=== PATIENT | female | born 1980 | race Caucasian/White ===

== ENCOUNTER 2018-07-15 03:45 | Emergency (ER) | payer OTHER, MEDICAID ==
[~2018-07-15] VITALS: Ht 167.6 cm; Wt 138.3 kg
[~2018-07-15 03:45] MED LIST: ABILIFY20 MG OR; ACCUNEB SO1.25 MG/1 INH; ACETAMINOPHEN-1 EAC1 PO; ACYCLOVIR 400400 MG; ACYCLOVIR 400400 MG PO; ADVIL200 MG PO; ALBUTEROL2.5 MG/0.5 INH; ALDOMET250 MG PO; AMBIEN 10 MG TA10 MG PO; AMBIEN 5 MG TABL5 M1 PO; AMILORIDE HCL-1 EACH OR; AMITRIPTYLINE H10 M3 PO; AMITRIPTYLINE H25 M2 PO; AMITRIPTYLINE H25 M3 PO; AMLODIPINE-ATO1 EAC6; AMLODIPINE-BEN1 EAC2 PO; AMLODIPINE-BEN1 EAC3; AMLODIPINE-BEN1 EAC3 PO; AMLODIPINE-BEN1 EAC5 PO; ARIXTRA; ASPIR 8181 MG PO; ATIVAN1 MG PO; AUGMENTIN 875875 MG PO; AZOR 10-40 MG1 EACH; AZOR 10-40 MG1 EACH PO; AZOR 5-20 MG T1 EACH OR; B-COMPLEX-VITA1 EACH PO; B12INJ; BACTRIM DS TAB1 EACH PO; BENADRYL25 MG PO; BENAZEPRIL HCL10 MG PO; BENTYL 10 MG CA10 M1 PO; BENTYL10 MG PO; BENTYL20 MG PO; BIRTH CONTROL PILLS PO; BRINTELLIX10 MG PO; BRINTELLIX20 MG PO; BUSPIRONE HCL10 MG PO; CAL-MAG-ZINC T1 EACH PO; CALCITRIOL0.25 MCG OR; CALCITRIOL0.5 MCG; CALCITRIOL0.5 MCG PO; CALCITRIOL1 MCG/1 M5 PO; CALCIUM 600 +1 EA10 PO; CALCIUM 600 +1 EAC1 PO; CALCIUM CITRAT1 EA14 OR; CALCIUM CITRAT1 EA15 OR; CALCIUM CITRAT250 MG; CALCIUM MAGNES1 EACH PO; CALCIUM OYSTER500 MG PO; CARAFATE 1 GM TA1 G1 PO; CARAFATE1 GM/10 ML; CARISOPRODOL 3350 MG PO; CARVEDILOL25 MG; CARVEDILOL25 MG PO; CARVEDILOL3.125 MG PO; CELEBREX 200 M200 M1 PO; CELEXA; CELEXA 20 MG TA20 M1 OR; CELEXA40 MG PO; CHANTIX0.5 MG PO; CHANTIX1 MG PO; CHLORPROMAZINE200 MG PO; CIPROFLOXACIN500 M1 PO; CITRATE OF MAG296 ML PO; CLEOCIN HCL300 MG PO; CLONAZEPAM 0.50.5 M1; CLONAZEPAM 0.50.5 M1 PO; CLONAZEPAM 1 MG1 M1 PO; COLACE 100 MG100 MG; COLACE 100 MG100 MG PO; COLACE100 MG PO; COMBIVENT INH; COMPAZINE10 M1 PO; COMPAZINE10 MG PO; COMPAZINE25 M1 PO; COMPAZINE25 M1 RC; COMPAZINE25 MG RECTAL; COREG CR20 MG; COREG25 MG PO; CYMBALTA30 MG PO; CYMBALTA60 MG; CYMBALTA60 MG PO; DARVOCET-N 1001 EACH PO; DEPAKOTE500 MG PO; DESYREL50 MG; DESYREL50 MG PO; DIAZEPAM 10 MG10 M2; DIOVAN160 MG PO; DOMPERIDONE PO; DOXEPIN 50MG CA50 M1 PO; DOXYCYCLINE 10100 MG PO; E-MYCIN250 MG; E-MYCIN250 MG PO; EFFER-K 10 MEQ10 ME1 PO; EFFEXOR XR75 MG PO; EFFEXOR75 MG; ENDUR-ACIN500 MG PO; ERY-TAB250 MG PO; ERYTHROCIN STE250 MG; ERYTHROMYCIN250 MG PO; ETODOLAC500 MG; ETODOLAC500 MG PO; EXPECTA PRENAT1 EACH PO; FIBERCON625 M1 PO; FLAGYL500 MG PO; FLEXERIL; FLEXERIL PO; FLONASE 0.05%50 MCG; FLONASE16 GM; FOLIC ACID 40400 MCG PO; GABAPENTIN 100100 MG PO; GEODON80 MG PO; GLUCOPHAGE XR750 MG; GLUCOPHAGE XR750 MG OR; GLUCOPHAGE XR750 MG PO; GLUCOPHAGE1000 MG; GLUCOPHAGE500 MG PO; GLUMETZA1000 PO; GLYCOLAX POWDER17 G1; HYDROCHLOROTHIA25 M2 PO; HYDROCODON-ACE1 EAC4 PO; HYDROCODON-ACE1 EAC7 PO; HYDROCODONE LIQUID; HYDROCODONE-ACE15 ML PO; HYDROCODONE-AP1 EAC6 PO; HYDROXYZINE HCL25 M1 PO; IBUPROFEN 400400 M1 PO; IBUPROFEN 600600 M1 PO; IBUPROFEN 800800 MG PO; IRON PO; IRON159 MG PO; IRON325 PO; JUNEL FE 1-201 EACH; JUNEL FE 1-201 EACH PO; JUNEL1 EAC1; JUNEL1 EAC1 PO; JUNEL1 EACH PO; KEFLEX500 M1 PO; KEFLEX500 MG PO; LAMICTAL 25 MG25 MG; LAMICTAL XR100 MG; LAMICTAL XR100 MG PO; LAMICTAL XR200 MG PO; LAMICTAL100 MG PO; LAMICTAL150 MG PO; LAMICTAL200 MG PO; LAMOTRIGINE150 MG PO; LASIX 20 MG TAB20 MG PO; LATUDA80 MG PO; LEVOTHROID175 MCG PO; LEVOTHROID25 MCG PO; LEVOTHYROXIN0.112 M1 PO; LEVOTHYROXIN0.125 M1 PO; LEVOTHYROXIN0.175 MG PO; LEVOTHYROXINE0.2 M1; LEVOTHYROXINE0.2 M1 PO; LINZESS145 MCG PO; LINZESS290 MCG; LINZESS290 MCG PO; LITHIUM CARBON600 MG PO; LOESTRIN 24 FE1 EACH PO; LOESTRIN1 EAC1 PO; LORATIDINE 10 M10 M1 PO; LOTREL 10-40 M1 EACH; LOTREL 10-40 M1 EACH PO; LUNESTA3 MG PO; MACROBID 100 M100 M1 PO; MAGNESIUM250 M1 PO; MEDROL DOSPAK21 TA1; MEDROLDOSEPACK PO; MELATONIN3 MG PO; METFORMIN 500500 MG PO; METFORMIN HCL500 MG PO; METOCLOPRAMIDE10 MG PO; MICROGESTIN FE1 EACH PO; MIDAMOR 5MG TABL5 M1 OR; MIDODRINE HCL2.5 M1 PO; MIRALAX17 GM PO; MOBIC15 MG PO; MULTI-VITAMIN1 EAC5 PO; MULTIVITAMINS1 EAC7 PO; NABUMETONE 750750 M1 PO; NAPROSYN500 MG PO; NEURONTIN 400400 M1 PO; NEURONTIN600 MG PO; NEXIUM40 MG PO; NITROFURANTOIN100 MG PO; NORCO 10-325 T1 EACH PO; NORCO 5-325 TA1 EAC1 PO; NORCO 5-325 TA1 EACH; NORCO 5-325 TA1 EACH PO; NORFLEX100 MG PO; NORVASC5 MG PO; OMACOR PO; OMEPRAZOLE20 M1 PO; ONDANSETRON HCL4 M2 PO; ONDANSETRON HCL4 M3 PO; ONDANSETRON ODT4 MG PO; OS-CAL 500+D C1 EACH PO; PENICILLIN VK250 MG PO; PERCOCET 5-3251 EACH; PERCOCET 5-3251 EACH PO; PERCOCET PO; PHENADOZ25 MG RC; PHENAZOPYRIDIN200 M2 PO; PHENERGAN 25 MG25 M1 PO; PHENERGAN25 M2 RC; POTASSIUM20 PO; PREDNISONE 10 M10 M1 PO; PREDNISONE 20 M20 M1 PO; PREDNISONE50 MG PO; PRENATAL PLUS1 EAC4; PRENATAL PLUS1 EAC5; PRENATAL PLUS1 EACH PO; PRILOSEC 10MG C10 M1 PO; PRILOSEC 20 MG20 MG PO; PRILOSEC20 MG PO; PROAIR HFA8.5 GM IH; PROAIR HFA8.5 GM INH; PROBIOTIC1 EAC1 PO; PROPRANOLOL 1010 M1; PROPRANOLOL 1010 M1 PO; PROPRANOLOL 1010 MG PO; PROTONIX40 M2 PO; PROTONIX40 MG PO; PROVENTIL HFA6.7 G1 INH; REGLAN 5 MG TAB5 MG PO; REMERON15 MG; REQUIP 0.25 M0.25 M1 PO; REQUIP 0.25 M0.25 MG; REQUIP 0.25 M0.25 MG OR; REQUIP1 MG PO; RESTORIL15 MG; RESTORIL15 MG PO; ROBAXIN 750 MG750 M1; ROBAXIN500 MG PO; SEROQUEL 100 M100 MG OR; SLOW-MAG64 MG OR; TESSALON PERLE100 MG PO; TESSALON200 MG PO; TOPIRAGEN50 MG OR; TORADOL 10 MG T10 MG PO; TRAMADOL 50 MG50 MG PO; TRAZODONE 150150 M1 PO; TYLENOL325 MG PO; ULTRACET TABLE1 EACH PO; ULTRAM 50MG TAB50 MG PO; ULTRAM50 MG PO; VALACYCLOVIR1000 MG; VALIUM5 MG PO; VANCOMYCIN1.25 GM/21 IV; VENTOLIN HFA INH8 GM IH; VICODIN 5-5001 EACH PO; VISTARIL 25 MG25 M1 PO; VITAMIN B12-FO1 EAC1 PO; VRAYLAR3 MG PO; ZANAFLEX4 MG PO; ZANTAC 150MG T150 M1 PO; ZITHROMAX TRI-500 MG PO; ZOFRAN 4 MG ORAL4 MG PO; ZOFRAN ODT4 MG PO; ZOFRAN ODT4 MG SUBLING; ZOFRAN4 MG PO; ZOFRAN8 MG PO; ZONEGRAN100 MG; ZOSYN 3.373.375 GM/1 IV; ZPAK PO; ZYRTEC10 MG PO; [UNRECOGNIZED DRUG - OTHER] PO; [UNRECOGNIZED DRUG - OTHER] PO; [UNRECOGNIZED DRUG - REMARK]; percocet
[2018-07-15 03:50] VITALS: BP 127/92
[2018-07-15] MEDS ORDERED: VRAYLAR3 MG PO (04:06)
[2018-07-15] MEDS ORDERED: CELEBREX 200 M200 MG PO (04:06)
[2018-07-15] MEDS ORDERED: COMPRO25 MG RECTAL (04:07)
[2018-07-15] MEDS ORDERED: TROKENDI XR25 MG PO (04:07)
[2018-07-15] MEDS ORDERED: NYAMYC15 GM TOP (04:07)
[2018-07-15] MEDS ORDERED: HYDROCODONE-AP1 EAC6 PO (04:10)
[2018-07-15] MEDS ORDERED: PENICILLIN V P500 MG PO (04:10)
== END 2018-07-15 04:19 | disposition home or self-care (01) ==
LOC: M.ERS 03:45
DX: K08.89 Other specified disorders of teeth and supporting structures (principal); R11.0 Nausea; F31.9 Bipolar disorder, unspecified; I11.0 Hypertensive heart disease with heart failure; I50.9 Heart failure, unspecified; I12.9 Hypertensive chronic kidney disease with stage 1 through stage 4 chronic kidney disease, or unspecified chronic kidney disease; E11.22 Type 2 diabetes mellitus with diabetic chronic kidney disease; N18.9 Chronic kidney disease, unspecified; Z98.84 Bariatric surgery status; Z98.890 Other specified postprocedural states; E89.0 Postprocedural hypothyroidism; F17.210 Nicotine dependence, cigarettes, uncomplicated; Z88.5 Allergy status to narcotic agent; Z88.8 Allergy status to other drugs, medicaments and biological substances

== ENCOUNTER 2018-07-20 06:18 | Emergency (ER) | payer OTHER, MEDICAID ==
[~2018-07-20] VITALS: Ht 167.6 cm; Wt 138.3 kg
[~2018-07-20 06:18] MED LIST changes: +CELEBREX 200 M200 MG PO; +COMPRO25 MG RECTAL; -EFFER-K 10 MEQ10 ME1 PO; +NYAMYC15 GM TOP; +PENICILLIN V P500 MG PO; +POTASSIUM CHLO10 MEQ PO; +SYNTHROID150 MCG PO; +TROKENDI XR25 MG PO
[2018-07-20 07:12] LABS: URINE BILIRUBIN NEGATIVE (Negative); URINE BLOOD NEGATIVE (Negative); URINE CLARITY CLEAR; URINE COLOR YELLOW; URINE GLUCOSE-RANDOM NEGATIVE (Negative); URINE KETONES NEGATIVE (Negative); URINE LEUKOCYTES-REFLEX TRACE (Negative); URINE NITRITE-REFLEX NEGATIVE (Negative); URINE PROTEIN NEGATIVE (Negative); URINE SPECIFIC GRAVITY 1.025 (1.005-1.030); URINE UROBILINOGEN 0.2 E.U./dl (0.2-1.0)
[2018-07-20 07:12] LABS: ABSOLUTE EOSINOPHILS 0.2 thou/uL (0.0-0.7); ABSOLUTE LYMPHOCYTES 1.9 thou/uL (0.8-5.3); ABSOLUTE MONOCYTES 0.4 thou/uL (0.0-1.2); BASOPHILS 0.5 %; EOSINOPHILS 3.2 %; HEMATOCRIT 46.4 % (37.0-47.0); HEMOGLOBIN 15.8 gm/dL (12.0-15.0); LYMPHOCYTES 28.9 %; MCHC 34.1 g/dL (28.0-37.0); MCV 96.6 fL (80.0-100.0); MONOCYTES 6.1 %; MPV 9.2 fl. (7.2-11.1); NUCLEATED RBCS 0 /100WBC; PLATELET COUNT* 167 thou/uL (150-400); POLYS 61.3 %; RBC 4.81 mil/uL (4.20-5.00); RDW-CV 13.7 % (10.5-14.5); WBC 6.5 thou/uL (4.0-11.0)
[2018-07-20 07:15] LABS: CALCIUM 8.2 mg/dL (8.5-10.1); CREATININE 1.4 mg/dL (0.6-1.3); POTASSIUM 3.4 mmol/L (3.5-5.1)
[2018-07-20 07:20] LABS: ALBUMIN 3.1 g/dL (3.4-5.0); TOTAL BILIRUBIN 0.4 mg/dL (<0.1-1.0); TOTAL PROTEIN 6.9 g/dL (6.4-8.2)
[2018-07-20] MEDS ORDERED: PHENERGAN 25 MG25 M1 PO (09:09)
[2018-07-20 09:38] VITALS: BP 114/66
[2018-07-21 13:32] LABS: SQUAMOUS 0-3 Few /LPF (0-3); URINE RBC 0-2 Rare /HPF (0-2); URINE WBC-REFLEX 0-5 Rare /HPF (0-5)
== END 2018-07-20 09:42 | disposition home or self-care (01) ==
LOC: M.ERS 06:18
PROVIDERS: Emergency Medicine
DX: R11.2 Nausea with vomiting, unspecified (principal); R10.13 Epigastric pain; R19.7 Diarrhea, unspecified; F31.9 Bipolar disorder, unspecified; F41.9 Anxiety disorder, unspecified; I11.0 Hypertensive heart disease with heart failure; I50.9 Heart failure, unspecified; E28.2 Polycystic ovarian syndrome; F17.210 Nicotine dependence, cigarettes, uncomplicated; Z88.6 Allergy status to analgesic agent; Z85.850 Personal history of malignant neoplasm of thyroid; Z88.8 Allergy status to other drugs, medicaments and biological substances; Z98.890 Other specified postprocedural states; Z90.49 Acquired absence of other specified parts of digestive tract

== ENCOUNTER 2018-07-28 23:39 | Inpatient (IN) | payer OTHER, MEDICAID ==
[~2018-07-28] VITALS: Ht 167.6 cm; Wt 133.8 kg
--- NOTE | ~2018-07-28 | CON ---
[address] [address] CONSULTATION Name: DOROTEO BHAKTA Room: [address] IN .R.#: [id number] Admission: 07/29/18 Attend Phys: Chad Carpenter MD Discharge: Date of : 76 Report #: [id number] THIS REPORT FOR: //name// CC: Babar Carpenter DATE OF SERVICE: 07/29/2018 REQUESTING PHYSICIAN: Dr. Chad Carpenter. REASON FOR CONSULTATION: Persistent nausea, vomiting and abdominal pain. The patient also reports loose stools for the past couple of months. HISTORY OF PRESENT ILLNESS: This is a 37-year-old female with history of lap band with reversal and gastric bypass to follow. The patient reports that in the last couple of weeks, she has been sick to her stomach and had been nauseous and vomiting. She also complains of abdominal pain, which is above her umbilicus. Her bowel habits are frequent and she may have 2-3 loose stools per day. She denies any hematochezia or melena. PAST MEDICAL AND SURGICAL HISTORY: Significant for history of lap band with reversion and gastric bypass surgery, hypothyroidism, gastroparesis, history of Lyme disease, bipolar mood disorder, anxiety disorder, gallbladder disease, status post cholecystectomy, history of total thyroidectomy due to thyroid cancer, chronic renal insufficiency, hiatal hernia, polycystic ovarian disease, CHF. ALLERGIES: SIGNIFICANT TO TAPE. MEDICATIONS: Please refer to hospital MAR. SOCIAL HISTORY: The patient reports 1 pack of cigarettes per day, but denies alcohol or use of drugs. FAMILY HISTORY: Noncontributory. PHYSICAL EXAMINATION: VITAL SIGNS: Reveals blood pressure of 123/46, respirations 18, pulse 57, temperature 98.5. LUNGS: Clear. CARDIOVASCULAR: Regular. ABDOMEN: Large, tender to palpation in the epigastric region. Bowel sounds are positive, hypoactive. NEUROLOGIC: The patient is alert, oriented x 3[place] [address] CONSULTATION Name: DOROTEO BHAKTA Fer Room: [address] IN [facility]#: [id number] Admission: 07/29/18 Attend Phys: Chad Carpenter MD Discharge: Date of : 78 Report #: [id number] LABORATORY DATA: Reveal sodium of 144, potassium 4.0, BUN is 19, creatinine 1.1. Lipase is 57. Liver function tests are all within normal limits. GGT is 252, albumin is 3.2. WBC is 8.4 with hemoglobin of 16.1 and platelets of 174. IMAGING: CT of abdomen and pelvis was done on admission. This is significant for the patient's previous history of surgeries. There is no evidence of inflammatory mass, ascites or bowel obstruction noted in this study. ASSESSMENT AND PLAN: The patient with history of lap band, with revision and gastric bypass surgery, who also has gastroparesis and complains of diarrhea and persistent nausea and vomiting for 2 weeks. We will go ahead and perform an upper endoscopy and make further recommendation based on results. If this is negative, we will consider checking her for small intestinal bacterial overgrowth as she also reports a lot of diarrhea. By: [id number] 1935Jaylen Weeks MD /nt
--- NOTE | ~2018-07-28 | PROC ---
[facility] [address] [place] [address] PROCEDURE REPORT Name: DOROTEO BHAKTA Room: [address] IN ..#: [id number] Admission: 07/29/18 Attend Phys: Chad Carpenter MD Discharge: 07/30/18 Date of : 76 Report #: [id number] THIS REPORT FOR: //name// For GI report, please see the Provation report in Perceptive 7 content. By: 0639Medical Records Staff CAMERON /BLOSSOM
[~2018-07-28 23:39] MED LIST changes: -ACYCLOVIR 400400 MG; -B12INJ; +B12INJ INJECTION; +FLONASE 0.05%50 MCG NASAL; +LEVAQUIN 750 M750 MG PO; -LINZESS290 MCG; -PRENATAL PLUS1 EAC5; +PRENATAL PLUS1 EAC5 PO
[2018-07-28 23:52] VITALS: BP 143/93
[2018-07-28] MEDS ORDERED: PREDNISONE 10 M10 MG (23:59)
[2018-07-29] VITALS (7 sets, daily range): BP systolic 98–152; BP diastolic 46–73
--- NOTE | 2018-07-29 00:38 | NUR ---
MULTIPLE ATTEMPTS AT IV ACCESS UNSUCCESSFULL
[2018-07-29 00:56] LABS: ABSOLUTE LYMPHOCYTES 1.1 thou/uL (0.8-5.3); ABSOLUTE MONOCYTES 0.3 thou/uL (0.0-1.2); BASOPHILS 0.5 %; HEMATOCRIT 48.6 % (37.0-47.0); HEMOGLOBIN 16.1 gm/dL (12.0-15.0); LYMPHOCYTES 12.5 %; MCH 32.3 pg (26.0-34.0); MCHC 33.2 g/dL (28.0-37.0); MCV 97.4 fL (80.0-100.0); MONOCYTES 4.1 %; MPV 9.1 fl. (7.2-11.1); NUCLEATED RBCS 0 /100WBC; PLATELET COUNT* 174 thou/uL (150-400); POLYS 82.9 %; RBC 4.99 mil/uL (4.20-5.00); RDW-CV 14.1 % (10.5-14.5); WBC 8.4 thou/uL (4.0-11.0)
[2018-07-29 01:06] LABS: CALCIUM 8.8 mg/dL (8.5-10.1); CREATININE 1.3 mg/dL (0.6-1.3); POTASSIUM 4.6 mmol/L (3.5-5.1)
[2018-07-29 01:11] LABS: ALBUMIN 3.2 g/dL (3.4-5.0); TOTAL BILIRUBIN 0.3 mg/dL (<0.1-1.0); TOTAL PROTEIN 7.1 g/dL (6.4-8.2)
--- NOTE | 2018-07-29 05:02 | NUR ---
PT ARRIVED ON UNIT AT 0422 FROM ED. VITALS STABLE. OX 99% ON 4L. ADMIT ASSESSMENT COMPLETE. FALL AGREEMENT SIGNED. BELONINGS WITH PT. BRUISING ON ARMS BILATERALY FROM PREVIOUS IV ATTEMPTS. IV PLACEED IN R AC BY ED, ATTEMPTED FLUSH WHEN ARRIVE, OCCLUDED. UP WITH ASSIST. CLEAR LIQUID DIET. COMPLAINT OF NAUSEA AND ABDOMINAL PAIN. FALL PRECAUTIONS IN PLACE. CALL LIGHT WITHIN REACH. HOURLY ROUNDING COMPLETE. WILL CONTINUE TO MONITOR.
--- NOTE | 2018-07-29 06:20 | NUR ---
Admit this am with nausea and vomiting. I agree with Jordan ENGsoldering machine feeder and charting. Dr Carpenter notified of IV being occluded and the difficulty in getting an IV started. He said no PICC line at this time and have IV team start the IV.
--- NOTE | 2018-07-29 11:28 | NUR ---
LEFT CEPHALIC VESSEL ACCESSED FOR 20 BAKARI MIDLINE 8CM. LINE ADVANCE TO THE HUB WITH NO RESISTANCE MET. GOOD BRISK BLOOD RETURN NOTED AND LABS DRAWN. LINE FLUSHED FREELY, INSERTION SITE DRESSED AND REPORT GIVEN TO NURSING STAFF.
[2018-07-29 11:44] LABS: CALCIUM 7.7 mg/dL (8.5-10.1); CREATININE 1.1 mg/dL (0.6-1.3); MAGNESIUM 1.9 mg/dL (1.8-2.4)
--- NOTE | 2018-07-29 13:15 | NUR ---
Nutrition: Pt seen for nsg risk 2 points. Per [employer], pt has always weighed in 290s. Current wt: 295#. Albumin 3.2. Admitted iwth dehydration. H/o gastric bypass and lap band, PTSD, bipolar, CHF. Clear liquid diet ordered now. Please advance as appropriate, in timely manner. Mild risk.
--- NOTE | 2018-07-29 16:37 | EKG ---
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: : 1980 Requested By: Dylan Arroyo Order Number: [id number] Reading MD: Reji Dixon Measurements Intervals [place] Rate: 55 P: 33 IN: 135 QRS: 71 QRSD: 114 T: 51 QT: 431 QTc: 413 Interpretive Statements Sinus rhythm Ventricular premature complex Borderline intraventricular conduction delay ST elev, probable normal early repol pattern Baseline wander in lead(s) V1,V2,V3,V4,V5,V6 Compared to ECG 01/12/2017 14:47:45 Ventricular premature complex(es) now present ST (T wave) deviation now present Electronically Signed On 07-29-2018 16:37:12 OUTDOOR LANDSCAPE ARCHITECT by Reji Dixon [email or web address] <ELECTRONICALLY SIGNED> By: Reji Dixon MD, FACC 07/29/18 1637 1133 1133 Reji Dixon MD, FACC /EPI
--- NOTE | 2018-07-29 18:28 | NUR ---
ALERT AND ORIENTED X4. UP WITH ASSIST X1 WITH MIN ASSIST. IV IS PATENT AND INFUSING. PAIN BEING MANAGED WITH IV PAIN MEDICATION. NAUSEA BEING MANAGED WITH IV AND PO NAUSEA MEDICATION. EGD DONE TODAY. FULL LIQUID DIET AT THIS TIME, ADVANCE TOLERATED. VSS ON 4L O2. HOURLY ROUNDS HAVE BEEN MAINTAINED WHILE ON UNIT. CALL LIGHT IS WITHIN REACH. NURSING WILL CONTINUE TO MONITOR.
--- NOTE | 2018-07-30 03:58 | NUR ---
ASSUMED CARE AT START OF SHIFT PT CONITNUE TO C/O OF ABD PAIN ALTHOUGH PT IS VERY DROWSY AND BARLEY ABLE TO FOCUS AND STAY AWAKE. PAIN MEDICATION GIVEN PRESCRIBED, WILL CONITNUE WITH CURRENT PLAN OF CARE . NO C/O N/V THIS SHIFT.
[2018-07-30 04:53] LABS: ABSOLUTE EOSINOPHILS 0.1 thou/uL (0.0-0.7); ABSOLUTE LYMPHOCYTES 2.3 thou/uL (0.8-5.3); ABSOLUTE MONOCYTES 0.3 thou/uL (0.0-1.2); ABSOLUTE NEUTROPHILS 2.8 thou/uL (1.6-8.1); BASOPHILS 0.2 %; EOSINOPHILS 1.6 %; HEMATOCRIT 39.8 % (37.0-47.0); LYMPHOCYTES 41.9 %; MCH 32.5 pg (26.0-34.0); MCHC 33.2 g/dL (28.0-37.0); MCV 97.8 fL (80.0-100.0); MONOCYTES 5.7 %; MPV 9.4 fl. (7.2-11.1); NUCLEATED RBCS 0 /100WBC; PLATELET COUNT* 123 thou/uL (150-400); POLYS 50.6 %; RBC 4.07 mil/uL (4.20-5.00); RDW-CV 13.9 % (10.5-14.5); WBC 5.5 thou/uL (4.0-11.0)
[2018-07-30 05:19] LABS: CALCIUM 7.2 mg/dL (8.5-10.1); CREATININE 1.1 mg/dL (0.6-1.3); POTASSIUM 4.1 mmol/L (3.5-5.1)
[2018-07-30 05:47] LABS: HEMOGLOBIN 13.2 gm/dL (12.0-15.0)
[2018-07-30] MEDS ORDERED: ERYTHROMYCIN250 M1 PO (07:11)
[2018-07-30] MEDS ORDERED: PHENERGAN 25 MG25 M1 PO (07:11)
[2018-07-30] MEDS ORDERED: PREDNISONE 10 M10 MG PO (07:11)
[2018-07-30] MEDS ORDERED: PANTOPRAZOLE SO40 M1 PO (07:16)
[2018-07-30 08:00] VITALS: BP 116/58
[2018-07-30 09:34] VITALS: BP 98/64
[2018-07-30 09:37] VITALS: BP 98/64
--- NOTE | 2018-07-30 10:54 | NUR ---
PATIENT DISCHARGED FROM UNIT AT 1045. ALERT AND ORIENTED X 4. VITAL SIGNS STABLE ON ROOM AIR. UP AD PAULETTE IN ROOM. IV DISCONTINUED. DENIES PAIN AND NAUSEA. DISCHARGE INSTRUCTIONS, MEDICATION INFORMATION, AND SCRIPTS GIVEN TO PATIENT. LEFT WITH ALL BELONGINGS. PATIENT LEFT WITH SPOUSE VIA CAR.
[2018-07-30 11:08] VITALS: BP 98/64
== END 2018-07-30 10:45 | disposition home or self-care (01) | DRG 391 ==
LOC: M.ERS 23:39 → M.ORTHSURG 07-29 03:06 → M.TBA-ER 07-29 03:06 → M.ORTHSURG 07-29 04:37
PROVIDERS: Internal Medicine; Personal Emergency Response Attendant; ADMIT Family Medicine
PROC: 0DJ08ZZ Inspection of Upper Intestinal Tract, Via Natural or Artificial Opening Endoscopic (ICD-10-PCS; principal; 2018-07-29)
PROC: 05HY33Z Insertion of Infusion Device into Upper Vein, Percutaneous Approach (ICD-10-PCS; principal; 2018-07-29)
DX: K29.00 Acute gastritis without bleeding (principal); J96.20 Acute and chronic respiratory failure, unspecified whether with hypoxia or hypercapnia; I13.0 Hypertensive heart and chronic kidney disease with heart failure and stage 1 through stage 4 chronic kidney disease, or unspecified chronic kidney disease; K21.0 Gastro-esophageal reflux disease with esophagitis; E89.0 Postprocedural hypothyroidism; F31.9 Bipolar disorder, unspecified; F41.9 Anxiety disorder, unspecified; I50.9 Heart failure, unspecified; N18.9 Chronic kidney disease, unspecified; E28.2 Polycystic ovarian syndrome; E86.0 Dehydration; E05.90 Thyrotoxicosis, unspecified without thyrotoxic crisis or storm; F17.210 Nicotine dependence, cigarettes, uncomplicated; J40 Bronchitis, not specified as acute or chronic; Z98.0 Intestinal bypass and anastomosis status; Z98.84 Bariatric surgery status; Z90.49 Acquired absence of other specified parts of digestive tract; Z85.850 Personal history of malignant neoplasm of thyroid; Z88.8 Allergy status to other drugs, medicaments and biological substances; Z82.49 Family history of ischemic heart disease and other diseases of the circulatory system

== ENCOUNTER 2018-09-18 23:19 | Emergency (ER) | payer OTHER, MEDICAID ==
[~2018-09-18] VITALS: Ht 167.6 cm; Wt 131.5 kg
[~2018-09-18 23:19] MED LIST changes: +ERYTHROMYCIN250 M1 PO; +PANTOPRAZOLE SO40 M1 PO; +PREDNISONE 10 M10 MG; +PREDNISONE 10 M10 MG PO
[2018-09-19 00:28] LABS: ABSOLUTE BASOPHILS 0.1 thou/uL (0.0-0.2); ABSOLUTE EOSINOPHILS 0.6 thou/uL (0.0-0.7); ABSOLUTE LYMPHOCYTES 2.3 thou/uL (0.8-5.3); ABSOLUTE MONOCYTES 0.4 thou/uL (0.0-1.2); ABSOLUTE NEUTROPHILS 5.2 thou/uL (1.6-8.1); BASOPHILS 0.6 %; EOSINOPHILS 6.8 %; HEMATOCRIT 47.1 % (37.0-47.0); HEMOGLOBIN 15.8 gm/dL (12.0-15.0); LYMPHOCYTES 26.7 %; MCH 32.3 pg (26.0-34.0); MCHC 33.6 g/dL (28.0-37.0); MCV 96.1 fL (80.0-100.0); MONOCYTES 4.5 %; MPV 8.6 fl. (7.2-11.1); NUCLEATED RBCS 0 /100WBC; PLATELET COUNT* 149 thou/uL (150-400); POLYS 61.4 %; RBC 4.89 mil/uL (4.20-5.00); RDW-CV 13.3 % (10.5-14.5); WBC 8.6 thou/uL (4.0-11.0)
[2018-09-19 00:39] LABS: CALCIUM 8.7 mg/dL (8.5-10.1); CREATININE 1.4 mg/dL (0.6-1.3); POTASSIUM 3.7 mmol/L (3.5-5.1)
[2018-09-19] MEDS ORDERED: PREDNISONE 20 M20 M1 PO (00:39)
[2018-09-19 00:44] LABS: TOTAL BILIRUBIN 0.5 mg/dL (<0.1-1.0); TOTAL PROTEIN 6.5 g/dL (6.4-8.2)
[2018-09-19 01:07] VITALS: BP 111/63
== END 2018-09-19 01:08 | disposition home or self-care (01) ==
LOC: M.ERS 23:19
PROVIDERS: Nurse Practitioner Family
DX: J20.9 Acute bronchitis, unspecified (principal); E89.0 Postprocedural hypothyroidism; F31.9 Bipolar disorder, unspecified; F41.9 Anxiety disorder, unspecified; I13.0 Hypertensive heart and chronic kidney disease with heart failure and stage 1 through stage 4 chronic kidney disease, or unspecified chronic kidney disease; N18.3 Chronic kidney disease, stage 3 (moderate); I50.9 Heart failure, unspecified; E28.2 Polycystic ovarian syndrome; K31.84 Gastroparesis; F17.210 Nicotine dependence, cigarettes, uncomplicated; Z88.6 Allergy status to analgesic agent; Z85.850 Personal history of malignant neoplasm of thyroid; Z88.8 Allergy status to other drugs, medicaments and biological substances; Z98.890 Other specified postprocedural states; Z90.49 Acquired absence of other specified parts of digestive tract

== ENCOUNTER 2018-09-27 17:56 | Inpatient (IN) | payer OTHER, MEDICAID ==
[~2018-09-27] VITALS: Ht 167.6 cm; Wt 129.7 kg
[~2018-09-27 17:56] MED LIST changes: -SYNTHROID150 MCG PO; +SYNTHROID175 MCG PO
[2018-09-27 18:03] VITALS: BP 156/100
[2018-09-27] MEDS ORDERED: PHENERGAN 25 MG25 M1 PO (18:14)
[2018-09-27] MEDS ORDERED: LASIX 40 MG TAB40 M2 PO (18:14)
[2018-09-27] MEDS ORDERED: AMBIEN 10 MG TA10 MG PO (18:15)
[2018-09-27] MEDS ORDERED: VENTOLIN HFA 1818 GM INH (18:15)
[2018-09-27] MEDS ORDERED: METFORMIN HCL500 MG PO (18:15)
[2018-09-27] MEDS ORDERED: ALBUTEROL2.5 MG/31 INH (18:15)
[2018-09-27 18:29] LABS: HEMATOCRIT 49.5 % (37.0-47.0); HEMOGLOBIN 16.9 gm/dL (12.0-15.0); MCH 32.4 pg (26.0-34.0); MCHC 34.1 g/dL (28.0-37.0); MPV 8.5 fl. (7.2-11.1); NUCLEATED RBCS 0 /100WBC; PLATELET COUNT* 250 thou/uL (150-400); RBC 5.21 mil/uL (4.20-5.00); RDW-CV 13.3 % (10.5-14.5); WBC 8.7 thou/uL (4.0-11.0)
[2018-09-27 18:39] LABS: ANION GAP 9 mmol/L (7-16); BUN 19 mg/dL (7-18); CALCIUM 8.1 mg/dL (8.5-10.1); CHLORIDE 104 mmol/L (98-107); CO2 30 mmol/L (21-32); CREATININE 1.7 mg/dL (0.6-1.3); GLUCOSE 102 mg/dL (70-99); POTASSIUM 3.1 mmol/L (3.5-5.1); SODIUM 143 mmol/L (136-145)
[2018-09-27 18:46] LABS: ALBUMIN 3.4 g/dL (3.4-5.0); ALKALINE PHOSPHATASE 97 U/L (46-116); LIPASE 56 U/L (73-393); SGOT 10 U/L (15-37); SGPT 14 U/L (30-65); TOTAL BILIRUBIN 0.3 mg/dL (<0.1-1.0); TOTAL PROTEIN 7.4 g/dL (6.4-8.2); TROPONIN-I LEVEL <0.06 ng/mL (<0.06)
[2018-09-27 19:00] LABS: URINE BLOOD NEGATIVE (Negative); URINE CLARITY CLEAR; URINE COLOR YELLOW; URINE GLUCOSE-RANDOM NEGATIVE (Negative); URINE KETONES NEGATIVE (Negative); URINE LEUKOCYTES-REFLEX NEGATIVE (Negative); URINE NITRITE-REFLEX NEGATIVE (Negative); URINE PROTEIN NEGATIVE (Negative); URINE SPECIFIC GRAVITY 1.025 (1.005-1.030); URINE UROBILINOGEN 0.2 E.U./dl (0.2-1.0)
[2018-09-27 19:05] LABS: URINE BILIRUBIN 1+ (Negative)
[2018-09-27 19:07] LABS: ICTOTEST (BILI CONFIRMATORY) Negative (Negative)
[2018-09-27 19:12] LABS: ABSOLUTE EOSINOPHILS 0.4 thou/uL (0.0-0.7); ABSOLUTE MONOCYTES 0.4 thou/uL (0.0-1.2); ABSOLUTE NEUTROPHILS 4.8 thou/uL (1.6-8.1)
[2018-09-27 19:13] LABS: PLATELET ESTIMATE ADEQUATE
[2018-09-27 20:59] VITALS: BP 127/80
[2018-09-27 21:00] VITALS: BP 142/99
[2018-09-28 07:55] VITALS: BP 104/70
--- NOTE | 2018-09-28 13:05 | EKG ---
[place] [address] ELECTROCARDIOGRAM REPORT Name: DOROTEO BHAKTA Room: [address] ADM IN .R.#: [id number] Admission: 09/27/18 Attend Phys: Meño Orr MD Discharge: Date of : 76 Report #: [id number] THIS REPORT FOR: //name// [facility] ED Test Date: 2018-09-27 Test Time: 18:12:58 Pat Name: DOROTEO BHAKTA Department: Room: [facility] Gender: F Auto Roller: VELMA : 1980 Requested By: Enedelia Babb Order Number: [id number] MD: Triston Caruso Measurements Intervals [place] Rate: 89 P: 39 SD: 134 QRS: 51 QRSD: 108 T: 7 QT: 375 QTc: 457 Interpretive Statements Sinus rhythm Probable left atrial enlargement Baseline wander in lead(s) V6 Compared to ECG 07/29/2018 11:33:45 rate increased Electronically Signed On 09-28-2018 13:05:25 CHIEF PILOT by Triston Caruso [email or web address] <ELECTRONICALLY SIGNED> By: Triston Caruso MD, [facility] 09/28/18 0417 1812 181 Triston Caruso MD, [facility] /EPI
[2018-09-28 16:00] VITALS: BP 131/80
[2018-09-29] VITALS: BP 122/79
[2018-09-29 07:50] VITALS: BP 140/83
[2018-09-29 11:16] LABS: HEMOGLOBIN 15.6 gm/dL (12.0-15.0); MCH 31.8 pg (26.0-34.0); MCHC 33.2 g/dL (28.0-37.0); MCV 95.8 fL (80.0-100.0); MPV 8.7 fl. (7.2-11.1); NUCLEATED RBCS 0 /100WBC; PLATELET COUNT* 190 thou/uL (150-400)
[2018-09-29 11:25] LABS: CALCIUM 7.2 mg/dL (8.5-10.1); CREATININE 1.1 mg/dL (0.6-1.3); POTASSIUM 3.5 mmol/L (3.5-5.1)
[2018-09-29 11:56] LABS: ABSOLUTE LYMPHOCYTES 0.7 thou/uL (0.8-5.3); ABSOLUTE MONOCYTES 0.1 thou/uL (0.0-1.2); ABSOLUTE NEUTROPHILS 9.2 thou/uL (1.6-8.1); ANISOCYTOSIS 1+; PLATELET ESTIMATE ADEQUATE; POIKILOCYTOSIS 1+
--- NOTE | 2018-09-29 12:07 | CON ---
[address] [address] CONSULTATION Name: DOROTEO BHAKTA Room: [address] IN M.R.#: [id number] Admission: 09/27/18 Attend Phys: Meño Orr MD Discharge: Date of : 76 Report #: [id number] THIS REPORT FOR: //name// CC: Babar Orr MD DATE OF SERVICE: 09/28/2018 REASON FOR CONSULT: Nausea, vomiting, abdominal pain. HISTORY OF PRESENT ILLNESS: This is a 37-year-old female who is well known to me as I had performed upper endoscopy back in 07/2018. At that time, she had symptoms of nausea, vomiting and abdominal pain. She has history of gastric bypass surgery and her upper endoscopy was reflective of that. She also had a small hiatal hernia. Subsequent to her upper scope, she was placed on erythromycin and was told to continue her PPI. She reports that she was doing very well for almost 3 months when her symptoms started coming back, mainly were nausea, vomiting and bloating. Since hospitalization, she had labs and imaging studies. The imaging studies are consistent with her previous history of gastric bypass surgery. Labs revealed acute renal failure, most probably secondary to symptoms of nausea, vomiting and dehydration. The patient also reports melanotic stool for the past couple of days. Her hemoglobin is stable at 16. PAST MEDICAL HISTORY: Significant for history of gastric bypass surgery, cellulitis, abdominal pain, renal failure, gastroesophageal reflux disease, asthma, bipolar mood disorder, posttraumatic stress disorder, thyroid CA, ventricular dysfunction, polycystic ovarian syndrome, history of , lap band reversal, total thyroidectomy, gallbladder disease, status post cholecystectomy, seizure disorder, gastroparesis. ALLERGIES: SIGNIFICANT TO SCOPOLAMINE TAPE AND NSAIDs. MEDICATIONS: Please refer to MAR. SOCIAL HISTORY: The patient reports smoking 1 pack of cigarettes per day x 5 years. Denies alcohol use. FAMILY HISTORY: Negative. PHYSICAL EXAMINATION: VITAL SIGNS: Reveals normal vitals. LUNGS: Clear. CARDIOVASCULAR: [place] [address] CONSULTATION Name: DOROTEO BHAKTA Room: [address] IN ..#: [id number] Admission: 09/27/18 Attend Phys: Meño Orr MD Discharge: Date of : 78 Report #: [id number] ABDOMEN: Large, soft, mildly tender to palpation in the epigastric region. Bowel sounds are positive. LABORATORY DATA: Reveal sodium of 143, potassium 3.1, BUN is 19, creatinine 1.7, glucose 102, AST is 10, ALT is 14, alkaline phosphatase 97, total bilirubin is 0.3, lipase is 56. WBC is 8.7, hemoglobin 16.9, platelet is 250. IMAGING: CT of abdomen and pelvis was obtained. This was significant for postoperative changes consistent with Basilia-en-Y gastric bypass surgery, cholecystectomy, ventral abdominal hernia repair. There is also minimal prominence of CBD which has been stable. ASSESSMENT AND PLAN: The patient with symptoms of nausea, vomiting and report of melanotic stool for the past couple of days. We will await her followup CBC and if this drops, we will consider repeating upper endoscopy. She had reported that she initially responded nicely to erythromycin, but this respond had faded away in the last week or so. This is consistent tachyphylaxis of the erythromycin. We will ask her to hold erythromycin for 10 days and restart once again in 10 days. Meanwhile, we will help her with antiemetics. We also had recommended her to consider a hydrogen breath test as we told that she may have small intestinal bacterial overgrowth. The patient apparently has never followed up with this. <ELECTRONICALLY SIGNED> By: Jaylen Weeks MD 09/29/18 1207 1450 [id number] Weeks MD /nt
[2018-09-29] MEDS ORDERED: ERYTHROMYCIN250 M1 PO (13:36)
[2018-09-29 15:25] VITALS: BP 140/83
== END 2018-09-29 17:30 | disposition home or self-care (01) | DRG 378 ==
LOC: M.ERS 17:56 → M.TBA-ER 19:18 → M.3W 19:18
PROVIDERS: Internal Medicine; Physician Assistant; ADMIT Internal Medicine
DX: K92.1 Melena (principal); J44.1 Chronic obstructive pulmonary disease with (acute) exacerbation; N17.9 Acute kidney failure, unspecified; K21.9 Gastro-esophageal reflux disease without esophagitis; J45.909 Unspecified asthma, uncomplicated; F31.9 Bipolar disorder, unspecified; E28.2 Polycystic ovarian syndrome; G40.909 Epilepsy, unspecified, not intractable, without status epilepticus; E89.0 Postprocedural hypothyroidism; I10 Essential (primary) hypertension; K44.9 Diaphragmatic hernia without obstruction or gangrene; Z95.1 Presence of aortocoronary bypass graft; Z85.850 Personal history of malignant neoplasm of thyroid; Z90.49 Acquired absence of other specified parts of digestive tract

== ENCOUNTER 2018-10-07 06:32 | Inpatient (IN) | payer OTHER, MEDICAID ==
[~2018-10-07] VITALS: Ht 167.6 cm; Wt 135.1 kg
[~2018-10-07 06:32] MED LIST changes: +ALBUTEROL2.5 MG/31 INH; +LASIX 40 MG TAB40 M2 PO; +VENTOLIN HFA 1818 GM INH
[2018-10-07 06:42] VITALS: BP 138/78
[2018-10-07] MEDS ORDERED: ZOFRAN ODT4 MG DISSOLVE (06:48)
[2018-10-07] MEDS ORDERED: PROMS25 WY RECTAL (06:48)
[2018-10-07 07:57] LABS: ABSOLUTE BASOPHILS 0.1 thou/uL (0.0-0.2); ABSOLUTE EOSINOPHILS 0.3 thou/uL (0.0-0.7); ABSOLUTE LYMPHOCYTES 1.9 thou/uL (0.8-5.3); ABSOLUTE MONOCYTES 0.4 thou/uL (0.0-1.2); ABSOLUTE NEUTROPHILS 5.7 thou/uL (1.6-8.1); EOSINOPHILS 3.3 %; HEMATOCRIT 48.2 % (37.0-47.0); LYMPHOCYTES 22.8 %; MCH 31.8 pg (26.0-34.0); MCHC 33.2 g/dL (28.0-37.0); MCV 95.8 fL (80.0-100.0); MONOCYTES 4.8 %; MPV 9.3 fl. (7.2-11.1); NUCLEATED RBCS 0 /100WBC; PLATELET COUNT* 173 thou/uL (150-400); POLYS 68.1 %; RBC 5.03 mil/uL (4.20-5.00); RDW-CV 13.6 % (10.5-14.5); WBC 8.4 thou/uL (4.0-11.0)
[2018-10-07 08:05] LABS: ANION GAP 10 mmol/L (7-16); BUN 17 mg/dL (7-18); CALCIUM 8.7 mg/dL (8.5-10.1); CHLORIDE 105 mmol/L (98-107); CO2 28 mmol/L (21-32); CREATININE 1.5 mg/dL (0.6-1.3); GLUCOSE 95 mg/dL (70-99); POTASSIUM 3.4 mmol/L (3.5-5.1); SODIUM 143 mmol/L (136-145)
[2018-10-07 08:12] LABS: ALBUMIN 3.4 g/dL (3.4-5.0); ALKALINE PHOSPHATASE 122 U/L (46-116); LIPASE 62 U/L (73-393); SGOT 13 U/L (15-37); SGPT 21 U/L (30-65); TOTAL BILIRUBIN 0.6 mg/dL (<0.1-1.0); TOTAL PROTEIN 7.2 g/dL (6.4-8.2); TROPONIN-I LEVEL <0.06 ng/mL (<0.06)
[2018-10-07 08:35] LABS: URINE BILIRUBIN NEGATIVE (Negative); URINE BLOOD NEGATIVE (Negative); URINE CLARITY CLEAR; URINE COLOR YELLOW; URINE GLUCOSE-RANDOM NEGATIVE (Negative); URINE KETONES NEGATIVE (Negative); URINE LEUKOCYTES-REFLEX NEGATIVE (Negative); URINE NITRITE-REFLEX NEGATIVE (Negative); URINE PROTEIN NEGATIVE (Negative); URINE UROBILINOGEN 0.2 E.U./dl (0.2-1.0)
[2018-10-07 13:13] VITALS: BP 126/76
--- NOTE | 2018-10-07 15:34 | EKG ---
[place] [address] ELECTROCARDIOGRAM REPORT Name: DOROTEO BHAKTA Room: [place] [address] ADM IN .R.#: [id number] Admission: 10/07/18 Attend Phys: Salbador Mckeon MD Discharge: Date of : 76 Report #: [id number] THIS REPORT FOR: //name// [facility] ED Test Date: 2018-10-07 Test Time: 07:41:19 Pat Name: DOROTEO BHAKTA Department: Room: [facility] Gender: Forensic Toxicologist: Sveta BHATTI : 1980 Requested By: Jose Childs Order Number: [id number] MD: Bob Strange Measurements Intervals [place] Rate: 58 P: 47 IA: 168 QRS: 46 QRSD: 113 T: 21 QT: 435 QTc: 428 Interpretive Statements Sinus rhythm Probable left atrial enlargement Borderline intraventricular conduction delay Low voltage, precordial leads Compared to ECG 09/27/2018 18:12:58 Low QRS voltage now present Electronically Signed On 10-07-2018 15:34:17 ENVIRONMENTAL SAMPLER by Bob Strange [email or web address] <ELECTRONICALLY SIGNED> By: Bob Strange MD, FACC 10/07/18 1534 0741 0741 Bob Strange MD, [facility] /EPI
[2018-10-07 15:48] VITALS: BP 126/76
[2018-10-07 20:00] VITALS: BP 109/64
[2018-10-08] VITALS: BP 93/45
[2018-10-08 04:00] VITALS: BP 105/55
[2018-10-08 07:25] LABS: ABSOLUTE EOSINOPHILS 0.3 thou/uL (0.0-0.7); ABSOLUTE LYMPHOCYTES 2.9 thou/uL (0.8-5.3); ABSOLUTE MONOCYTES 0.4 thou/uL (0.0-1.2); ABSOLUTE NEUTROPHILS 3.3 thou/uL (1.6-8.1); BASOPHILS 0.4 %; EOSINOPHILS 4.3 %; HEMATOCRIT 41.5 % (37.0-47.0); LYMPHOCYTES 41.4 %; MCH 31.9 pg (26.0-34.0); MCHC 33.3 g/dL (28.0-37.0); MCV 95.8 fL (80.0-100.0); MONOCYTES 6.2 %; MPV 9.5 fl. (7.2-11.1); NUCLEATED RBCS 0 /100WBC; PLATELET COUNT* 157 thou/uL (150-400); POLYS 47.7 %; RBC 4.33 mil/uL (4.20-5.00); RDW-CV 13.5 % (10.5-14.5); WBC 6.9 thou/uL (4.0-11.0)
[2018-10-08 07:27] LABS: HEMOGLOBIN 13.8 gm/dL (12.0-15.0)
[2018-10-08 07:31] LABS: CALCIUM 7.6 mg/dL (8.5-10.1); CREATININE 1.2 mg/dL (0.6-1.3)
[2018-10-08 08:00] VITALS: BP 107/72
[2018-10-08 12:00] VITALS: BP 94/37
[2018-10-08 13:08] LABS: AMP/METHAMP Negative (Negative); BARBITURATES Negative (Negative); BENZODIAZEPINES Negative (Negative); COCAINE Negative (Negative); METHADONE Negative (Negative); OPIATES Negative (Negative); PCP Negative (Negative); THC Negative (Negative)
[2018-10-08 20:00] VITALS: BP 109/72
[2018-10-08 22:36] LABS: AMP/METHAMP Negative (Negative); BARBITURATES Negative (Negative); BENZODIAZEPINES Negative (Negative); COCAINE Negative (Negative); METHADONE Negative (Negative); OPIATES Negative (Negative); PCP Negative (Negative); THC Negative (Negative)
[2018-10-09] VITALS: BP 105/75
[2018-10-09 04:00] VITALS: BP 112/73
[2018-10-09 05:32] LABS: ABSOLUTE EOSINOPHILS 0.2 thou/uL (0.0-0.7); ABSOLUTE LYMPHOCYTES 1.9 thou/uL (0.8-5.3); ABSOLUTE MONOCYTES 0.3 thou/uL (0.0-1.2); ABSOLUTE NEUTROPHILS 2.3 thou/uL (1.6-8.1); BASOPHILS 0.3 %; EOSINOPHILS 4.6 %; HEMATOCRIT 41.1 % (37.0-47.0); HEMOGLOBIN 13.7 gm/dL (12.0-15.0); LYMPHOCYTES 40.6 %; MCH 32.1 pg (26.0-34.0); MCHC 33.3 g/dL (28.0-37.0); MCV 96.6 fL (80.0-100.0); MONOCYTES 5.7 %; MPV 8.9 fl. (7.2-11.1); NUCLEATED RBCS 0 /100WBC; PLATELET COUNT* 143 thou/uL (150-400); POLYS 48.8 %; RBC 4.26 mil/uL (4.20-5.00); RDW-CV 13.3 % (10.5-14.5); WBC 4.7 thou/uL (4.0-11.0)
[2018-10-09 05:42] LABS: ALBUMIN 2.5 g/dL (3.4-5.0); CREATININE 1.2 mg/dL (0.6-1.3); POTASSIUM 4.1 mmol/L (3.5-5.1); TOTAL BILIRUBIN 0.3 mg/dL (<0.1-1.0); TOTAL PROTEIN 5.6 g/dL (6.4-8.2)
[2018-10-09 09:00] VITALS: BP 110/69
[2018-10-09 12:26] VITALS: BP 109/62
[2018-10-09 16:00] VITALS: BP 111/65
[2018-10-09 20:00] VITALS: BP 106/71
[2018-10-10] VITALS: BP 139/70
[2018-10-10 05:13] LABS: ABSOLUTE EOSINOPHILS 0.3 thou/uL (0.0-0.7); ABSOLUTE LYMPHOCYTES 1.9 thou/uL (0.8-5.3); ABSOLUTE MONOCYTES 0.3 thou/uL (0.0-1.2); ABSOLUTE NEUTROPHILS 2.6 thou/uL (1.6-8.1); BASOPHILS 0.6 %; EOSINOPHILS 5.9 %; HEMATOCRIT 42.3 % (37.0-47.0); HEMOGLOBIN 14.1 gm/dL (12.0-15.0); LYMPHOCYTES 36.9 %; MCH 32.1 pg (26.0-34.0); MCHC 33.4 g/dL (28.0-37.0); MCV 96.1 fL (80.0-100.0); MONOCYTES 5.8 %; NUCLEATED RBCS 0 /100WBC; PLATELET COUNT* 146 thou/uL (150-400); POLYS 50.8 %; RDW-CV 13.4 % (10.5-14.5)
[2018-10-10 05:46] LABS: CALCIUM 8.1 mg/dL (8.5-10.1); CREATININE 1.1 mg/dL (0.6-1.3); POTASSIUM 4.7 mmol/L (3.5-5.1)
[2018-10-10 08:59] VITALS: BP 139/70
[2018-10-10] MEDS ORDERED: CARAFATE 11 GM/10 M1 PO (09:05)
[2018-10-10 09:27] VITALS: BP 139/70
[2018-10-10 09:29] VITALS: BP 148/108
--- NOTE | 2018-10-15 09:57 | CON ---
[address] [address] CONSULTATION Name: DOROTEO BHAKTA Room: [address] IN M.R.#: [id number] Admission: 10/07/18 Attend Phys: Salbador Mckeon MD Discharge: 10/10/18 Date of : 76 Report #: [id number] THIS REPORT FOR: //name// CC: Salbador Leary DO DATE OF SERVICE: 10/08/2018 REFERRING PHYSICIAN: Salbador Mckeon MD REASON FOR CONSULTATION: Recurrent nausea and vomiting. IMPRESSION: 1. Epigastric pain associated with recurrent nausea, vomiting with known history of idiopathic gastroparesis -- suspect problems related to the same. 2. History of gastric bypass. 3. Morbid obesity in the past. 4. Chronic constipation for which the patient is on chronic Linzess for the same. 5. Dehydration secondary to #1. 6. History of drug-seeking behavior in the past. RECOMMENDATIONS: 1. At the present time, because of her history of problem with recurrent nausea, vomiting, I will reintroduce erythromycin at 250 mg q.i.d. a.c. and at bedtime. 2. Continue on Protonix at this time. 3. Because of her nausea, vomiting, hematemesis and recent history of melena, we will proceed with upper endoscopy tomorrow. 4. Consideration for domperidone may be an order since she cannot tolerate REGLAN secondary to jitteriness and anxiety. This has been discussed with the patient in the past and for whatever reason has never been attempted. 5. I agree with not advancing the patient's pain medications as this is not only going to cause issues with her gastroparesis, but also is unnecessary. Narcotics are definitely not indicated for this problem. We will make further recommendations during the hospital course. HISTORY OF PRESENT ILLNESS: The patient is a 37-year-old white female, well known to us, who has problems with chronic recurrent nausea, vomiting and has underlying gastroparesis. She has been hospitalized twice and now for the third time since the mid July with these complaints of nausea, vomiting. She was last seen by my partner, Dr. Weeks, on 09/28 for these complaints and thought that she may need to have a drug holiday for erythromycin. Ever since she stopped taking erythromycin, she has had problem with keeping [place] [address] CONSULTATION Name: DOROTEO BHAKTA Room: [address]#: [id number] Admission: 10/07/18 Attend Phys: Salbador Mckeon MD Discharge: 10/10/18 Date of : 76 Report #: [id number] has only been on liquids and Jell-O at this time. She had some scant hematemesis and during last hospital stay prior to admission, she had had some melena. Her hemoglobin at that time was 16, but she was dehydrated and in renal failure. She knows not to take any nonsteroidals, she has not been taking any of the same. She states that her whole abdomen hurts. She has been maintained on chronic Linzess to keep her bowels moving. She states that when she is off the erythromycin, she feels everything goes through her fairly quickly, but when she is on it, she does better. She is admitted to the hospital for further evaluation and treatment. ALLERGIES: NONSTEROIDAL, SCOPOLAMINE, TAPE, PSEUDOEPHEDRINE and REGLAN. That needs to be added. MEDICATIONS: At home include pantoprazole, gabapentin, BuSpar, Lamictal, Synthroid, Trintellix calcitriol, Requip, potassium, Coreg, vitamin with iron, Gentle Iron. Linzess, fluticasone, vitamin B12, Vraylar, Trokendi XR, Compro, nystatin cream, furosemide 40 mg daily, promethazine p.r.n., metformin, albuterol nebs as well as inhalers, zolpidem, erythromycin, ondansetron and Norvasc. PAST MEDICAL HISTORY: Significant for morbid obesity for which the patient underwent laparoscopic band surgery in 2005 with revision in 2007 and eventually removal of lap band and gastric bypass in 2011. She has underlying hypertension, bipolar disorder, posttraumatic stress disorder, history of Lyme disease, thyroid cancer, gastroparesis, chronic kidney disease, polycystic ovarian disease. 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 She had previous , thyroidectomy, cholecystectomy. SOCIAL HISTORY: The patient does smoke, does not drink alcohol, does not do any drugs. FAMILY HISTORY: Negative. PHYSICAL EXAMINATION: GENERAL: Revealed a 37-year-old white female who does not appear in any distress. CARDIOPULMONARY: Revealed a regular rate and rhythm. LUNGS: Clear. ABDOMEN: Soft, diffusely tender. No rebound or guarding noted. LABORATORY DATA: Laboratory tests from admission revealed a white count of 8.4, her hemoglobin 16.0, platelet count 173, MCV is 95.8 and RDW 13.6. Her differential is normal. With hydration, her hemoglobin has come down to 13.8 as of today. Her complete metabolic panel on admission revealed sodium 143, potassium 3.4, chloride 105, bicarbonate is 28, BUN 17, creatinine 1.5 for GFR of 39. Today, her potassium is better at 4.0 and her BUN and creatinine are 10 [facility] [address] [place] [address] CONSULTATION Name: DOROTEO BHAKTA Room: [address] IN M.R.#: [id number] Admission: 10/07/18 Attend Phys: Salbador Mckeon MD Discharge: 10/10/18 Date of : 76 Report #: [id number] and 1.2 respectively for GFR of 50. Total bilirubin 0.2, alkaline phosphatase 122, AST 13, ALT 21. Her albumin is 3.4 and her lipase is low at 62. CT scan of the abdomen and pelvis was obtained with IV contrast only. She has evidence for previous cholecystectomy without evidence for biliary ductal dilation. Her spleen, pancreas, adrenals, kidneys, ureters, bowel all appeared normal except for postsurgical change compatible with previous gastric bypass with a Basilia-en-Y surgical intervention. There is no free fluid. There is no evidence for anything to suggest bowel obstruction. DISCUSSION: At the present time, the patient has had recurrent nausea and vomiting, which is likely related to her gastroparesis. We will resume her erythromycin at this point in time and proceed with endoscopic evaluation of her upper GI tract. I have discussed these plans with the patient as well and she is agreeable to the same. <ELECTRONICALLY SIGNED> By: Young Carrera DO 10/15/18 0957 1513 DO alicia Jean
== END 2018-10-10 09:33 | disposition home or self-care (01) | DRG 378 ==
LOC: M.ERS 06:32 → M.TBA-ER 08:51 → M.2W 15:47 → M.ORTHSURG 10-10 07:07
PROVIDERS: Family Medicine; Internal Medicine Gastroenterology; ADMIT Internal Medicine
PROC: 0DJ08ZZ Inspection of Upper Intestinal Tract, Via Natural or Artificial Opening Endoscopic (ICD-10-PCS; principal; 2018-10-09)
DX: K28.0 Acute gastrojejunal ulcer with hemorrhage (principal); D62 Acute posthemorrhagic anemia; Z68.42 Body mass index [BMI] 45.0-49.9, adult; I13.0 Hypertensive heart and chronic kidney disease with heart failure and stage 1 through stage 4 chronic kidney disease, or unspecified chronic kidney disease; N17.9 Acute kidney failure, unspecified; K92.0 Hematemesis; E89.0 Postprocedural hypothyroidism; F31.9 Bipolar disorder, unspecified; F41.9 Anxiety disorder, unspecified; E28.2 Polycystic ovarian syndrome; I50.9 Heart failure, unspecified; E66.01 Morbid (severe) obesity due to excess calories; K59.09 Other constipation; E11.22 Type 2 diabetes mellitus with diabetic chronic kidney disease; E86.0 Dehydration; M47.9 Spondylosis, unspecified; F17.210 Nicotine dependence, cigarettes, uncomplicated; G40.909 Epilepsy, unspecified, not intractable, without status epilepticus; E11.43 Type 2 diabetes mellitus with diabetic autonomic (poly)neuropathy; G89.4 Chronic pain syndrome; N18.3 Chronic kidney disease, stage 3 (moderate); M54.9 Dorsalgia, unspecified; Z98.84 Bariatric surgery status; Z90.49 Acquired absence of other specified parts of digestive tract; Z85.850 Personal history of malignant neoplasm of thyroid; Z88.8 Allergy status to other drugs, medicaments and biological substances; Z82.49 Family history of ischemic heart disease and other diseases of the circulatory system; Z79.899 Other long term (current) drug therapy; K31.84 Gastroparesis

== ENCOUNTER 2018-11-20 08:48 | Emergency (ER) | payer OTHER, MEDICAID ==
[~2018-11-20] VITALS: Ht 167.6 cm; Wt 126.5 kg
[~2018-11-20 08:48] MED LIST changes: +CARAFATE 11 GM/10 M1 PO; +PREDNISONE 5 MG5 M1 PO; +PROMS25 WY RECTAL; +PROTONIX40 M1 PO; +ZOFRAN ODT4 MG DISSOLVE
[2018-11-20] MEDS ORDERED: PRENATAL PLUS1 EAC5 PO (09:15)
[2018-11-20] MEDS ORDERED: KLOR-CON 1010 MEQ PO (09:16)
[2018-11-20] MEDS ORDERED: SYNTHROID150 MCG PO (09:16)
[2018-11-20] MEDS ORDERED: TOPAMAX 25 MG T25 M1 PO (09:16)
[2018-11-20] MEDS ORDERED: VISTARIL 25 MG25 M1 PO (09:17)
[2018-11-20] MEDS ORDERED: METHOCARBAMOL750 MG PO (09:17)
[2018-11-20] MEDS ORDERED: DOXYCYCLINE HY100 MG PO (09:18)
[2018-11-20 09:27] LABS: ABSOLUTE EOSINOPHILS 0.3 thou/uL (0.0-0.7); ABSOLUTE MONOCYTES 0.4 thou/uL (0.0-1.2); ABSOLUTE NEUTROPHILS 3.3 thou/uL (1.6-8.1); BASOPHILS 0.8 %; EOSINOPHILS 5.2 %; HEMATOCRIT 45.7 % (37.0-47.0); HEMOGLOBIN 15.4 gm/dL (12.0-15.0); LYMPHOCYTES 33.4 %; MCH 32.3 pg (26.0-34.0); MCHC 33.7 g/dL (28.0-37.0); MONOCYTES 6.5 %; MPV 8.9 fl. (7.2-11.1); NUCLEATED RBCS 0 /100WBC; PLATELET COUNT* 189 thou/uL (150-400); POLYS 54.1 %; RBC 4.76 mil/uL (4.20-5.00); RDW-CV 13.6 % (10.5-14.5); WBC 6.1 thou/uL (4.0-11.0)
[2018-11-20 09:41] LABS: ALBUMIN 3.1 g/dL (3.4-5.0); CALCIUM 8.5 mg/dL (8.5-10.1); CREATININE 1.4 mg/dL (0.6-1.3); TOTAL BILIRUBIN 0.6 mg/dL (<0.1-1.0); TOTAL PROTEIN 6.5 g/dL (6.4-8.2)
[2018-11-20] MEDS ORDERED: NORCO 5-325 TA1 EACH PO (12:08)
[2018-11-20] MEDS ORDERED: KEFLEX500 M1 PO (12:08)
[2018-11-20 12:13] VITALS: BP 110/53
== END 2018-11-20 12:13 | disposition home or self-care (01) ==
LOC: M.ERS 08:48
PROVIDERS: Personal Emergency Response Attendant
DX: L03.311 Cellulitis of abdominal wall (principal); E89.0 Postprocedural hypothyroidism; F31.9 Bipolar disorder, unspecified; F41.9 Anxiety disorder, unspecified; K31.84 Gastroparesis; I13.0 Hypertensive heart and chronic kidney disease with heart failure and stage 1 through stage 4 chronic kidney disease, or unspecified chronic kidney disease; N18.3 Chronic kidney disease, stage 3 (moderate); I50.9 Heart failure, unspecified; F17.210 Nicotine dependence, cigarettes, uncomplicated; Z88.6 Allergy status to analgesic agent; Z85.850 Personal history of malignant neoplasm of thyroid; Z88.8 Allergy status to other drugs, medicaments and biological substances; Z98.890 Other specified postprocedural states; Z90.49 Acquired absence of other specified parts of digestive tract

== ENCOUNTER 2018-11-27 18:53 | Inpatient (IN) | payer OTHER, MEDICAID ==
[~2018-11-27] VITALS: Ht 167.6 cm; Wt 119.5 kg
[~2018-11-27 18:53] MED LIST changes: +DOXYCYCLINE HY100 MG PO; +KLOR-CON 1010 MEQ PO; +METHOCARBAMOL750 MG PO; +REQUIP 1 MG TABL1 M1 PO; -REQUIP1 MG PO; +SYNTHROID150 MCG PO; +TOPAMAX 25 MG T25 M1 PO
[2018-11-27 19:09] VITALS: BP 143/93
[2018-11-27 19:39] LABS: URINE BILIRUBIN NEGATIVE (Negative); URINE BLOOD NEGATIVE (Negative); URINE CLARITY CLEAR; URINE COLOR YELLOW; URINE GLUCOSE-RANDOM NEGATIVE (Negative); URINE KETONES TRACE (Negative); URINE LEUKOCYTES-REFLEX NEGATIVE (Negative); URINE NITRITE-REFLEX NEGATIVE (Negative); URINE PROTEIN NEGATIVE (Negative); URINE SPECIFIC GRAVITY 1.025 (1.005-1.030); URINE UROBILINOGEN 0.2 E.U./dl (0.2-1.0)
[2018-11-27 20:54] LABS: ALBUMIN 3.2 g/dL (3.4-5.0); CALCIUM 8.1 mg/dL (8.5-10.1); CREATININE 1.3 mg/dL (0.6-1.3); POTASSIUM 4.8 mmol/L (3.5-5.1); TOTAL BILIRUBIN 0.5 mg/dL (<0.1-1.0); TOTAL PROTEIN 6.5 g/dL (6.4-8.2)
[2018-11-27 20:57] LABS: ABSOLUTE EOSINOPHILS 0.3 thou/uL (0.0-0.7); ABSOLUTE LYMPHOCYTES 2.6 thou/uL (0.8-5.3); ABSOLUTE MONOCYTES 0.5 thou/uL (0.0-1.2); ABSOLUTE NEUTROPHILS 3.2 thou/uL (1.6-8.1); BASOPHILS 0.7 %; EOSINOPHILS 4.9 %; HEMATOCRIT 41.9 % (37.0-47.0); LYMPHOCYTES 38.7 %; MCH 32.1 pg (26.0-34.0); MCHC 33.4 g/dL (28.0-37.0); MCV 96.1 fL (80.0-100.0); MONOCYTES 6.9 %; MPV 8.6 fl. (7.2-11.1); NUCLEATED RBCS 0 /100WBC; PLATELET COUNT* 173 thou/uL (150-400); POLYS 48.8 %; RBC 4.37 mil/uL (4.20-5.00); RDW-CV 13.1 % (10.5-14.5); WBC 6.6 thou/uL (4.0-11.0)
--- NOTE | 2018-11-27 21:37 | NUR ---
PT UPDATED ON POC. WARM BLANKET PROVIDED
--- NOTE | 2018-11-28 01:27 | NUR ---
RESPIRATORY AT BEDSIDE
[2018-11-28 03:32] VITALS: BP 101/62
--- NOTE | 2018-11-28 07:01 | NUR ---
PT TO FLOOR APPOX 0400. SEE MAR. SEE CHARTING. FALL PRECAUTIONS IN PLACE. HOURLY ROUNDING FOR SAFETY.
[2018-11-28 08:00] VITALS: BP 93/54
--- NOTE | 2018-11-28 10:24 | NUR ---
ASSUMED CARE OF PT THIS AM AROUND 714- MS STATUS IN PLACE AND MAINTAINED INDICATED- UPON ASSESSMENT PT NOTED TO BE RESTING IN BED, EYES CLOSED- PT ARROUSABLE AND A&O X4- CONTINENT OF BOWEL AND BLADDER- AX1 WITH TRANSFERS- COURSE LUNG SOUNDS, WITH NON-PRODUCTIVE COUGH NOTED- RESP EVEN AND UN-LABORED- VSS, O2 SAT 100% ON 2L VIA NC-ABD SOFT/ROUND/NON-TENDER, BS X4 QUADS-LAST BM REPORTED 11-27-18- IV NOTED TO RUE INTACT, IVF INFUSSING PRESCIBED- REDNESS NOTED TO YI PANNUS FOLDS- ID HERE TO ASSESS WITH ORDERS NOTED- REFUSED BREAKFAST THIS AM- REPORTS PAIN 9/10 TO ABD, PRN MORPHINE GIVEN THIS AM AT 0931- PT REPORTS MEDICATION TO BE PARTIALLY EFFECTIVE- SEIZURE PRECAUTIONS IN PLACE- CALL LIGHT AND PERSONAL BELONGINGS WITH IN REACH- HOURLY ROUNDS INPLACE R/T SAFETY/NEEDS- ALL NEEDS MET AT THIS TIME-WCTM
[2018-11-28 11:17] VITALS: BP 115/77
[2018-11-28 11:41] VITALS: BP 108/48
--- NOTE | 2018-11-28 12:00 | NUR ---
MET WITH PT TO DISCUSS HOME SITUATION/DC PLANNING. PT LIVES WITH HER 9Y/O DTR. HER MOTHER LIVES CLOSEBY AND IS WATCHING DTR AT THIS TIME. PT IS NORMALLY INDEPENDENT AND ACTIVE, USES NO EQUIPMENT. HAS HAD HH WITH [facility] AND DONE HOME IV ABX IN PAST. PT PLANS TO RETURN HOME AT DC. WILL FOLLOW
[2018-11-28 16:00] VITALS: BP 100/69
--- NOTE | 2018-11-28 17:09 | NUR ---
PT DESIRETY RESTING IN BED- MS STATUS IN PLACE AND MAINTAINED INDICATED- IV TO RUE INTACT AND SL- IVF D/C'D THIS SHIFT- POOR PO INTAKE NOTED THIS SHIFT WITH MEALS- VANC GIVEN PRESCIBED THIS SHIFT- VIT D 2OOO UNITS STARTED WITH FIRST DOSE GIVEN- PRN HYDROCODONE X1 THIS SHIFT AT 1241,PT REPORTS PARTIAL RELIEF- WORKING WITH THERAPIES PRESCIBED- CALL LIGHT AND PERSONAL BELONGINGS WITH IN REACH- PT MAKES NEEDS KNOWN- ALL NEEDS MET AT THIS TIME-WCTM
[2018-11-28 19:40] VITALS: BP 106/60
[2018-11-29] VITALS: BP 104/57
[2018-11-29 05:22] LABS: ABSOLUTE EOSINOPHILS 0.3 thou/uL (0.0-0.7); ABSOLUTE LYMPHOCYTES 1.8 thou/uL (0.8-5.3); ABSOLUTE MONOCYTES 0.2 thou/uL (0.0-1.2); ABSOLUTE NEUTROPHILS 2.2 thou/uL (1.6-8.1); BASOPHILS 0.6 %; EOSINOPHILS 5.6 %; HEMOGLOBIN 13.3 gm/dL (12.0-15.0); LYMPHOCYTES 39.3 %; MCH 31.6 pg (26.0-34.0); MCHC 33.2 g/dL (28.0-37.0); MONOCYTES 5.4 %; MPV 8.8 fl. (7.2-11.1); NUCLEATED RBCS 0 /100WBC; PLATELET COUNT* 150 thou/uL (150-400); POLYS 49.1 %; RDW-CV 13.1 % (10.5-14.5); WBC 4.5 thou/uL (4.0-11.0)
[2018-11-29 05:37] LABS: CALCIUM 7.5 mg/dL (8.5-10.1); CREATININE 1.2 mg/dL (0.6-1.3); MAGNESIUM 1.8 mg/dL (1.8-2.4); POTASSIUM 3.8 mmol/L (3.5-5.1)
--- NOTE | 2018-11-29 07:45 | NUR ---
VITALS WNL. SEE MAR. SEE CHARTING. FALL PRECAUTIONS IN PLACE. HOURLY ROUNDING FOR SAFETY.
--- NOTE | 2018-11-29 07:54 | CON ---
[address] [address] CONSULTATION Name: DOROTEO BHAKTA Room: [place] [address] ADM IN M.R.#: [id number] Admission: 11/27/18 Attend Phys: Claudine Vazquez Discharge: Date of : 76 Report #: [id number] THIS REPORT FOR: //name// CC: Babar Henry DATE OF SERVICE: 11/28/2018 INFECTIOUS DISEASE CONSULTATION ATTENDING PHYSICIAN: Dr. Henry. REASON FOR EVALUATION: Panniculitis. HISTORY OF PRESENT ILLNESS: Chart reviewed, patient examined. This 38-year-old known to myself, has had fairly extensive medical history given her age. She is obese. She has had several surgeries including gastric bypass surgery, she has had lap band surgery and revision, again this has been over the course since 2007, does have additional chronic pain syndromes as well, who developed inflammatory eruption over the pannus, particularly in the right lower quadrant. Denies any antecedent injury. There were associated low-grade temperature elevations. She was actually hospitalized apparently in latter part of October with similar and she had to leave due to family emergency, received some therapy and was switched to oral antibiotics. She noted to have not improved and her sense was it was worsening, admitted to some intermittent dyspnea. She is now requiring some supplemental oxygen, although she has not had cough. She has had anorexia with poor p.o. intake. Blood cultures collected at time of admission are sterile thus far, empirically started on antimicrobials including ceftriaxone, received a dose of vancomycin as well. She is mildly encephalopathic. ALLERGIES: LISTED TO SUDAFED, NONSTEROIDAL, SCOPOLAMINE. CURRENT MEDICATIONS: Include ceftriaxone, methocarbamol, lamotrigine, calcitriol, enoxaparin, multivitamin, hydroxyzine, levothyroxine, topiramate, pantoprazole, albuterol, metformin, linaclotide, carvedilol, amlodipine, buspirone, ropinirole, gabapentin, melatonin, ondansetron. PAST MEDICAL HISTORY: As described above. Significant for history of hypertension, bipolar, post-traumatic stress disorder, social anxiety, history of Lyme disease, thyroid cancer with hypothyroidism, gastroparesis, chronic pain syndrome, polycystic ovarian disease, cardiomyopathy with history of congestive heart failure, seizures. SOCIAL HISTORY: Smokes tobacco[place] [address] CONSULTATION Name: BHAKTADOROTEO DEMETRIUS Room: [address] IN [facility]#: [id number] Admission: 11/27/18 Attend Phys: Claudine Vazquez Discharge: Date of : 76 Report #: [id number] FAMILY HISTORY: Noncontributory. REVIEW OF SYSTEMS: Otherwise, unremarkable 10-point review of systems with the exception of the above. PHYSICAL EXAMINATION: GENERAL: She is lethargic. She does arouse. She seemed to remember me from 2 years prior. She is not completely oriented. She is in moderate distress. VITAL SIGNS: Temperature 98.2, pulse 65, respirations 18, blood pressure 101/62. SKIN: Warm, dry, no rashes. HEENT: Otherwise unremarkable. Normocephalic. Extraocular muscles intact. NECK: Supple. LUNGS: Diminished breath sounds. HEART: Regular. I do not appreciate any murmur. ABDOMEN: Obese. Does have a large pannus. She is lying in the left lateral decubitus position. She crosses the midline. She has got a fairly moderately inflamed, almost Peau d'orange right-sided superficial ulceration here as well. This is around the periumbilical area. I do not appreciate any fluctuance. It is quite tender. GENITOURINARY: Deferred. RECTAL: Deferred. EXTREMITIES: No cyanosis. LABORATORY DATA: Blood cultures sterile thus far. Chest x-ray showed some scarring in the bases without evidence of pneumonia. Lactic acid 1.0. CT abdomen and pelvis showed worsening inflammatory change involving the large anterior abdominal pannus, extensive subcutaneous fat stranding and skin thickening. CBC: White count of 6.6, H and H 14.0 and 41.9, platelets of 173. Electrolytes: Sodium 140, potassium 4.8, chloride 107, bicarb is 123, anion gap of 10, BUN and creatinine 18 and 1.3, albumin 3.2, total protein 6.5. LFTs unremarkable. Urinalysis unremarkable. ASSESSMENT AND PLAN: Panniculitis, I presume infectious etiology. At this point, I agree with empiric antimicrobial therapy. We will continue with the vancomycin to give us gram-positive coverage. At this point, I do not think there is anything to culture per se. We will monitor expectantly. If develops localizing signs or symptoms to suggest subcutaneous fluid collection or abscess, we will certainly try to obtain some specimen. Continue symptomatic treatment. We will add incentive spirometry. Would be at risk for nosocomial-related infectious complications. <ELECTRONICALLY SIGNED> By: Jacoby Hernandez MD 11/29/18 0754 1010 [id number] Hernandez MD /nt
[2018-11-29 10:00] VITALS: BP 109/63
[2018-11-29 16:06] VITALS: BP 113/74
--- NOTE | 2018-11-29 16:20 | NUR ---
ASSUMED PT CARE AT 0700 PT IS ALERT AND ORIENTED X 4 PT C/O PAIN DENIES SOA ON RA, GAVE PT PAIN MEDS WHICH PT STATES HELPS, PT IS MEDICAL SURGICAL STATUS, PT C/O NAUSEA GAVE PT ZOFRAN WHICH PT STATES HELPS, PT IS TRANSFERING TO JOINT AND SPINE PT IS NOT ON ISOLATION PRECAUTIONS, GAVE REPORT TO NURSE WILL CONTINUE TO MONITOR
[2018-11-29 17:11] VITALS: BP 133/81
--- NOTE | 2018-11-29 17:12 | NUR ---
PT ARRIVED TO UNIT FROM TELE AT 1640. VITALS STABLE, CHARTED. AGREE WITH PREVIOUS ASSESSMENT. PT A&Ox4. MINOR HIP PAIN, NO PAIN MEDICATIONS REQUIRED AT THIS TIME. IV R FA PATENT, SL. UP STAND BY. CALL LIGHT WITHIN REACH. WILL CONTINUE TO MONITOR.
[2018-11-29 20:00] VITALS: BP 95/55
--- NOTE | 2018-11-30 05:01 | NUR ---
ASSUMED CARE OF PT AFTER REPORT AT 1930. PT A&OX4. VSS. PHYSICAL ASSESSMENT COMPLETED AND CHARTED. PT ON RA WITH 97% O2 SAT. PT COMPLAINED OF RIGHT RIB & LEFT HIP PAIN- PAIN MEDS GIVEN PER OCT. WOUND ON THE ABDOMEN NOTED. PHOTOGRAPH TAKEN. PT RESTED WELL ON BED. CALL LIGHT WITHIN REACH.
--- NOTE | 2018-11-30 06:56 | NUR ---
REPORT RECIEVED FROM DEBORA ENG ON ORTHO. PT MOVED TO ROOM 308, PT ORIENTED TO ROOM, CALL LIGHT SHOWN, SZ PRECAUTIONS IN PLACE.
[2018-11-30 08:00] VITALS: BP 122/69
[2018-11-30] MEDS ORDERED: DOXYCYCLINE 10100 MG PO (14:56)
[2018-11-30] MEDS ORDERED: VENTOLIN HFA 1818 GM INH (15:11)
[2018-11-30] MEDS ORDERED: AMBIEN 5 MG TABL5 M1 PO (15:13)
[2018-11-30 15:15] VITALS: BP 122/69
[2018-11-30] MEDS ORDERED: MINOCYCLINE HC100 MG PO (16:19)
[2018-11-30 16:20] VITALS: BP 122/69
[2018-11-30 16:35] VITALS: BP 122/69
--- NOTE | 2018-11-30 18:32 | NUR ---
PT IS ALERT AND ORIENTED X 4. IV PATENT. DENIES NAUSEA. RECEIVED PO MEDICATION IN AM FOR PAIN CONTROL. SEIZURE PRECAUTIONS IN PLACE. UP AD PAULETTE-SBA TO BR. PT GIVEN DISCHARGE INSTRUCTIONS. RECEIVED PRESCRIPTION FOR ANTIBIOTIC ORDERED PER DR. MOODY. PATIENT ABLE TO AMBULATE WITH PERSONAL BELONGINGS WITH NURSING STAFF TO LEAVE @ 1635 BY PRIVATE CAR.
== END 2018-11-30 16:35 | disposition home or self-care (01) | DRG 607 ==
LOC: M.ERS 18:53 → M.TBA-ER 22:47 → M.2W 22:47 → M.ORTHSURG 11-29 16:42 → M.3W 11-30 06:40
PROVIDERS: Emergency Medicine; Family Medicine; ADMIT Internal Medicine
DX: M79.3 Panniculitis, unspecified (principal); I50.32 Chronic diastolic (congestive) heart failure; I42.9 Cardiomyopathy, unspecified; I13.0 Hypertensive heart and chronic kidney disease with heart failure and stage 1 through stage 4 chronic kidney disease, or unspecified chronic kidney disease; F31.9 Bipolar disorder, unspecified; E28.2 Polycystic ovarian syndrome; F41.9 Anxiety disorder, unspecified; E03.9 Hypothyroidism, unspecified; G89.4 Chronic pain syndrome; M19.90 Unspecified osteoarthritis, unspecified site; G40.909 Epilepsy, unspecified, not intractable, without status epilepticus; N18.3 Chronic kidney disease, stage 3 (moderate); F17.210 Nicotine dependence, cigarettes, uncomplicated; F43.10 Post-traumatic stress disorder, unspecified; E83.51 Hypocalcemia; Z90.49 Acquired absence of other specified parts of digestive tract; Z85.850 Personal history of malignant neoplasm of thyroid; Z88.8 Allergy status to other drugs, medicaments and biological substances; Z82.49 Family history of ischemic heart disease and other diseases of the circulatory system; Z79.899 Other long term (current) drug therapy

== ENCOUNTER → 2018-12-09 | Outpatient (CLI) | payer OTHER, MEDICAID ==
[~2018-12-09] MED LIST changes: +MINOCYCLINE HC100 MG PO
[2018-12-09 10:16] VITALS: BP 114/79
--- NOTE | 2018-12-09 10:28 | NUR ---
RIGHT CEPHALIC VESSEL ACCESSED FOR 4 [place] ISLANDER SINGLE LUMEN PICC. LINE PRE-TRIMMED TO 47 CM AND ADVANCE TO THE ZERO AGUSTIN WITH NO RESISTANCE MET. UPPER ARM CIRCUMFERENCE ABOVE INSERTION SITE= 17". SHERLOCK MAGNET AND 3CG CONFIRMATION OF TIP TERMINATING AT THE CAVOATRIAL JUNCITON APPRECIATED. GUIDEWIRE REMOVED, LINE FLUSHED AND INSERTION SITE DRESSED. DOCUMENTATION PROVIDED ABOVE. VANCOMYCIN INFUSION FIRST DOSE BEGUN WITH NO DIFFICULTY.
[2018-12-09 12:02] VITALS: BP 126/86
--- NOTE | 2018-12-09 12:09 | NUR ---
PATIENT TOLERATED VANCOMYCIN INFUSION WELL. [facility] HERE FOR PRE-DISCHARGE EDUCATION AND EDUCATION FOR HOME INFUSION. PATIENT PICC LINE FUNCTIONING APPROPRIATELY. DISCHARGED WITH NO ADVERSE EFFECTS REPORTED.
== END ==
LOC: M.INFUS 05:03
DX: L03.311 Cellulitis of abdominal wall (principal)

== ENCOUNTER → 2019-01-12 | Outpatient (CLI) | payer OTHER, MEDICAID ==
[2019-01-12 12:20] VITALS: BP 131/81
== END ==
LOC: M.INFUS 12:00
DX: L03.311 Cellulitis of abdominal wall (principal); M79.3 Panniculitis, unspecified; I11.0 Hypertensive heart disease with heart failure; I50.9 Heart failure, unspecified; M19.90 Unspecified osteoarthritis, unspecified site; F17.210 Nicotine dependence, cigarettes, uncomplicated; F31.9 Bipolar disorder, unspecified; F41.9 Anxiety disorder, unspecified; E89.0 Postprocedural hypothyroidism; Z85.850 Personal history of malignant neoplasm of thyroid; Z87.01 Personal history of pneumonia (recurrent); Z90.49 Acquired absence of other specified parts of digestive tract

== ENCOUNTER 2019-01-28 07:37 | Emergency (ER) | payer OTHER, MEDICAID ==
[~2019-01-28] VITALS: Ht 167.6 cm; Wt 118.8 kg
[2019-01-28 10:21] VITALS: BP 111/75
== END 2019-01-28 10:23 | disposition home or self-care (01) ==
LOC: M.ERS 07:37
DX: T82.598A Other mechanical complication of other cardiac and vascular devices and implants, initial encounter (principal); F17.210 Nicotine dependence, cigarettes, uncomplicated; K31.84 Gastroparesis; E28.2 Polycystic ovarian syndrome; I50.9 Heart failure, unspecified; I12.9 Hypertensive chronic kidney disease with stage 1 through stage 4 chronic kidney disease, or unspecified chronic kidney disease; N18.3 Chronic kidney disease, stage 3 (moderate); F31.9 Bipolar disorder, unspecified; Z88.8 Allergy status to other drugs, medicaments and biological substances; Z91.048 Other nonmedicinal substance allergy status; Z98.890 Other specified postprocedural states; Z90.49 Acquired absence of other specified parts of digestive tract; Z85.850 Personal history of malignant neoplasm of thyroid

== ENCOUNTER → 2019-02-01 | Outpatient (CLI) | payer OTHER, MEDICAID ==
--- NOTE | 2019-02-01 14:17 | NUR ---
ARRIVED AMBULATORY. MADE SELF COMFORTABLE. RIGHT PICC LINE INTACT TO RIGHT UPPER ARM. LINE PLACEMENT DOCUMENTATION REVIEWED. DRESSING CHANGED. LINE NOTED TO NOW BE AT 1CM EXTERNAL ADN WAS PREVIOUS 0CM. PT REPORTS ABLE TO FLUSH BUT NO BLOOD RETURN FOR 2 WEEKS. LINE ASSESSED AND NOTED TO BE NOT PATENT. EASY FLUSH, NO BLOOD RETURN. SPOKE WITH DR. MOODY AND ORDER RECIEVED FOR CATHFLOW. CATHLOW INSTILLED. 30 IN CHECK STILL NO BLOOD RETURN, 1HOUR CHECK NO BLOOD RETURN, 2HOUR CHECK GOOD BRSIK BLOOD RETURN WITH EASY FLUSH. PATENCY WAS RESTORED TO LINE. FLUSHING INSTRUCTION REVIEWED WITH PT AND INFUSION CONTACT NUMBER GIVEN. NESSA GAGNON OR NEEDS AT DISCHARGE.
== END ==
LOC: M.INFUS 11:19
DX: Z45.2 Encounter for adjustment and management of vascular access device (principal); M79.3 Panniculitis, unspecified; I13.0 Hypertensive heart and chronic kidney disease with heart failure and stage 1 through stage 4 chronic kidney disease, or unspecified chronic kidney disease; N18.9 Chronic kidney disease, unspecified; I50.9 Heart failure, unspecified; F41.9 Anxiety disorder, unspecified; F31.9 Bipolar disorder, unspecified; M19.90 Unspecified osteoarthritis, unspecified site; Z90.49 Acquired absence of other specified parts of digestive tract; Z87.891 Personal history of nicotine dependence

== ENCOUNTER → 2019-02-08 | Outpatient (CLI) | payer OTHER, MEDICAID ==
--- NOTE | 2019-02-08 10:56 | NUR ---
ARRIVED AMBULAOTRY. MADE SELF COMFORTABLE IN RECLINER. PICC INTACT AND PATENT. PICC DRESSING AND CAP CHANGED. TOLERATED WELL.
== END ==
LOC: M.INFUS 05:16
DX: M79.3 Panniculitis, unspecified (principal); I13.0 Hypertensive heart and chronic kidney disease with heart failure and stage 1 through stage 4 chronic kidney disease, or unspecified chronic kidney disease; N18.9 Chronic kidney disease, unspecified; I50.9 Heart failure, unspecified; F41.9 Anxiety disorder, unspecified; F31.9 Bipolar disorder, unspecified; M19.90 Unspecified osteoarthritis, unspecified site; F17.210 Nicotine dependence, cigarettes, uncomplicated; E89.0 Postprocedural hypothyroidism; Z85.850 Personal history of malignant neoplasm of thyroid; Z87.01 Personal history of pneumonia (recurrent); Z90.49 Acquired absence of other specified parts of digestive tract

== ENCOUNTER → 2019-02-15 | Outpatient (CLI) | payer OTHER, MEDICAID ==
--- NOTE | 2019-02-15 09:30 | NUR ---
ARRIVED AMBULATORY. MADE SELF COMFORTABLE IN RECLINER. PICC INTACT AND PATENT WITH NO SIGN OF INFECTION NOTED. PICC DRESSING WAS LIFTING AT EDGES AND BIOPATCH NOTED TO HAVE MOISTURE. DRESSING STILL OCCLUSIVE PICC DRESSING CHANGED. PT REPORT RIGHT ABD PAIN POST STOPPING ATIBIOTIC. RIGHT SIDE OF ABD NOTED TO BE 2-3X SWOLLEN IN SIZE OF LEFT. PT REPORTS AREA WARM TO TOUCH AND INCREASING PAIN. PAGED DR MOODY AT 0915. RETURN CALL RECIEVED AT 0920. PT TO HAVE ATB THERAPY RESTARTED PER AMERITA. SARAH IN DR. MOODY'S OFFICE TO ARRANGE. PT TO BE SEEN AGAIN IN INFUSION LAB TO MONITIR PICC DRESSING. DR. MOODY TO BE PAGED TO SEE PT AT THAT TIME. PT VOICED UNDERSTAING AND AGREED TO PLAN OF CARE. DENEIS QUESTIONS OR NEEDS AT DISCHARGE.
== END ==
LOC: M.INFUS 05:04
DX: Z45.2 Encounter for adjustment and management of vascular access device (principal); M79.3 Panniculitis, unspecified; I13.0 Hypertensive heart and chronic kidney disease with heart failure and stage 1 through stage 4 chronic kidney disease, or unspecified chronic kidney disease; N18.9 Chronic kidney disease, unspecified; I50.9 Heart failure, unspecified; F41.9 Anxiety disorder, unspecified; F31.9 Bipolar disorder, unspecified; F17.210 Nicotine dependence, cigarettes, uncomplicated; M19.90 Unspecified osteoarthritis, unspecified site; Z90.49 Acquired absence of other specified parts of digestive tract

== ENCOUNTER → 2019-02-17 | Outpatient (CLI) | payer OTHER, MEDICAID ==
[2019-02-17 10:05] VITALS: BP 132/92
[2019-02-17 10:35] LABS: HEMATOCRIT 44.1 % (37.0-47.0); HEMOGLOBIN 14.7 gm/dL (12.0-15.0); MCH 31.4 pg (26.0-34.0); MCHC 33.5 g/dL (28.0-37.0); MCV 93.8 fL (80.0-100.0); MPV 10.1 fl. (7.2-11.1); RBC 4.7 mil/uL (4.20-5.00); RDW-CV 14.6 % (10.5-14.5); WBC 4.9 thou/uL (4.0-11.0)
[2019-02-17 11:04] LABS: ALBUMIN 3.3 g/dL (3.4-5.0); CALCIUM 8.6 mg/dL (8.5-10.1); CREATININE 1.4 mg/dL (0.6-1.3); POTASSIUM 4.2 mmol/L (3.5-5.1); TOTAL BILIRUBIN 0.7 mg/dL (<0.1-1.0); TOTAL PROTEIN 6.2 g/dL (6.4-8.2)
--- NOTE | 2019-02-17 12:21 | NUR ---
ARRIVED AMBULATORY. LABS DRAWN PER NEW STANDING ORDER. DR. MOODY IN CLINIC AND PT SEEN. NO NEW ORDER RECIEVED AT THIS TIME.
--- NOTE | 2019-02-20 07:29 | CON ---
[address] [address] CONSULTATION Name: DOROTEO BHAKTA Room: [facility].#: [id number] Admission: 02/17/19 Attend Phys: Jacoby Hernandez MD Discharge: Date of : 78 Report #: [id number] THIS REPORT FOR: //name// CC: Babar Hernandez DATE OF SERVICE: 02/17/2019 INFECTIOUS DISEASE CONSULTATION She is in the outpatient infusion area. HISTORY OF PRESENT ILLNESS: Chart reviewed, the patient examined. The patient returns in followup, ongoing issues with painful inflammatory rash involving her pannus, primarily on the right side. She had several episodes of this with marginal response to antibiotics, typically couple weeks' worth of parenteral. It is notable she has issues with malabsorption. Oral therapy seems less effective. She had called earlier in the week, said it had flared, so based on that, actually she has had some fevers, increased pain, swelling and redness as well as some open sites with draining sinuses at this point. She was reinitiated on therapy with daptomycin, which she had been on previously. She still has significant amount of pain and discomfort, although having started the antibiotics just within the last couple of days. PHYSICAL EXAMINATION: On evaluation, the site is moderately inflamed. It is quite tender and certainly, consistent with the cellulitic process. ASSESSMENT AND PLAN: Panniculitis. Had been arranged as an outpatient to see Dermatology, unfortunately that was unable to be scheduled until early next week. She is to keep that appointment, also is scheduled with appointment with Surgery latter in the week for possible panniculectomy. We will try to improve her situation to make her a surgical candidate. She was encouraged to not optimize her nutritional status as well. There is some undernourishment as a complication as well. We will check weekly labs. <ELECTRONICALLY SIGNED> By: Jacoby Hernandez MD 02/20/19 0729 1213 [id number] Hernandez MD /nt
== END ==
LOC: M.INFUS 00:50
PROVIDERS: Specialist
DX: M79.3 Panniculitis, unspecified (principal)

== ENCOUNTER → 2019-02-21 | Outpatient (CLI) | payer OTHER, MEDICAID ==
--- NOTE | 2019-02-21 13:21 | NUR ---
ARRIVED AMBULATORY. MADE SELF COMFORTABLE IN RECLINER. DR. MOODY HERE AND SEEN PT. PICC DRESSING CHANGED.
--- NOTE | 2019-02-22 12:49 | CON ---
[address] [address] CONSULTATION Name: DOROTEO BHAKTA [id number] Admission: 02/21/19 Attend Phys: Jacoby Hernandez MD Discharge: Date of : 76 Report #: [id number] THIS REPORT FOR: //name// CC: Babar Hernandez DATE OF SERVICE: 02/21/2019 INFECTIOUS DISEASE CONSULTATION HISTORY OF PRESENT ILLNESS: Here for followup PICC line dressing change. She has had chronic panniculitis, receiving currently daptomycin. She reports having been to the learning engineer earlier today. They did 2 biopsies. She said would require perhaps several days for results. She notes the site of the pannus on the right side is slightly better. There is still moderate degree of pain extends to the back, redness has faded to some degree. She generally feels poorly. ASSESSMENT AND PLAN: Panniculitis. I suspect infection at times plays a role, but I think there is an underlying issue there. Ideally, the biopsy will help clarify, be in touch with the learning engineer, will extend the daptomycin 1 additional week with the weekly labs. We will see her next week, hopefully with additional information. She is scheduled to see General Surgery for possible panniculectomy. <ELECTRONICALLY SIGNED> By: Jacoby Hernandez MD 02/22/19 1249 1154 [id number] Hernandez MD /sameer
== END ==
LOC: M.INFUS 11:09
DX: Z45.2 Encounter for adjustment and management of vascular access device (principal); M79.3 Panniculitis, unspecified; I13.0 Hypertensive heart and chronic kidney disease with heart failure and stage 1 through stage 4 chronic kidney disease, or unspecified chronic kidney disease; N18.9 Chronic kidney disease, unspecified; I50.9 Heart failure, unspecified; F41.9 Anxiety disorder, unspecified; F31.9 Bipolar disorder, unspecified; M19.90 Unspecified osteoarthritis, unspecified site; F17.210 Nicotine dependence, cigarettes, uncomplicated; Z85.850 Personal history of malignant neoplasm of thyroid; Z87.01 Personal history of pneumonia (recurrent); Z90.49 Acquired absence of other specified parts of digestive tract

== ENCOUNTER → 2019-02-28 | Outpatient (CLI) | payer OTHER, MEDICAID ==
[2019-02-28 09:15] VITALS: BP 128/78
[2019-02-28 09:48] LABS: ABSOLUTE EOSINOPHILS 0.2 thou/uL (0.0-0.7); ABSOLUTE LYMPHOCYTES 1.3 thou/uL (0.8-5.3); ABSOLUTE MONOCYTES 0.4 thou/uL (0.0-1.2); ABSOLUTE NEUTROPHILS 2.5 thou/uL (1.6-8.1); BASOPHILS 0.5 %; EOSINOPHILS 3.7 %; HEMATOCRIT 42.9 % (37.0-47.0); HEMOGLOBIN 14.1 gm/dL (12.0-15.0); LYMPHOCYTES 29.9 %; MCHC 32.9 g/dL (28.0-37.0); MCV 94.1 fL (80.0-100.0); MONOCYTES 9.5 %; MPV 9.2 fl. (7.2-11.1); NUCLEATED RBCS 0 /100WBC; PLATELET COUNT* 137 thou/uL (150-400); POLYS 56.4 %; RBC 4.56 mil/uL (4.20-5.00); RDW-CV 14.4 % (10.5-14.5); WBC 4.5 thou/uL (4.0-11.0)
[2019-02-28 10:00] LABS: ALBUMIN 3.1 g/dL (3.4-5.0); CALCIUM 8.9 mg/dL (8.5-10.1); CREATININE 1.4 mg/dL (0.6-1.3); POTASSIUM 3.8 mmol/L (3.5-5.1); TOTAL BILIRUBIN 0.5 mg/dL (<0.1-1.0); TOTAL PROTEIN 6.1 g/dL (6.4-8.2)
--- NOTE | 2019-03-01 12:16 | CON ---
[address] [address] CONSULTATION Name: DOROTEO BHAKTA Room: [facility] [place].#: [id number] Admission: 02/28/19 Attend Phys: Jacoby Hernandez MD Discharge: Date of : 76 Report #: [id number] THIS REPORT FOR: //name// CC: Babar Hernandez DATE OF SERVICE: 02/28/2019 INFECTIOUS DISEASE CONSULTATION LOCATION: The patient is seen in the outpatient infusion area at [facility]. HISTORY OF PRESENT ILLNESS: The patient returns today in followup for evaluation of ongoing moderate to severe panniculitis. In the interim since last visit, she has been on daptomycin, daily basis. Overall, she feels slightly better. Her fevers are down. She has somewhat less pain associated with the primary right side of the pannus. She had been seen by Dermatology. Biopsies were taken. She called the office, still waiting on results. She is scheduled to see a surgeon for possible panniculectomy and this is to happen later this week. She is concerned about her white count being slightly lower at 4.5. She did look at the trend. She is normally in the mid 7s. On examination, actually, the pannus looks to be a little bit less inflamed, still mildly tender, indurated on the right side. ASSESSMENT AND PLAN: Panniculitis. At this point, we would hold the antibiotics, specifically daptomycin. She is to keep followup appointments, should be notified of the biopsy results. We will maintain the PICC line for now. We will see her as needed. <ELECTRONICALLY SIGNED> By: Jacoby Hernandez MD 03/01/19 1216 1016 [id number] Hernandez MD /nt
== END ==
LOC: M.INFUS 09:15
PROVIDERS: Specialist
DX: M79.3 Panniculitis, unspecified (principal); I13.0 Hypertensive heart and chronic kidney disease with heart failure and stage 1 through stage 4 chronic kidney disease, or unspecified chronic kidney disease; N18.9 Chronic kidney disease, unspecified; I50.9 Heart failure, unspecified; M19.90 Unspecified osteoarthritis, unspecified site; F41.9 Anxiety disorder, unspecified; F31.9 Bipolar disorder, unspecified; F17.210 Nicotine dependence, cigarettes, uncomplicated; Z87.01 Personal history of pneumonia (recurrent); Z90.49 Acquired absence of other specified parts of digestive tract; Z85.850 Personal history of malignant neoplasm of thyroid

== ENCOUNTER → 2019-03-14 | Outpatient (CLI) | payer OTHER, MEDICAID ==
--- NOTE | 2019-03-14 09:11 | NUR ---
ARRIVED AMBULATORY. MADE SELF COMFORTABLE IN RECLINER. SINGLE LUMAN POWER PICC INTACT TO RIGHT UPPER ARM. DRESSING C/D/I AND OCCLUSIVE. DRESSING REMOVED. NO SIGN OF INECTION NOTED TO INSERTION SITE. VEW DRESSING APPLIED. TOLERATED WELL. PICC CHECKED FOR PATENT. GOOD BRISK BLOOD RETURN WITH ASPERATION. LINE FLUSHED WITH EASE. LINE FLUSED WITH NACL PRIOR TO DISCHARGE. PT REPORTS STILL WAITING FOR BIOPSY RESULTS TO DETERMINE CURRENT CORSE OF FURTHER TX.
== END ==
LOC: M.INFUS 05:14
DX: Z45.2 Encounter for adjustment and management of vascular access device (principal); M79.3 Panniculitis, unspecified

== ENCOUNTER 2019-03-20 11:26 | Observation (INO) | payer OTHER, MEDICAID ==
[~2019-03-20] VITALS: Ht 152.4 cm; Wt 112.0 kg
[2019-03-20 11:29] VITALS: BP 122/81
[2019-03-20 12:04] LABS: ABSOLUTE EOSINOPHILS 0.2 thou/uL (0.0-0.7); ABSOLUTE LYMPHOCYTES 1.4 thou/uL (0.8-5.3); ABSOLUTE MONOCYTES 0.4 thou/uL (0.0-1.2); BASOPHILS 0.6 %; EOSINOPHILS 3.4 %; HEMATOCRIT 44.4 % (37.0-47.0); HEMOGLOBIN 14.6 gm/dL (12.0-15.0); LYMPHOCYTES 28.1 %; MCH 30.8 pg (26.0-34.0); MCHC 32.9 g/dL (28.0-37.0); MCV 93.4 fL (80.0-100.0); MONOCYTES 7.7 %; MPV 9.2 fl. (7.2-11.1); NUCLEATED RBCS 0 /100WBC; PLATELET COUNT* 151 thou/uL (150-400); POLYS 60.2 %; RBC 4.76 mil/uL (4.20-5.00); RDW-CV 14.6 % (10.5-14.5); WBC 4.9 thou/uL (4.0-11.0)
[2019-03-20 12:13] LABS: ANION GAP 11 mmol/L (7-16); BUN 13 mg/dL (7-18); CALCIUM 8.8 mg/dL (8.5-10.1); CHLORIDE 106 mmol/L (98-107); CO2 25 mmol/L (21-32); CREATININE 1.1 mg/dL (0.6-1.3); GLUCOSE 93 mg/dL (70-99); POTASSIUM 3.8 mmol/L (3.5-5.1); SODIUM 142 mmol/L (136-145)
[2019-03-20 12:24] LABS: ALBUMIN 3.1 g/dL (3.4-5.0); ALKALINE PHOSPHATASE 69 U/L (46-116); LIPASE 51 U/L (73-393); MAGNESIUM 1.7 mg/dL (1.8-2.4); NT-PRO BRAIN NAT PEPTIDE 2130 pg/mL (<300); SGOT 12 U/L (15-37); SGPT 16 U/L (30-65); TOTAL BILIRUBIN 0.8 mg/dL (<0.1-1.0); TOTAL PROTEIN 6.1 g/dL (6.4-8.2); TROPONIN-I LEVEL <0.06 ng/mL (<0.06)
[2019-03-20 13:44] VITALS: BP 126/85
[2019-03-20 14:11] VITALS: BP 128/77
--- NOTE | 2019-03-20 15:50 | EKG ---
[place] [address] ELECTROCARDIOGRAM REPORT Name: DOROTEO BHAKTA Room: [address] ADM IN .R.#: [id number] Admission: 03/20/19 Attend Phys: Salbador Mckeon MD Discharge: Date of : 76 Report #: [id number] THIS REPORT FOR: //name// [facility] ED Test Date: 2019-03-20 Test Time: 11:31:19 Pat Name: DOROTEO BHAKTA Department: Room: [facility] Gender: F Punch Hand: : 1980 Requested By: Rian Osborn Order Number: [id number] MD: Triston Caruso Measurements Intervals [place] Rate: 51 P: 60 AL: 147 QRS: 51 QRSD: 101 T: 29 QT: 435 QTc: 401 Interpretive Statements Sinus bradycardia Low voltage, precordial leads Compared to ECG 10/07/2018 07:41:19 No significant changes Electronically Signed On 03-20-2019 15:50:29 CDT by Triston Caruso [email or web address] <ELECTRONICALLY SIGNED> By: Triston Caruso MD, [facility] 03/20/19 1550 1131 1131 Triston Caruso MD, [facility] /EPI
[2019-03-20 18:19] LABS: URINE BILIRUBIN NEGATIVE (Negative); URINE BLOOD NEGATIVE (Negative); URINE CLARITY CLEAR; URINE COLOR YELLOW; URINE GLUCOSE-RANDOM NEGATIVE (Negative); URINE KETONES NEGATIVE (Negative); URINE LEUKOCYTES-REFLEX NEGATIVE (Negative); URINE NITRITE-REFLEX NEGATIVE (Negative); URINE PROTEIN NEGATIVE (Negative); URINE SPECIFIC GRAVITY <= 1.005 (1.005-1.030); URINE UROBILINOGEN 0.2 E.U./dl (0.2-1.0)
[2019-03-20 18:32] LABS: AMP/METHAMP Negative (Negative); BARBITURATES Negative (Negative); BENZODIAZEPINES Negative (Negative); COCAINE Negative (Negative); METHADONE Negative (Negative); OPIATES POSITIVE (Negative); PCP Negative (Negative); THC Negative (Negative)
[2019-03-20 20:04] VITALS: BP 108/44
[2019-03-21 00:30] VITALS: BP 110/56
[2019-03-21 05:19] LABS: ABSOLUTE EOSINOPHILS 0.2 thou/uL (0.0-0.7); ABSOLUTE LYMPHOCYTES 1.7 thou/uL (0.8-5.3); ABSOLUTE MONOCYTES 0.3 thou/uL (0.0-1.2); ABSOLUTE NEUTROPHILS 2.2 thou/uL (1.6-8.1); BASOPHILS 0.5 %; HEMATOCRIT 42.4 % (37.0-47.0); LYMPHOCYTES 38.3 %; MONOCYTES 6.8 %; NUCLEATED RBCS 0 /100WBC; PLATELET COUNT* 139 thou/uL (150-400); POLYS 49.4 %; RBC 4.51 mil/uL (4.20-5.00); RDW-CV 14.9 % (10.5-14.5); WBC 4.5 thou/uL (4.0-11.0)
[2019-03-21 05:21] VITALS: BP 109/76
[2019-03-21 05:36] LABS: CALCIUM 8.6 mg/dL (8.5-10.1); POTASSIUM 3.7 mmol/L (3.5-5.1)
[2019-03-21 08:00] VITALS: BP 95/62
--- NOTE | 2019-03-21 09:45 | CON ---
[address] [address] CONSULTATION Name: YONYDOROTEORandi ROMO Room: [address] MGabino#: [id number] Admission: 03/20/19 Attend Phys: Salbador Mckeon MD Discharge: Date of : 76 Report #: [id number] THIS REPORT FOR: //name// CC: Salbador Leary DATE OF SERVICE: 03/21/2019 INFECTIOUS DISEASE CONSULTATION ATTENDING PHYSICIAN: Salbador Mckeon MD. REASON FOR EVALUATION: Admitted with left upper chest-type pain, history of panniculitis due to recurrent cellulitis of abdominal pannus. HISTORY OF PRESENT ILLNESS: Chart reviewed, patient examined. This is a 38-year-old, well known to myself, last saw roughly 3-4 weeks ago, ongoing issues with recurrent inflammatory eruptions involving her pannus, recently diagnosed with cellulitis. There is no evidence of any historically having an abscess, suspicion of underlying panniculitis due to perhaps immune-mediated or noninfectious cause. She has been undergoing outpatient evaluation including biopsies, results are pending. She was admitted with a fairly abrupt onset of left-sided upper chest, shoulder pain, was nonresolving over the course of a couple of hours. It is unclear if she had fevers. She denies any significant change in her pulmonary status. No pleuritic-type injury. She has not been encephalopathic. Evaluation noted unremarkable CBC. D-dimer was 0.44. Electrolytes otherwise unremarkable. Liver functions are adequate. Chest x-ray was unremarkable, no acute processes. Troponin less than 0.06. Urinalysis was unremarkable as well. She still has persistent pain. She does get some degree of improvement with direct pressure. ALLERGIES: LISTED TO TAPE, PSEUDOEPHEDRINE, NONSTEROIDALS, AND SCOPOLAMINE. MEDICATIONS: Include aspirin, pantoprazole, amlodipine, carvedilol, hydralazine, ondansetron, morphine as needed, and nitroglycerin. PAST MEDICAL HISTORY: History of gastric bypass. She has had lap-band surgery and revision, history of , thyroidectomy, cholecystectomy, hypertension, bipolar, PTSD, social anxiety, history of Lyme disease, thyroid cancer, gastroparesis, polycystic ovarian disease, cardiomyopathy, history of congestive heart failure, seizures, and panniculitis. SOCIAL HISTORY: Smokes a pack a day of tobacco, rare ethanol. No illicit drug use. FAMILY HISTORY: [place] [address] CONSULTATION Name: DOROTEO BHAKTA Room: [address]#: [id number] Admission: 03/20/19 Attend Phys: Salbador Mckeon MD Discharge: Date of : 76 Report #: [id number] REVIEW OF SYSTEMS: As above. Denies any significant gastrointestinal-related complaints at this point. PHYSICAL EXAMINATION: GENERAL: She is alert, in [id number] distress secondary to the discomfort. She is lying in left lateral decubitus position. VITAL SIGNS: Temperature 97.7, pulse 57, respirations 16, blood pressure 95/62. SKIN: Warm, dry. HEENT: Normocephalic. Extraocular muscles intact. NECK: Supple. LUNGS: Somewhat diminished, otherwise clear. I do not appreciate any rales or coarse sounds. HEART: Regular, distant. No palpable tenderness in the left shoulder. ABDOMEN: Actually looks quite a bit better, maybe partially related to the fact that she is in a supine position. There is decreased induration. Overall, there is a whole lot of tenderness or discomfort associated with palpation. There is only mild degree of surface inflammation noted. GENITOURINARY: Deferred. RECTAL: Deferred. LABORATORY DATA: Initial CBC: White count of 4.9, H and H of 14.6 and 44.4, platelets of 151. Electrolytes: Sodium 142, potassium 3.8, chloride 106, bicarbonate is 25, anion gap of 11, BUN and creatinine 13 and 1.1, glucose of 93, albumin of 3.1, total protein 6.1. Chest x-ray otherwise was unremarkable. ASSESSMENT: History of panniculitis, perhaps complicated by skin and soft tissue infection. At this point, I do not see the need for initiating additional antimicrobial therapy, actually looks better than it has been previous. We will continue to follow up with her. We will await those biopsy results. Otherwise, evaluation in progress. <ELECTRONICALLY SIGNED> By: Jacoby Hernandez MD 03/21/19 0945 0853 [id number] Hernandez MD /nt
[2019-03-21 13:59] VITALS: BP 95/62
[2019-03-21 14:31] VITALS: BP 120/64
--- NOTE | 2019-03-22 10:28 | CON ---
[address] [address] CONSULTATION Name: DOROTEO BHAKTA Room: [address] Abel[place] Young#: [id number] Admission: 03/20/19 Attend Phys: Salbador Mckeon MD Discharge: 03/21/19 Date of : 76 Report #: [id number] THIS REPORT FOR: //name// CC: Salbador Leary DO DATE OF SERVICE: 03/20/2019 CARDIOLOGY CONSULTATION HISTORY OF THE PRESENT ILLNESS: The patient is a 38-year-old single white female who I was asked to see in the hospital today after she complained of chest pain. The patient has no previous history of heart disease. She does have a history of morbid obesity and is 5 feet 6 inches and previously weighed over 400 pounds. She has had both gastric bypass and laparoscopic band surgery in the past. She now weighs 248 pounds. 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 She apparently had a stress test in the past. She has been admitted here to [facility] back in 2015 with chest pain. The patient was admitted here in 2017 with cellulitis. She was admitted here in 2018 with abdominal discomfort and bronchitis. She states that she was last admitted here in October of this year with hematemesis, nausea and vomiting. She was found to have an anastomotic ulcer and was discharged. She states she was doing well until she woke up this morning, felt heaviness in her chest. She denied associated shortness of breath, diaphoresis or nausea. She has had a cough. She denied any trauma to her chest or rash. She has had no fever or bleeding. She denies exertional dyspnea, palpitations or syncope. She denies any leg pain. PAST MEDICAL HISTORY: Otherwise significant for thyroidectomy for cancer. She has had a cholecystectomy and . She is G1. Last menstrual period was a week ago. She is on control pills. She has a history of hypertension. MEDICATIONS: Include carvedilol and amlodipine. She is on Lasix. FAMILY HISTORY: Her mother had atrial fibrillation. SOCIAL HISTORY: She is from her , lives in [place]. Smokes a pack of cigarettes a day. No alcohol abuse. REVIEW OF SYSTEMS: She has had no history of stroke. She denies snoring at night. No history of liver disease. She has chronic kidney disease. She wears glasses. She has history of bipolar disorder. PHYSICAL EXAMINATION: GENERAL: Revealed an obese, middle-aged female, lying in [place] [address] CONSULTATION Name: DOROTEO BHAKTA Room: [address] Abelardo Young#: [id number] Admission: 03/20/19 Attend Phys: Salbador Mckeon MD Discharge: 03/21/19 Date of : 76 Report #: [id number] no acute distress. VITAL SIGNS: She had a blood pressure of 120/80, pulse 60 and she is afebrile. HEENT: She was anicteric. Conjunctivae pink. Mucous members moist. NECK: Veins difficult to assess due to obesity. No carotid bruits. Neck supple. CHEST: Clear to auscultation. CARDIOVASCULAR: Regular rate and rhythm. No murmur. ABDOMEN: Obese. EXTREMITIES: Had no pitting edema. No Homans' sign. RADIOLOGICAL DATA: Her ECG shows a sinus rhythm with no ST- or T-wave change. Her workup included a chest x-ray today that showed normal heart size and clear lung garcia. LABORATORY DATA: Her lab work today; sodium 142 and creatinine 1.1. Liver function studies were normal. Her troponin 0.06. BNP 2130. In November, her TSH was 0.3. White blood cell count 4.9 and hemoglobin 14.6. IMPRESSION RECOMMENDATIONS: 1. Chest heaviness. Atypical for angina. Suspect noncardiac. No ECG changes or elevated troponin. Recommend no further cardiac evaluation. 2. Hypertension. The patient is on a beta brock and calcium brock. 3. History of morbid obesity with previous gastric bypass. 4. History of gastrointestinal bleeding. 5. Tobacco abuse. 6. History of thyroid cancer. 7. Manic depressive illness. <ELECTRONICALLY SIGNED> By: Triston Caruso MD, [facility] 03/22/19 1028 1516 [id number] Caruso MD, FACC /nt
== END 2019-03-21 15:30 | disposition home or self-care (01) ==
LOC: M.ERS 11:26 → M.TBA-ER 12:45 → M.2W 12:45
PROVIDERS: Emergency Medicine Emergency Medical Services; ADMIT Internal Medicine
DX: R07.89 Other chest pain (principal); K31.84 Gastroparesis; E66.01 Morbid (severe) obesity due to excess calories; F31.9 Bipolar disorder, unspecified; F43.10 Post-traumatic stress disorder, unspecified; M79.3 Panniculitis, unspecified; I11.0 Hypertensive heart disease with heart failure; I50.9 Heart failure, unspecified; Z79.899 Other long term (current) drug therapy; F17.210 Nicotine dependence, cigarettes, uncomplicated; Z79.82 Long term (current) use of aspirin

== ENCOUNTER 2019-03-24 23:53 | Emergency (ER) | payer OTHER, MEDICAID ==
[~2019-03-24] VITALS: Ht 167.6 cm; Wt 109.3 kg
[2019-03-25 00:34] LABS: ABSOLUTE BASOPHILS 0.1 thou/uL (0.0-0.2); ABSOLUTE EOSINOPHILS 0.2 thou/uL (0.0-0.7); ABSOLUTE LYMPHOCYTES 2.2 thou/uL (0.8-5.3); ABSOLUTE MONOCYTES 0.4 thou/uL (0.0-1.2); ABSOLUTE NEUTROPHILS 3.1 thou/uL (1.6-8.1); BASOPHILS 0.9 %; HEMOGLOBIN 14.1 gm/dL (12.0-15.0); MCH 31.4 pg (26.0-34.0); MCHC 33.6 g/dL (28.0-37.0); MCV 93.6 fL (80.0-100.0); MONOCYTES 6.9 %; MPV 9.6 fl. (7.2-11.1); NUCLEATED RBCS 0 /100WBC; PLATELET COUNT* 123 thou/uL (150-400); POLYS 51.2 %; RBC 4.48 mil/uL (4.20-5.00); RDW-CV 14.4 % (10.5-14.5); WBC 6.1 thou/uL (4.0-11.0)
[2019-03-25 00:41] LABS: ANION GAP 10 mmol/L (7-16); BUN 15 mg/dL (7-18); CALCIUM 8.5 mg/dL (8.5-10.1); CHLORIDE 106 mmol/L (98-107); CO2 23 mmol/L (21-32); CREATININE 1.2 mg/dL (0.6-1.3); GLUCOSE 88 mg/dL (70-99); POTASSIUM 3.7 mmol/L (3.5-5.1); SODIUM 139 mmol/L (136-145)
[2019-03-25 00:50] LABS: ALBUMIN 3.1 g/dL (3.4-5.0); ALKALINE PHOSPHATASE 111 U/L (46-116); SGOT 16 U/L (15-37); SGPT 21 U/L (30-65); TOTAL BILIRUBIN 0.8 mg/dL (<0.1-1.0); TOTAL PROTEIN 5.9 g/dL (6.4-8.2); TROPONIN-I LEVEL <0.06 ng/mL (<0.06)
[2019-03-25 03:05] VITALS: BP 115/68
--- NOTE | 2019-03-25 11:35 | EKG ---
[place] [address] ELECTROCARDIOGRAM REPORT Name: DOROTEO BHAKTA Room: [facility]#: [id number] Admission: 03/24/19 Attend Phys: Discharge: 03/25/19 Date of : 76 Report #: [id number] THIS REPORT FOR: //name// [facility] ED Test Date: 2019-03-25 Test Time: 00:25:02 Pat Name: DOROTEO BHAKTA Department: Room: Gender: F Corporate Secretary: SHERIF : 1980 Requested By: Rian Osborn Order Number: [id number] MD: Reji Dixon Measurements Intervals [place] Rate: 57 P: 46 [place]: 162 QRS: 31 QRSD: 111 T: 19 QT: 428 QTc: 417 Interpretive Statements Sinus rhythm Low voltage, precordial leads Borderline T abnormalities, anterior leads Compared to ECG 03/20/2019 11:31:19 T-wave abnormality now present Sinus bradycardia no longer present Electronically Signed On 03-25-2019 11:35:39 CDT by Reji Dixon [email or web address] <ELECTRONICALLY SIGNED> By: Reji Dixon MD, [facility] 03/25/19 1135 0025 0025 Reji Dixon MD, [facility] /EPI
== END 2019-03-25 03:06 | disposition left against medical advice (07) ==
LOC: M.ERS 23:53
PROVIDERS: Emergency Medicine Emergency Medical Services
DX: H53.2 Diplopia (principal); R20.0 Anesthesia of skin; I13.0 Hypertensive heart and chronic kidney disease with heart failure and stage 1 through stage 4 chronic kidney disease, or unspecified chronic kidney disease; I50.9 Heart failure, unspecified; N18.3 Chronic kidney disease, stage 3 (moderate); F41.9 Anxiety disorder, unspecified; F31.9 Bipolar disorder, unspecified; K31.84 Gastroparesis; E28.2 Polycystic ovarian syndrome; F17.210 Nicotine dependence, cigarettes, uncomplicated; Z98.84 Bariatric surgery status; Z98.890 Other specified postprocedural states; Z90.89 Acquired absence of other organs; Z90.49 Acquired absence of other specified parts of digestive tract; Z85.850 Personal history of malignant neoplasm of thyroid; Z88.6 Allergy status to analgesic agent; Z88.8 Allergy status to other drugs, medicaments and biological substances; Z91.048 Other nonmedicinal substance allergy status

== ENCOUNTER → 2019-03-24 | Outpatient (CLI) | payer OTHER, MEDICAID ==
[2019-03-24 08:00] VITALS: BP 130/86; BP 138/86
[2019-03-24 10:55] VITALS: BP 120/85
--- NOTE | 2019-03-24 11:53 | NUR ---
START TIME ON NORMAL SALINE LITER #1 SHOULOD BE 08:34 AM AND STOP TIME ON LITER #1 SHOULD BE 09:35 AM. START TIME ON LITER #2 SHOULD BE 09:43 AND STOP TIME SHOULD BE 10:45 AM.
--- NOTE | 2019-03-24 12:02 | NUR ---
START AND STOP TIMES RECORDED IN PATIENT NOTES FOR EMAR.
== END ==
LOC: M.INFUS 08:15
PROVIDERS: Nurse Practitioner Family
DX: E86.0 Dehydration (principal); I95.9 Hypotension, unspecified; Z86.19 Personal history of other infectious and parasitic diseases

== ENCOUNTER → 2019-03-31 | Outpatient (CLI) | payer OTHER, MEDICAID ==
--- NOTE | 2019-03-31 13:11 | NUR ---
ARRIVED AMBULATORY. MADE SELF COMFORTABLE. PICC INTACT AND PATENT. PICC DRESSING CHANGED. PER STANDING ORDER 1L NS COMPLETED FOR C/O DEHYDRATION. DR. DEXTER SEEN BY DR. MOODY REGFLORIING PICC LINE AND NEED FOR ATB THERAPY. NO NEW ORDER RECIEVED.
--- NOTE | 2019-04-03 07:10 | CON ---
[address] [address] CONSULTATION Name: DOROTEO BHAKTA Room: [facility].#: [id number] Admission: 03/31/19 Attend Phys: SLIME Cronin Discharge: Date of : 76 Report #: [id number] THIS REPORT FOR: //name// CC: Babar Arechiga DATE OF SERVICE: 03/31/2019 INFECTIOUS DISEASE CONSULTATION ATTENDING PHYSICIAN: Misty Arechiga NP REASON FOR CONSULTATION: She is here for followup and to have infusion of fluids. HISTORY OF PRESENT ILLNESS: The patient is here for the above noted. She has been followed for her ongoing issue for chronic panniculitis. At times there has been an infectious component. I do not think that is actually ongoing at this point. She has had a longstanding wait to follow up with a surgeon for possible panniculectomy which we think would be to her benefit. She has seen Dermatology in the past. Actually it has been 6 weeks since the biopsy was done, still awaiting results. At this point she has been off antimicrobial therapy. It continues to have some asymmetry. There is some induration, although overall there is decreased inflammation from its most prominent. Denies systemic illness such as fevers at this point. 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 At this point, we will maintain the line. She needs it for her fluids. We will await the biopsy results. She is to seek out a surgeon, specifically plastic surgeon, who will perhaps give her recommendation. The previous surgeon told her he did not do that type of procedure. We will be available generally as she comes in on Wednesday to get her infusion. <ELECTRONICALLY SIGNED> By: Jacoby Hernandez MD 04/03/19 0710 1326 2227Joleonor Hernandez MD /nt
== END ==
LOC: M.INFUS 05:09
DX: E86.0 Dehydration (principal); I95.9 Hypotension, unspecified

== ENCOUNTER → 2019-04-06 | Outpatient (CLI) | payer OTHER, MEDICAID ==
[~2019-04-06] MED LIST changes: +FUROSEMIDE 40 M40 M1 PO; +LEVAQUIN 500 M500 M2 PO; +MICARDIS 20MG T20 M1 PO
--- NOTE | 2019-04-06 12:45 | NUR ---
ARRIVED AMBULATORY. PICC INTACT TO RIGHT UPPER ARM. DRESSING CHANGED.
== END ==
LOC: M.INFUS 12:16
DX: Z45.2 Encounter for adjustment and management of vascular access device (principal); M79.3 Panniculitis, unspecified

== ENCOUNTER 2019-04-09 16:30 | Emergency (ER) | payer OTHER, MEDICAID ==
[~2019-04-09] VITALS: Ht 167.6 cm; Wt 111.6 kg
[~2019-04-09 16:30] MED LIST changes: -FUROSEMIDE 40 M40 M1 PO; -LEVAQUIN 500 M500 M2 PO; -MICARDIS 20MG T20 M1 PO
[2019-04-09 17:09] LABS: ABSOLUTE BASOPHILS 0.1 thou/uL (0.0-0.2); ABSOLUTE EOSINOPHILS 0.2 thou/uL (0.0-0.7); ABSOLUTE LYMPHOCYTES 1.9 thou/uL (0.8-5.3); ABSOLUTE MONOCYTES 0.4 thou/uL (0.0-1.2); EOSINOPHILS 3.3 %; HEMATOCRIT 41.6 % (37.0-47.0); HEMOGLOBIN 13.9 gm/dL (12.0-15.0); LYMPHOCYTES 33.5 %; MCH 31.4 pg (26.0-34.0); MCHC 33.3 g/dL (28.0-37.0); MCV 94.3 fL (80.0-100.0); MONOCYTES 7.9 %; NUCLEATED RBCS 0 /100WBC; PLATELET COUNT* 180 thou/uL (150-400); POLYS 54.3 %; RBC 4.41 mil/uL (4.20-5.00); RDW-CV 14.6 % (10.5-14.5); WBC 5.6 thou/uL (4.0-11.0)
[2019-04-09] MEDS ORDERED: REQUIP 1 MG TABL1 M1 PO (17:12)
[2019-04-09] MEDS ORDERED: LEVAQUIN 500 M500 M2 PO ×2 (17:13→17:14)
[2019-04-09] MEDS ORDERED: FUROSEMIDE 40 M40 M1 PO (17:13)
[2019-04-09] MEDS ORDERED: ZANAFLEX4 MG PO (17:13)
[2019-04-09] MEDS ORDERED: ACYCLOVIR 400400 MG PO (17:13)
[2019-04-09] MEDS ORDERED: MICARDIS 20MG T20 M1 PO (17:13)
[2019-04-09] MEDS ORDERED: VENTOLIN HFA 1818 GM INH (17:14)
[2019-04-09] MEDS ORDERED: COMPRO25 MG RECTAL (17:14)
[2019-04-09 17:26] LABS: ANION GAP 10 mmol/L (7-16); BUN 13 mg/dL (7-18); CALCIUM 8.2 mg/dL (8.5-10.1); CHLORIDE 101 mmol/L (98-107); CO2 24 mmol/L (21-32); CREATININE 1.3 mg/dL (0.6-1.3); GLUCOSE 96 mg/dL (70-99); POTASSIUM 3.9 mmol/L (3.5-5.1); SODIUM 135 mmol/L (136-145)
[2019-04-09 17:30] LABS: ALKALINE PHOSPHATASE 123 U/L (46-116); LIPASE 44 U/L (73-393); SGOT 18 U/L (15-37); SGPT 44 U/L (30-65); TOTAL BILIRUBIN 0.4 mg/dL (<0.1-1.0); TROPONIN-I LEVEL <0.06 ng/mL (<0.06)
[2019-04-09 18:55] LABS: URINE BILIRUBIN NEGATIVE (Negative); URINE BLOOD NEGATIVE (Negative); URINE CLARITY CLEAR; URINE COLOR YELLOW; URINE GLUCOSE-RANDOM NEGATIVE (Negative); URINE KETONES NEGATIVE (Negative); URINE LEUKOCYTES-REFLEX NEGATIVE (Negative); URINE NITRITE-REFLEX NEGATIVE (Negative); URINE PROTEIN NEGATIVE (Negative); URINE SPECIFIC GRAVITY <= 1.005 (1.005-1.030); URINE UROBILINOGEN 0.2 E.U./dl (0.2-1.0)
[2019-04-09] MEDS ORDERED: MEDROLDOSEPACK PO (19:34)
[2019-04-09] MEDS ORDERED: NORCO 5-325 TA1 EAC1 PO (19:43)
[2019-04-09 19:55] VITALS: BP 122/76
--- NOTE | 2019-04-10 08:43 | EKG ---
[place] [address] ELECTROCARDIOGRAM REPORT Name: [id number] Admission: 04/09/19 Attend Phys: Discharge: 04/09/19 Date of : 76 Report #: [id number] THIS REPORT FOR: //name// [facility] ED Test Date: 2019-04-09 Test Time: 17:22:09 Pat Name: DOROTEO BHAKTA Department: Room: Gender: F Otr Owner Operator: TANIA : 1980 Requested By: Ni Goff Order Number: [id number] MD: Triston Caruso Measurements Intervals [place] Rate: 47 P: -18 FL: 154 QRS: 53 QRSD: 111 T: 33 QT: 466 QTc: 412 Interpretive Statements Sinus bradycardia Compared to ECG 03/25/2019 00:25:02 ST (T wave) deviation now present T-wave abnormality no longer present Electronically Signed On 04-10-2019 8:43:21 CDT by Triston Caruso [email or web address] <ELECTRONICALLY SIGNED> By: Triston Caruso MD, [facility] 04/10/19 0843 21 21 Triston Caruso MD, FACC /EPI
== END 2019-04-09 19:57 | disposition home or self-care (01) ==
LOC: M.ERS 16:30
PROVIDERS: Nurse Practitioner Family
DX: J45.901 Unspecified asthma with (acute) exacerbation (principal); K44.9 Diaphragmatic hernia without obstruction or gangrene; I13.0 Hypertensive heart and chronic kidney disease with heart failure and stage 1 through stage 4 chronic kidney disease, or unspecified chronic kidney disease; I50.9 Heart failure, unspecified; N18.3 Chronic kidney disease, stage 3 (moderate); F31.9 Bipolar disorder, unspecified; F41.9 Anxiety disorder, unspecified; A69.20 Lyme disease, unspecified; K31.84 Gastroparesis; E28.2 Polycystic ovarian syndrome; F17.210 Nicotine dependence, cigarettes, uncomplicated; Z98.890 Other specified postprocedural states; Z90.89 Acquired absence of other organs; Z98.84 Bariatric surgery status; Z85.850 Personal history of malignant neoplasm of thyroid; Z88.6 Allergy status to analgesic agent; Z91.048 Other nonmedicinal substance allergy status; Z88.8 Allergy status to other drugs, medicaments and biological substances

== ENCOUNTER 2019-05-24 10:30 | Emergency (ER) | payer OTHER, MEDICAID ==
[~2019-05-24] VITALS: Ht 167.6 cm; Wt 104.3 kg
[~2019-05-24 10:30] MED LIST changes: +FUROSEMIDE 40 M40 M1 PO; +LEVAQUIN 500 M500 M2 PO; +MICARDIS 20MG T20 M1 PO
[2019-05-24 13:08] LABS: URINE BILIRUBIN NEGATIVE (Negative); URINE BLOOD 1+ (Negative); URINE CLARITY CLEAR; URINE COLOR YELLOW; URINE GLUCOSE-RANDOM NEGATIVE (Negative); URINE KETONES NEGATIVE (Negative); URINE LEUKOCYTES-REFLEX NEGATIVE (Negative); URINE NITRITE-REFLEX NEGATIVE (Negative); URINE PROTEIN NEGATIVE (Negative); URINE UROBILINOGEN 0.2 E.U./dl (0.2-1.0)
[2019-05-24 13:25] LABS: SQUAMOUS 4-10 Moderate /LPF (0-3)
[2019-05-24] MEDS ORDERED: NORCO 5-325 TA1 EAC1 PO (13:25)
[2019-05-24 13:26] LABS: BACTERIA-REFLEX 1-9 Few /HPF (None Seen); CASTS None Seen /LPF (None Seen); CRYSTALS None Seen /LPF (None Seen); MUCUS >6 Heavy strn/LPF (None Seen); URINE RBC 3-10 Few /HPF (0-2); URINE WBC-REFLEX 0-5 Rare /HPF (0-5)
[2019-05-24] MEDS ORDERED: PROAIR HFA8.5 GM INH (13:37)
[2019-05-24] MEDS ORDERED: ZPAK PO (13:37)
[2019-05-24 13:40] VITALS: BP 140/88
== END 2019-05-24 13:42 | disposition home or self-care (01) ==
LOC: M.ERS 10:30
PROVIDERS: Physician Assistant
DX: M54.5 Low back pain (principal); J20.9 Acute bronchitis, unspecified; F31.9 Bipolar disorder, unspecified; I13.0 Hypertensive heart and chronic kidney disease with heart failure and stage 1 through stage 4 chronic kidney disease, or unspecified chronic kidney disease; I50.9 Heart failure, unspecified; N18.3 Chronic kidney disease, stage 3 (moderate); Z98.84 Bariatric surgery status; Z90.89 Acquired absence of other organs; Z90.49 Acquired absence of other specified parts of digestive tract; Z98.890 Other specified postprocedural states; Z85.850 Personal history of malignant neoplasm of thyroid; Z88.6 Allergy status to analgesic agent; Z91.048 Other nonmedicinal substance allergy status; F17.210 Nicotine dependence, cigarettes, uncomplicated; Z91.018 Allergy to other foods

== ENCOUNTER 2019-06-25 08:28 | Emergency (ER) | payer OTHER, MEDICAID ==
[~2019-06-25] VITALS: Ht 167.6 cm; Wt 100.2 kg
[2019-06-25 08:36] VITALS: BP 134/96
[2019-06-25] MEDS ORDERED: VITAMIN D250000 UNIT PO (08:40)
[2019-06-25] MEDS ORDERED: NORCO 5-325 TA1 EAC1 PO (09:01)
[2019-06-25] MEDS ORDERED: PENICILLIN VK500 MG PO (09:01)
[2019-06-26] MEDS ORDERED: VITAMIN D250000 UNIT PO (16:45)
== END 2019-06-25 09:07 | disposition home or self-care (01) ==
LOC: M.ERS 08:28
DX: K02.9 Dental caries, unspecified (principal); I13.0 Hypertensive heart and chronic kidney disease with heart failure and stage 1 through stage 4 chronic kidney disease, or unspecified chronic kidney disease; N18.3 Chronic kidney disease, stage 3 (moderate); I50.9 Heart failure, unspecified; K31.84 Gastroparesis; F31.9 Bipolar disorder, unspecified; F41.9 Anxiety disorder, unspecified; Z87.891 Personal history of nicotine dependence; Z88.6 Allergy status to analgesic agent; Z88.8 Allergy status to other drugs, medicaments and biological substances; Z90.49 Acquired absence of other specified parts of digestive tract; Z98.890 Other specified postprocedural states; Z85.850 Personal history of malignant neoplasm of thyroid

== ENCOUNTER 2019-06-26 16:34 | Emergency (ER) | payer OTHER, MEDICAID ==
[~2019-06-26] VITALS: Ht 167.6 cm; Wt 101.2 kg
[~2019-06-26 16:34] MED LIST changes: +PENICILLIN VK500 MG PO; +VITAMIN D250000 UNIT PO
[2019-06-26] MEDS ORDERED: VITAMIN D250000 UNIT PO (16:45)
[2019-06-26 17:02] LABS: ABSOLUTE EOSINOPHILS 0.2 thou/uL (0.0-0.7); ABSOLUTE LYMPHOCYTES 1.8 thou/uL (0.8-5.3); ABSOLUTE MONOCYTES 0.4 thou/uL (0.0-1.2); ABSOLUTE NEUTROPHILS 3.7 thou/uL (1.6-8.1); BASOPHILS 0.7 %; EOSINOPHILS 3.6 %; HEMATOCRIT 40.7 % (37.0-47.0); HEMOGLOBIN 13.7 gm/dL (12.0-15.0); LYMPHOCYTES 29.7 %; MCH 30.4 pg (26.0-34.0); MCHC 33.6 g/dL (28.0-37.0); MCV 90.6 fL (80.0-100.0); MONOCYTES 5.8 %; MPV 8.9 fl. (7.2-11.1); NUCLEATED RBCS 0 /100WBC; PLATELET COUNT* 159 thou/uL (150-400); POLYS 60.2 %; RBC 4.49 mil/uL (4.20-5.00); WBC 6.1 thou/uL (4.0-11.0)
[2019-06-26 17:03] LABS: URINE BILIRUBIN NEGATIVE (Negative); URINE BLOOD NEGATIVE (Negative); URINE CLARITY CLEAR; URINE COLOR YELLOW; URINE GLUCOSE-RANDOM NEGATIVE (Negative); URINE KETONES NEGATIVE (Negative); URINE LEUKOCYTES-REFLEX NEGATIVE (Negative); URINE NITRITE-REFLEX NEGATIVE (Negative); URINE PROTEIN NEGATIVE (Negative); URINE UROBILINOGEN 0.2 E.U./dl (0.2-1.0)
[2019-06-26 17:15] LABS: CALCIUM 8.6 mg/dL (8.5-10.1); CREATININE 1.5 mg/dL (0.6-1.3); POTASSIUM 3.7 mmol/L (3.5-5.1)
[2019-06-26 17:19] LABS: ALBUMIN 3.6 g/dL (3.4-5.0); TOTAL BILIRUBIN 0.4 mg/dL (<0.1-1.0); TOTAL PROTEIN 7.1 g/dL (6.4-8.2)
[2019-06-26 18:41] VITALS: BP 132/78
--- NOTE | 2019-06-27 11:03 | EKG ---
[place] [address] ELECTROCARDIOGRAM REPORT Name: DOROTEO BHAKTA Room: [facility]#: [id number] Admission: 06/26/19 Attend Phys: Discharge: 06/26/19 Date of : 76 Report #: [id number] THIS REPORT FOR: //name// [facility] ED Test Date: 2019-06-26 Test Time: 18:39:02 Pat Name: DOROTEO BHAKTA Department: Room: Gender: F Press Writer: HORACE : 1980 Requested By: Jatinder Weiss Order Number: [id number] MD: Reji Dixon Measurements Intervals [place] Rate: 47 P: 4 [place]: 153 QRS: 35 QRSD: 115 T: 21 QT: 495 QTc: 438 Interpretive Statements Sinus bradycardia Low voltage, precordial leads Compared to ECG 04/09/2019 17:22:09 Intraventricular conduction delay now present Low QRS voltage now present Electronically Signed On 06-27-2019 11:03:18 SOAPING MACHINE BACK TENDER by Reji Dixon [email or web address] <ELECTRONICALLY SIGNED> By: Reji Dixon MD, [facility] 06/27/19 1103 38 38 Reji Dixon MD, FACC /EPI
== END 2019-06-26 18:42 | disposition home or self-care (01) ==
LOC: M.ERS 16:34
PROVIDERS: Physician Assistant
DX: R10.13 Epigastric pain (principal); I11.0 Hypertensive heart disease with heart failure; I50.9 Heart failure, unspecified; I12.9 Hypertensive chronic kidney disease with stage 1 through stage 4 chronic kidney disease, or unspecified chronic kidney disease; E28.2 Polycystic ovarian syndrome; N18.3 Chronic kidney disease, stage 3 (moderate); F31.9 Bipolar disorder, unspecified; F41.9 Anxiety disorder, unspecified; Z98.890 Other specified postprocedural states; Z90.49 Acquired absence of other specified parts of digestive tract; Z85.850 Personal history of malignant neoplasm of thyroid; Z87.891 Personal history of nicotine dependence; Z91.048 Other nonmedicinal substance allergy status; Z88.8 Allergy status to other drugs, medicaments and biological substances

== ENCOUNTER 2019-08-28 22:59 | Emergency (ER) | payer OTHER ==
[~2019-08-28] VITALS: Ht 167.6 cm; Wt 95.7 kg
[~2019-08-28 22:59] MED LIST changes: +VITAMIN D21250 MCG PO
[2019-08-29 00:44] LABS: ABSOLUTE EOSINOPHILS 0.3 thou/uL (0.0-0.7); ABSOLUTE LYMPHOCYTES 2.2 thou/uL (0.8-5.3); ABSOLUTE MONOCYTES 0.4 thou/uL (0.0-1.2); ABSOLUTE NEUTROPHILS 3.6 thou/uL (1.6-8.1); BASOPHILS 0.6 %; EOSINOPHILS 3.9 %; HEMATOCRIT 37.1 % (37.0-47.0); HEMOGLOBIN 12.5 gm/dL (12.0-15.0); LYMPHOCYTES 33.3 %; MCH 29.6 pg (26.0-34.0); MCHC 33.6 g/dL (28.0-37.0); MCV 88.1 fL (80.0-100.0); MONOCYTES 6.7 %; MPV 8.4 fl. (7.2-11.1); NUCLEATED RBCS 0 /100WBC; PLATELET COUNT* 176 thou/uL (150-400); POLYS 55.5 %; RBC 4.21 mil/uL (4.20-5.00); RDW-CV 15.2 % (10.5-14.5); WBC 6.5 thou/uL (4.0-11.0)
[2019-08-29 00:52] LABS: CALCIUM 8.3 mg/dL (8.5-10.1); CREATININE 1.1 mg/dL (0.6-1.3); POTASSIUM 4.2 mmol/L (3.5-5.1)
[2019-08-29 02:25] VITALS: BP 106/70
[2019-08-30] MEDS ORDERED: AMITRIPTYLINE H25 M4 PO (00:40)
[2019-08-30] MEDS ORDERED: SPRINTEC1 EACH PO (00:56)
[2019-08-30] MEDS ORDERED: KLOR-CON 10 ER10 MEQ PO (00:57)
[2019-08-30] MEDS ORDERED: CHANTIX1 MG PO (00:58)
[2019-08-30] MEDS ORDERED: COMPRO25 MG RECTAL (01:03)
== END 2019-08-29 02:25 | disposition home or self-care (01) ==
LOC: M.ERS 22:59
PROVIDERS: Emergency Medicine
DX: G43.909 Migraine, unspecified, not intractable, without status migrainosus (principal); R00.1 Bradycardia, unspecified; R11.2 Nausea with vomiting, unspecified; I13.0 Hypertensive heart and chronic kidney disease with heart failure and stage 1 through stage 4 chronic kidney disease, or unspecified chronic kidney disease; N18.3 Chronic kidney disease, stage 3 (moderate); I50.9 Heart failure, unspecified; Z87.891 Personal history of nicotine dependence; Z88.6 Allergy status to analgesic agent; Z88.8 Allergy status to other drugs, medicaments and biological substances; Z98.890 Other specified postprocedural states; Z90.49 Acquired absence of other specified parts of digestive tract; Z85.850 Personal history of malignant neoplasm of thyroid

== ENCOUNTER 2019-08-29 21:53 | Inpatient (IN) | payer OTHER, MEDICAID ==
[~2019-08-29] VITALS: Ht 167.6 cm; Wt 102.6 kg
[2019-08-29 21:57] VITALS: BP 139/92
[2019-08-29 22:50] LABS: ABSOLUTE BASOPHILS 0.1 thou/uL (0.0-0.2); ABSOLUTE EOSINOPHILS 0.3 thou/uL (0.0-0.7); ABSOLUTE LYMPHOCYTES 2.4 thou/uL (0.8-5.3); ABSOLUTE MONOCYTES 0.4 thou/uL (0.0-1.2); ABSOLUTE NEUTROPHILS 3.1 thou/uL (1.6-8.1); BASOPHILS 0.9 %; EOSINOPHILS 4.1 %; HEMATOCRIT 37.4 % (37.0-47.0); HEMOGLOBIN 12.3 gm/dL (12.0-15.0); LYMPHOCYTES 38.5 %; MCH 29.2 pg (26.0-34.0); MCV 88.5 fL (80.0-100.0); MONOCYTES 6.6 %; MPV 8.9 fl. (7.2-11.1); NUCLEATED RBCS 0 /100WBC; PLATELET COUNT* 185 thou/uL (150-400); POLYS 49.9 %; RBC 4.22 mil/uL (4.20-5.00); WBC 6.2 thou/uL (4.0-11.0)
[2019-08-29 23:01] LABS: ANION GAP 6 mmol/L (7-16); BUN 12 mg/dL (7-18); CALCIUM 7.9 mg/dL (8.5-10.1); CHLORIDE 104 mmol/L (98-107); CO2 26 mmol/L (21-32); CREATININE 1.1 mg/dL (0.6-1.3); GLUCOSE 139 mg/dL (70-99); POTASSIUM 4.5 mmol/L (3.5-5.1); SODIUM 136 mmol/L (136-145)
[2019-08-29 23:03] LABS: APTT 27.4 Seconds (25.0-31.3); PROTIME 10.3 Seconds (9.20-11.50)
[2019-08-29 23:15] LABS: ALBUMIN 2.9 g/dL (3.4-5.0); ALKALINE PHOSPHATASE 73 U/L (46-116); CK-MB MASS < 0.5 ng/mL (<0.5-3.6); LIPASE 33 U/L (73-393); MAGNESIUM 1.6 mg/dL (1.8-2.4); NT-PRO BRAIN NAT PEPTIDE 1256 pg/mL (<300); SGOT 11 U/L (15-37); SGPT 17 U/L (30-65); TOTAL BILIRUBIN 0.2 mg/dL (<0.1-1.0); TOTAL PROTEIN 6.1 g/dL (6.4-8.2)
[2019-08-29 23:45] VITALS: BP 120/88
[2019-08-29 23:50] VITALS: BP 146/92
[2019-08-30] MEDS ORDERED: AMITRIPTYLINE H25 M4 PO (00:40)
[2019-08-30] MEDS ORDERED: SPRINTEC1 EACH PO (00:56)
[2019-08-30] MEDS ORDERED: KLOR-CON 10 ER10 MEQ PO (00:57)
[2019-08-30] MEDS ORDERED: CHANTIX1 MG PO (00:58)
[2019-08-30] MEDS ORDERED: COMPRO25 MG RECTAL (01:03)
[2019-08-30 04:00] VITALS: BP 118/68
--- NOTE | 2019-08-30 06:57 | NUR ---
PATIENT ARRIVED TO UNIT FROM ER APPROX 2345. SHE HAS BEEN BRADYCARDIC THROUGHOUT SHIFT, ASYMPTOMATIC. UPON ARRIVING, SHE HAD C/O HEADACHE AND BACK PAIN AND REQUESTING PAIN MEDICATION. EDUCATED PATIENT ON EFFECTS OF PAIN MEDS ON HEART RATE AND OFFERED THE PATIENT OVER THE COUNTER ANALGESIC. PATIENT REFUSED AND STATES "THAT DOESN'T WORK." PROVIDED THE PATIENT WITH HEATING PAD. SHORTLY AFTER, PATIENT OBSERVED SLEEPING AND SNORING IN BED. FALL PRECAUTIONS IMPLEMENTED DUE TO BRADYCARDIA. CALL LIGHT WITHIN REACH
[2019-08-30 08:00] VITALS: BP 118/68
--- NOTE | 2019-08-30 11:03 | NUR ---
ASSUMED CARE OF PT AT 0730. PT LYING IN BED. A&0X4, DENIES ANY PAIN, DIZZINESS, LIGHT HEADEDNESS OR SHORTNESS OF BREATH AT THIS TIME. TRACING SB ON THE CASSANDRA CONSULTANT-RATE IN THE 40'S-50'S AT THIS TIME. PT ON RA SAT UPPER 90'S. PT UP WITH SBA TO BATHROOM. PT NPO FOR CARDIOLOGY CONSULT AT THIS TIME. SHILPA VAUGHAN NP SEEN PT AND PT REQUESTING TO GO HOME-CARDIOLOGY OK WITH DISCHARGE AND OUTPT STRESS TEST IN AM IF OK WITH HIMS. ECHO ORDERED. AM ASSESSMENT CHARTED. MEDICATIONS PER OCT. PT REPOSITIONS SELF. HOURLY ROUNDING OBSERVED. BED IN LOW POSITION. CALL LIGHT WITHIN REACH. WILL CONTINUE PLAN OF CARE.
[2019-08-30 11:13] VITALS: BP 118/68
--- NOTE | 2019-08-30 12:10 | 2DMMODE ---
[place] [address] 2 D/M-MODE ECHOCARDIOGRAM Name: DOROTEO BHAKTA Room: [address] IN [facility]#: [id number] Admission: 08/29/19 Attend Phys: Meño Orr, Discharge: Date of : 76 Date of Service: 08/30/19 1209 Report #: [id number] THIS REPORT FOR: //name// APPROVED REPORT Study performed: 08/30/2019 10:32:34 EXAM: Comprehensive 2D, Doppler, and color-flow Echocardiogram Patient Location: In-Patient Room #: [facility] Status: routine BSA: 2.11 HR: 56 bpm BP: 118/68 mmHg Rhythm: NSR Other Information Study Quality: Good Indications Bradycardia 2D Dimensions IVSd: 12.05 (7-11mm) LVOT Diam: 22.01 (18-24mm) LVDd: 50.80 mm PWd: 7.55 (7-11mm) Ascending Ao: 35.65 (22-36mm) LVDs: 32.60 (25-40mm) Aortic Root: 33.16 mm Volumes Left Atrial Volume (Systole) LA ESV Index: 28.40 mL/m2 Aortic Valve AoV Peak Ben.: 1.22 m/s AO Peak Gr.: 5.98 mmHg LVOT Max P.56 mmHg AO Mean Gr.: 2.79 mmHg LVOT Mean P.43 mmHg LVOT Max V: 1.18 m/s AO V2 VTI: 24.39 cm LVOT Mean V: 0.70 m/s CESILIA (VTI): 3.90 cm2 LVOT V1 VTI: 25.00 cm Mitral Valve E/A Ratio: 1.04 MV Decel. Time: 237.84 ms MV E Max Ben.: 0.80 m/[place] [address] 2 D/M-MODE ECHOCARDIOGRAM Name: DOROTEO BHAKTA Room: [address] IN ..#: [id number] Admission: 08/29/19 Attend Phys: Meño Orr, Discharge: Date of : 76 Date of Service: 08/30/19 1209 Report #: [id number] MV PHT: 68.97 ms MVA (PHT): 3.19 cm2 TDI E/Lateral E': 5.00 E/Medial E': 5.71 Medial E' Ben.: 0.14 m/s Lateral E' Ben.: 0.16 m/s Pulmonary Valve PV Peak Ben.: 0.89 m/s PV Peak Gr.: 3.14 mmHg Tricuspid Valve RAP Estimate: 5.00 mmHg TR Peak Gr.: 21.80 mmHg RVSP: 26.00 mmHg PA Pressure: 26.00 mmHg Left Ventricle The left ventricle is normal size. There is normal LV segmental wall motion. There is normal left ventricular wall thickness. Left ventricular systolic function is normal. The left ventricular ejection fraction is within the normal range. LVEF is 60%. The left ventricular diastolic function is normal. Right Ventricle The right ventricle is normal size. The right ventricular systolic function is normal. Atria The left atrium size is normal. The right atrium size is normal. Aortic Valve The aortic valve is normal in structure. No aortic regurgitation is present. There is no aortic valvular stenosis. Mitral Valve The mitral valve is normal in structure. Mild mitral regurgitation. No evidence of mitral valve stenosis. Tricuspid Valve The tricuspid valve is normal in structure. Trace tricuspid regurgitation. No pulmonary hypertension. Pulmonic Valve The pulmonary valve is normal in structure. [place] [address] 2 D/M-MODE ECHOCARDIOGRAM Name: DOROTEO BHAKTA Fer Room: [address]#: [id number] Admission: 08/29/19 Attend Phys: Meño Orr, Discharge: Date of : 76 Date of Service: 08/30/19 1209 Report #: [id number] Great Vessels The aortic root is normal in size. IVC is normal in size and collapses >50% with inspiration. Pericardium There is no pericardial effusion. <Conclusion> The left ventricle is normal size. There is normal left ventricular wall thickness. Left ventricular systolic function is normal. The left ventricular ejection fraction is within the normal range. LVEF is 60%. The left ventricular diastolic function is normal. The right ventricle is normal size. The left atrium size is normal. The aortic valve is normal in structure. The mitral valve is normal in structure. Mild mitral regurgitation. The tricuspid valve is normal in structure. IVC is normal in size and collapses >50% with inspiration. There is no pericardial effusion. <ELECTRONICALLY SIGNED> By: Bob Strange MD, FACC 08/30/19 1209 120 Bob Strange MD, FACC /INF
--- NOTE | 2019-08-30 12:59 | NUR ---
DISCHARGE ORDERS RECEIVED. DISCHARGE INSTRUCTIONS, CARE NOTES AND FOLLOW UP APPTS GIVEN TO PT. PT COMMUNICATES UNDERSTANDING OF DISCHARGE TEACHING. IV AND VICE PRESIDENT OF OPERATIONS REMOVED. EVENT RECORDER PLACED ON PT BY QUALITY PROCESS ENGINEER, WILL. PT SCHEDULED FOR OUTPT STRESS TEST IN AM. PT DISCHARGED WITH ALL BELONGINGS AND PAPERWORK VIA WHEELCHAIR WITH [employer]OL[employer]ER [employer] TO SPOUSE OWN PERSONAL VEHICLE.
--- NOTE | 2019-08-30 15:02 | EKG ---
[place] [address] ELECTROCARDIOGRAM REPORT Name: DOROTEO BHAKTA Room: [address] IN ..#: [id number] Admission: 08/29/19 Attend Phys: Meño Orr MD Discharge: 08/30/19 Date of : 76 Report #: [id number] THIS REPORT FOR: //name// [facility] ED Test Date: 2019-08-29 Test Time: 22:05:28 Pat Name: DOROTEO BHAKTA Department: Room: [facility] Gender: Emergency Management Program Specialist: : 1980 Requested By: Jose Childs Order Number: [id number] MD: Bob Strange Measurements Intervals [place] Rate: 34 P: 14 [place]: 161 QRS: 30 QRSD: 112 T: 19 QT: 520 QTc: 391 Interpretive Statements Sinus bradycardia Borderline intraventricular conduction delay Compared to ECG 06/26/2019 18:39:02 No significant changes Electronically Signed On 08-30-2019 15:02:00 SALES REVIEW CLERK by Bob Strange [email or web address] <ELECTRONICALLY SIGNED> By: Bob Strange MD, [facility] 08/30/19 1502 04 04 Bob Strange MD, FACC /EPI
== END 2019-08-30 13:02 | disposition home or self-care (01) | DRG 309 ==
LOC: M.ERS 21:53 → M.TBA-ER 23:21 → M.2W 23:21
PROVIDERS: Family Medicine; ADMIT Internal Medicine
DX: R00.1 Bradycardia, unspecified (principal); I13.0 Hypertensive heart and chronic kidney disease with heart failure and stage 1 through stage 4 chronic kidney disease, or unspecified chronic kidney disease; E44.1 Mild protein-calorie malnutrition; F31.9 Bipolar disorder, unspecified; F43.10 Post-traumatic stress disorder, unspecified; F41.8 Other specified anxiety disorders; G43.909 Migraine, unspecified, not intractable, without status migrainosus; F17.210 Nicotine dependence, cigarettes, uncomplicated; E89.0 Postprocedural hypothyroidism; E66.01 Morbid (severe) obesity due to excess calories; E28.2 Polycystic ovarian syndrome; N18.3 Chronic kidney disease, stage 3 (moderate); I50.9 Heart failure, unspecified; Z85.850 Personal history of malignant neoplasm of thyroid; Z90.710 Acquired absence of both cervix and uterus; Z98.84 Bariatric surgery status; Z79.899 Other long term (current) drug therapy; Z79.51 Long term (current) use of inhaled steroids; Z79.84 Long term (current) use of oral hypoglycemic drugs; Z88.8 Allergy status to other drugs, medicaments and biological substances; Z82.49 Family history of ischemic heart disease and other diseases of the circulatory system; Z68.36 Body mass index [BMI] 36.0-36.9, adult; Z90.49 Acquired absence of other specified parts of digestive tract

== ENCOUNTER → 2019-09-22 | Outpatient (CLI) | payer OTHER ==
[~2019-09-22] MED LIST changes: +AMITRIPTYLINE H25 M4 PO; +KLOR-CON 10 ER10 MEQ PO; +SPRINTEC1 EACH PO
[2019-09-22 10:45] VITALS: BP 119/78
[2019-09-22 12:10] VITALS: BP 128/80
--- NOTE | 2019-09-22 12:15 | NUR ---
INFUSION COMPLETED AND TOLERATED WELL. ROC QUESTIONS OR NEEDS AT DISCHARGE.
== END ==
LOC: M.INFUS 05:08
DX: E86.0 Dehydration (principal); K31.84 Gastroparesis

== ENCOUNTER → 2019-09-29 | Outpatient (CLI) | payer OTHER ==
[2019-09-29 10:05] VITALS: BP 125/74
--- NOTE | 2019-09-29 11:33 | NUR ---
INFUSIOPN COMPLETED AND TOLERATED WELL.
== END ==
LOC: M.INFUS 03:32
DX: E86.0 Dehydration (principal); K31.84 Gastroparesis

== ENCOUNTER → 2019-10-04 | Outpatient (CLI) | payer OTHER ==
[~2019-10-04] VITALS: Ht 167.6 cm; Wt 97.5 kg
[~2019-10-04] MED LIST changes: +BACTRIM DS TAB1 EAC1 PO; +BENTYL 20 MG TA20 M1 PO; +TYLENOL WITH CO1 TA1 PO
[2019-10-04 09:53] VITALS: BP 160/111
[2019-10-04 10:09] LABS: HEMATOCRIT 37.7 % (37.0-47.0); HEMOGLOBIN 12.5 gm/dL (12.0-15.0); MCH 29.7 pg (26.0-34.0); MCHC 33.2 g/dL (28.0-37.0); MCV 89.5 fL (80.0-100.0); RBC 4.21 mil/uL (4.20-5.00); RDW-CV 14.6 % (10.5-14.5); WBC 4.9 thou/uL (4.0-11.0)
[2019-10-04 10:18] LABS: APTT 25.7 Seconds (25.0-31.3); CALCIUM 8.2 mg/dL (8.5-10.1); CREATININE 1.2 mg/dL (0.6-1.3); POTASSIUM 3.9 mmol/L (3.5-5.1)
[2019-10-04 11:47] VITALS: BP 129/73
[2019-10-04 12:20] VITALS: BP 137/87
== END | disposition home or self-care (01) ==
LOC: M.INT 09:09
PROVIDERS: Radiology Diagnostic Radiology
DX: Z45.2 Encounter for adjustment and management of vascular access device (principal); E86.0 Dehydration; I13.0 Hypertensive heart and chronic kidney disease with heart failure and stage 1 through stage 4 chronic kidney disease, or unspecified chronic kidney disease; N18.3 Chronic kidney disease, stage 3 (moderate); I50.9 Heart failure, unspecified; G43.909 Migraine, unspecified, not intractable, without status migrainosus; J45.909 Unspecified asthma, uncomplicated; F31.9 Bipolar disorder, unspecified; F41.8 Other specified anxiety disorders; F17.210 Nicotine dependence, cigarettes, uncomplicated; Z98.890 Other specified postprocedural states; Z79.899 Other long term (current) drug therapy; Z98.84 Bariatric surgery status; Z90.49 Acquired absence of other specified parts of digestive tract; Z85.850 Personal history of malignant neoplasm of thyroid; Z88.8 Allergy status to other drugs, medicaments and biological substances

== ENCOUNTER → 2019-10-06 | Outpatient (CLI) | payer OTHER ==
[~2019-10-06] MED LIST changes: -BACTRIM DS TAB1 EAC1 PO; -TYLENOL WITH CO1 TA1 PO
[2019-10-06 09:44] VITALS: BP 118/73
--- NOTE | 2019-10-06 12:46 | NUR ---
ARRIVED AMBULATROY. MADE SELF COMFORTABLE IN RECLINER. NEW PORT A CATH NOTED TO RIGHT CHEST. PORT ACCESSED WITH OUT DIOFFICULTY. GOOD BRISK BLOOD RETURN NOTED AND FLUSHED WITH EASE. INFUSION COMPLETED AND TOELRATED WELL. PORT FLUSHED AND DEACCESSED. DENIES QUESTIONS OR NEEDS AT DISCHARGE.
== END ==
LOC: M.INFUS 03:35
DX: K31.84 Gastroparesis (principal); E86.0 Dehydration

== ENCOUNTER 2019-10-09 10:10 | Emergency (ER) | payer OTHER ==
[~2019-10-09] VITALS: Ht 167.6 cm; Wt 97.5 kg
[~2019-10-09 10:10] MED LIST changes: -BENTYL 20 MG TA20 M1 PO
[2019-10-09 10:50] LABS: URINE BILIRUBIN NEGATIVE (Negative); URINE BLOOD NEGATIVE (Negative); URINE CLARITY CLEAR; URINE COLOR YELLOW; URINE GLUCOSE-RANDOM NEGATIVE (Negative); URINE KETONES NEGATIVE (Negative); URINE LEUKOCYTES-REFLEX NEGATIVE (Negative); URINE NITRITE-REFLEX NEGATIVE (Negative); URINE PROTEIN NEGATIVE (Negative); URINE UROBILINOGEN 0.2 E.U./dl (0.2-1.0)
[2019-10-09 11:30] LABS: ABSOLUTE EOSINOPHILS 0.1 thou/uL (0.0-0.7); ABSOLUTE LYMPHOCYTES 1.7 thou/uL (0.8-5.3); ABSOLUTE MONOCYTES 0.2 thou/uL (0.0-1.2); ABSOLUTE NEUTROPHILS 3.4 thou/uL (1.6-8.1); BASOPHILS 0.7 %; HEMATOCRIT 36.7 % (37.0-47.0); HEMOGLOBIN 12.2 gm/dL (12.0-15.0); LYMPHOCYTES 30.5 %; MCH 29.7 pg (26.0-34.0); MCHC 33.3 g/dL (28.0-37.0); MONOCYTES 4.4 %; MPV 8.1 fl. (7.2-11.1); NUCLEATED RBCS 0 /100WBC; PLATELET COUNT* 153 thou/uL (150-400); POLYS 62.4 %; RBC 4.12 mil/uL (4.20-5.00); RDW-CV 14.8 % (10.5-14.5); WBC 5.5 thou/uL (4.0-11.0)
[2019-10-09 11:35] LABS: CALCIUM 7.7 mg/dL (8.5-10.1); POTASSIUM 3.8 mmol/L (3.5-5.1)
[2019-10-09 11:39] LABS: ALBUMIN 2.8 g/dL (3.4-5.0); TOTAL BILIRUBIN 0.3 mg/dL (<0.1-1.0)
[2019-10-09] MEDS ORDERED: ONDANSETRON HCL4 M2 PO (13:23)
[2019-10-09] MEDS ORDERED: BENTYL 20 MG TA20 M1 PO ×2 (13:23→13:34)
[2019-10-09 13:41] VITALS: BP 144/92
--- NOTE | 2019-10-09 15:30 | EKG ---
[place] [address] ELECTROCARDIOGRAM REPORT Name: DOROTEO BHAKTA Room: [facility]#: [id number] Admission: 10/09/19 Attend Phys: Discharge: 10/09/19 Date of : 76 Date of Service: 10/09/19 1053 Report #: [id number] THIS REPORT FOR: //name// [facility] ED Test Date: 2019-10-09 Test Time: 10:53:48 Pat Name: DOROTEO BHAKTA Department: Room: Gender: Autism Teacher: MELODIE : 1980 Requested By: Ni Goff Order Number: [id number] MD: Triston Caruso Measurements Intervals [place] Rate: 60 P: 40 [place]: 149 QRS: 32 QRSD: 114 T: 18 QT: 421 QTc: 421 Interpretive Statements Sinus rhythm Borderline intraventricular conduction delay Compared to ECG 08/29/2019 22:05:28 Sinus bradycardia no longer present Electronically Signed On 10-09-2019 15:29:42 HOME RESTORATION SERVICE SUPERVISOR by Triston Caruso [email or web address] <ELECTRONICALLY SIGNED> By: Triston Caruso MD, [facility] 10/09/19 1529 1053 1053 Triston Caruso MD, [facility] /EPI
== END 2019-10-09 13:41 | disposition home or self-care (01) ==
LOC: M.ERS 10:10
PROVIDERS: Nurse Practitioner Family
DX: K52.9 Noninfective gastroenteritis and colitis, unspecified (principal); I13.0 Hypertensive heart and chronic kidney disease with heart failure and stage 1 through stage 4 chronic kidney disease, or unspecified chronic kidney disease; I50.9 Heart failure, unspecified; N18.3 Chronic kidney disease, stage 3 (moderate); F31.9 Bipolar disorder, unspecified; Z85.850 Personal history of malignant neoplasm of thyroid; Z98.84 Bariatric surgery status; Z90.49 Acquired absence of other specified parts of digestive tract; Z90.710 Acquired absence of both cervix and uterus; Z88.6 Allergy status to analgesic agent; Z88.8 Allergy status to other drugs, medicaments and biological substances; Z87.891 Personal history of nicotine dependence

== ENCOUNTER 2019-10-13 12:40 | Emergency (ER) | payer OTHER ==
[~2019-10-13] VITALS: Ht 167.6 cm; Wt 99.8 kg
[~2019-10-13 12:40] MED LIST changes: -BACTRIM DS TAB1 EAC1 PO; -TYLENOL WITH CO1 TA1 PO
[2019-10-13 13:59] LABS: ABSOLUTE BASOPHILS 0.1 thou/uL (0.0-0.2); ABSOLUTE EOSINOPHILS 0.2 thou/uL (0.0-0.7); ABSOLUTE LYMPHOCYTES 1.8 thou/uL (0.8-5.3); ABSOLUTE MONOCYTES 0.5 thou/uL (0.0-1.2); ABSOLUTE NEUTROPHILS 5.8 thou/uL (1.6-8.1); BASOPHILS 0.8 %; HEMATOCRIT 37.6 % (37.0-47.0); HEMOGLOBIN 12.4 gm/dL (12.0-15.0); LYMPHOCYTES 21.9 %; MCH 29.5 pg (26.0-34.0); MCHC 33.1 g/dL (28.0-37.0); MCV 89.1 fL (80.0-100.0); MPV 8.4 fl. (7.2-11.1); NUCLEATED RBCS 0 /100WBC; PLATELET COUNT* 174 thou/uL (150-400); POLYS 69.3 %; RBC 4.22 mil/uL (4.20-5.00); RDW-CV 14.7 % (10.5-14.5); WBC 8.4 thou/uL (4.0-11.0)
[2019-10-13 14:07] LABS: INR 0.9; PROTIME 9.7 Seconds (9.20-11.50)
[2019-10-13 14:11] LABS: CALCIUM 8.1 mg/dL (8.5-10.1); POTASSIUM 4.1 mmol/L (3.5-5.1)
[2019-10-13 14:23] LABS: ALBUMIN 2.9 g/dL (3.4-5.0); TOTAL BILIRUBIN 0.3 mg/dL (<0.1-1.0); TOTAL PROTEIN 6.2 g/dL (6.4-8.2)
[2019-10-13] MEDS ORDERED: KEFLEX500 M1 PO (14:42)
[2019-10-13 15:04] VITALS: BP 142/99
== END 2019-10-13 15:05 | disposition home or self-care (01) ==
LOC: M.INT 12:40 → M.ERS 12:40 → M.INT 15:05
PROVIDERS: Emergency Medicine
DX: Z45.2 Encounter for adjustment and management of vascular access device (principal); L03.90 Cellulitis, unspecified; F31.9 Bipolar disorder, unspecified; F41.8 Other specified anxiety disorders; I13.0 Hypertensive heart and chronic kidney disease with heart failure and stage 1 through stage 4 chronic kidney disease, or unspecified chronic kidney disease; N18.3 Chronic kidney disease, stage 3 (moderate); I50.9 Heart failure, unspecified; Z98.84 Bariatric surgery status; Z90.49 Acquired absence of other specified parts of digestive tract; Z98.890 Other specified postprocedural states; Z79.899 Other long term (current) drug therapy

== ENCOUNTER → 2019-10-13 | Outpatient (CLI) | payer OTHER ==
[~2019-10-13] MED LIST changes: +BACTRIM DS TAB1 EAC1 PO; +BENTYL 20 MG TA20 M1 PO; +TYLENOL WITH CO1 TA1 PO
[2019-10-13 10:30] VITALS: BP 141/98
--- NOTE | 2019-10-13 11:24 | NUR ---
ARRIVED AMBULATORY. MADE SELF COMFORTABLE IN RECLINER. PORT A CATH ACCESSED WITH OUT DIFFICULTY. GOOD BRISK BLOOD RETURN NOTED AND FLUSHED WITH EASE. INFUSION STARTED. PT COMPLAINT OF PAIN TO RIGHT NECK AT SITE OF PORT A CATH TUNNELING. AREA NOTED TO BE EDEMATIS AND RED, WARM AND PAINFUL TO TOUCH. VSS WNL TEMP WAS NOTED AT 99.4 [facility] ARE UNABLE TO SEE PATIENT AT THIS TIME AND REQUESTED PT BE SENT TO URGENT CARE OR ED WHEN INFUSION COMPLETED. PT UPDATED, VOICED UNDERSTANDING AND AGREED. INFUSION COMPLETED AND TOLERATED WELL. PORT FLUSHED AND PT DISCHARGE WITH INSTRUCTION TO SEE EVLUATION.
== END ==
LOC: M.INFUS 04:01
DX: E86.0 Dehydration (principal); K31.84 Gastroparesis

== ENCOUNTER → 2019-10-17 | Outpatient (CLI) | payer OTHER ==
[~2019-10-17] VITALS: Ht 167.6 cm; Wt 99.8 kg
[~2019-10-17] MED LIST changes: +BACTRIM DS TAB1 EAC1 PO
== END ==
LOC: M.INT 08:14
DX: T80.212A Local infection due to central venous catheter, initial encounter (principal)

== ENCOUNTER 2019-10-19 16:15 | Emergency (ER) | payer OTHER ==
[~2019-10-19] VITALS: Ht 167.6 cm; Wt 99.8 kg
[~2019-10-19 16:15] MED LIST changes: -BACTRIM DS TAB1 EAC1 PO
[2019-10-19] MEDS ORDERED: BACTRIM DS TAB1 EAC1 PO (16:30)
[2019-10-19 17:22] LABS: ABSOLUTE EOSINOPHILS 0.1 thou/uL (0.0-0.7); ABSOLUTE LYMPHOCYTES 2.1 thou/uL (0.8-5.3); ABSOLUTE MONOCYTES 0.3 thou/uL (0.0-1.2); ABSOLUTE NEUTROPHILS 2.2 thou/uL (1.6-8.1); BASOPHILS 0.7 %; HEMOGLOBIN 12.2 gm/dL (12.0-15.0); LYMPHOCYTES 44.8 %; MCH 29.5 pg (26.0-34.0); MCV 89.4 fL (80.0-100.0); MONOCYTES 6.6 %; MPV 7.9 fl. (7.2-11.1); NUCLEATED RBCS 0 /100WBC; PLATELET COUNT* 209 thou/uL (150-400); POLYS 45.9 %; RBC 4.14 mil/uL (4.20-5.00); RDW-CV 14.7 % (10.5-14.5); WBC 4.7 thou/uL (4.0-11.0)
[2019-10-19 17:30] LABS: CALCIUM 7.9 mg/dL (8.5-10.1); CREATININE 1.2 mg/dL (0.6-1.3); POTASSIUM 4.1 mmol/L (3.5-5.1)
[2019-10-19 17:35] LABS: TOTAL BILIRUBIN 0.2 mg/dL (<0.1-1.0); TOTAL PROTEIN 6.4 g/dL (6.4-8.2)
[2019-10-19] MEDS ORDERED: NORCO 5-325 TA1 EAC1 PO (17:48)
[2019-10-19 18:09] VITALS: BP 144/100
== END 2019-10-19 18:10 | disposition home or self-care (01) ==
LOC: M.ERS 16:15
PROVIDERS: Physician Assistant
DX: G89.18 Other acute postprocedural pain (principal); R07.89 Other chest pain; I13.0 Hypertensive heart and chronic kidney disease with heart failure and stage 1 through stage 4 chronic kidney disease, or unspecified chronic kidney disease; I50.9 Heart failure, unspecified; E28.2 Polycystic ovarian syndrome; N18.3 Chronic kidney disease, stage 3 (moderate); F31.9 Bipolar disorder, unspecified; Z90.49 Acquired absence of other specified parts of digestive tract; Z98.890 Other specified postprocedural states; Z85.850 Personal history of malignant neoplasm of thyroid; Z87.891 Personal history of nicotine dependence; Z91.048 Other nonmedicinal substance allergy status; Z88.8 Allergy status to other drugs, medicaments and biological substances

== ENCOUNTER → 2019-10-20 | Outpatient (CLI) | payer OTHER ==
[~2019-10-20] MED LIST changes: +BACTRIM DS TAB1 EAC1 PO; +TYLENOL WITH CO1 TA1 PO
[2019-10-20 11:00] VITALS: BP 132/72
--- NOTE | 2019-10-20 12:36 | NUR ---
RIGHT CHEST PORT A CATH HAS BEEN REMOVED RELATED TO INFECTION PT SCHEDULED TO HAVE NEW PORT PLACED NEXT WEEK. IV PLACED AND INFUSION COMPLETED AND TOLERATED WELL. ROC NEEDS AT DISCHARGE.
== END ==
LOC: M.INFUS 03:47
DX: E86.0 Dehydration (principal); K31.84 Gastroparesis

== ENCOUNTER 2019-10-25 19:17 | Emergency (ER) | payer OTHER ==
[~2019-10-25] VITALS: Ht 167.6 cm; Wt 99.8 kg
[~2019-10-25 19:17] MED LIST changes: -TYLENOL WITH CO1 TA1 PO
[2019-10-25 19:24] VITALS: BP 144/96
[2019-10-25] MEDS ORDERED: KEFLEX500 M1 PO (19:36)
[2019-10-25] MEDS ORDERED: TYLENOL WITH CO1 TA1 PO (19:36)
== END 2019-10-25 19:50 | disposition home or self-care (01) ==
LOC: M.ERS 19:17
DX: K08.89 Other specified disorders of teeth and supporting structures (principal); F31.9 Bipolar disorder, unspecified; F41.9 Anxiety disorder, unspecified; E83.51 Hypocalcemia; I50.9 Heart failure, unspecified; I13.0 Hypertensive heart and chronic kidney disease with heart failure and stage 1 through stage 4 chronic kidney disease, or unspecified chronic kidney disease; N18.9 Chronic kidney disease, unspecified; F43.10 Post-traumatic stress disorder, unspecified; K31.89 Other diseases of stomach and duodenum; Z90.49 Acquired absence of other specified parts of digestive tract; Z98.84 Bariatric surgery status; Z88.6 Allergy status to analgesic agent; Z88.8 Allergy status to other drugs, medicaments and biological substances; Z79.899 Other long term (current) drug therapy

== ENCOUNTER 2019-10-27 21:19 | Emergency (ER) | payer OTHER ==
[~2019-10-27] VITALS: Ht 167.6 cm; Wt 96.6 kg
[~2019-10-27 21:19] MED LIST changes: -ACETAMINOPHEN500 M1 PO; -ASA81BEC PO; -LISINOPRIL2.5 MG PO; -MAGOX 400400 MG PO; -ROXICODONE5 M2 PO
[2019-10-27 23:59] LABS: ABSOLUTE EOSINOPHILS 0.1 thou/uL (0.0-0.7); ABSOLUTE LYMPHOCYTES 1.6 thou/uL (0.8-5.3); ABSOLUTE MONOCYTES 0.3 thou/uL (0.0-1.2); ABSOLUTE NEUTROPHILS 5.6 thou/uL (1.6-8.1); BASOPHILS 0.2 %; EOSINOPHILS 1.8 %; HEMOGLOBIN 14.1 gm/dL (12.0-15.0); LYMPHOCYTES 20.7 %; MCHC 32.1 g/dL (28.0-37.0); MCV 90.2 fL (80.0-100.0); MPV 7.7 fl. (7.2-11.1); NUCLEATED RBCS 0 /100WBC; PLATELET COUNT* 210 thou/uL (150-400); POLYS 73.3 %; RBC 4.87 mil/uL (4.20-5.00); RDW-CV 14.9 % (10.5-14.5); WBC 7.6 thou/uL (4.0-11.0)
[2019-10-28 00:18] LABS: BE -2.9 mmol/L (-2 to +3); PCO2 VENOUS 42.9 mmHg (41.0-51.0); PO2 VENOUS 65.6 mmHg (35.0-45.0)
[2019-10-28 00:40] LABS: CALCIUM 8.8 mg/dL (8.5-10.1); CREATININE 1.6 mg/dL (0.6-1.3); POTASSIUM 4.4 mmol/L (3.5-5.1)
[2019-10-28 00:45] LABS: MAGNESIUM 1.9 mg/dL (1.8-2.4); TOTAL BILIRUBIN 0.2 mg/dL (<0.1-1.0); TOTAL PROTEIN 8.3 g/dL (6.4-8.2)
[2019-10-28] MEDS ORDERED: HYDROCODON-ACE1 EAC7 PO (00:57)
[2019-10-28 01:13] VITALS: BP 120/70
[2019-11-01] MEDS ORDERED: MAGOX 400400 MG PO (11:11)
== END 2019-10-28 01:13 | disposition home or self-care (01) ==
LOC: M.ERS 21:19
PROVIDERS: Personal Emergency Response Attendant
DX: Z48.01 Encounter for change or removal of surgical wound dressing (principal); T82.848A Pain due to vascular prosthetic devices, implants and grafts, initial encounter; R07.89 Other chest pain; I13.0 Hypertensive heart and chronic kidney disease with heart failure and stage 1 through stage 4 chronic kidney disease, or unspecified chronic kidney disease; N18.9 Chronic kidney disease, unspecified; I50.9 Heart failure, unspecified; F31.9 Bipolar disorder, unspecified; F41.9 Anxiety disorder, unspecified; K31.84 Gastroparesis; E83.51 Hypocalcemia; Z88.6 Allergy status to analgesic agent; Z88.8 Allergy status to other drugs, medicaments and biological substances; Z79.899 Other long term (current) drug therapy; Z79.84 Long term (current) use of oral hypoglycemic drugs

== ENCOUNTER → 2019-10-27 | Outpatient (CLI) | payer OTHER ==
[~2019-10-27] VITALS: Ht 167.6 cm; Wt 96.6 kg
[~2019-10-27] MED LIST changes: +ACETAMINOPHEN500 M1 PO; +ASA81BEC PO; +LISINOPRIL2.5 MG PO; +MAGOX 400400 MG PO; +ROXICODONE5 M2 PO; +TYLENOL WITH CO1 TA1 PO
[2019-10-27 07:50] VITALS: BP 161/90
[2019-10-27 08:05] LABS: HEMATOCRIT 40.8 % (37.0-47.0); HEMOGLOBIN 13.3 gm/dL (12.0-15.0); MCH 28.8 pg (26.0-34.0); MCHC 32.6 g/dL (28.0-37.0); MCV 88.3 fL (80.0-100.0); MPV 7.4 fl. (7.2-11.1); RBC 4.61 mil/uL (4.20-5.00); RDW-CV 14.8 % (10.5-14.5); WBC 5.5 thou/uL (4.0-11.0)
[2019-10-27 08:09] LABS: CALCIUM 8.2 mg/dL (8.5-10.1); CREATININE 1.3 mg/dL (0.6-1.3); POTASSIUM 3.7 mmol/L (3.5-5.1)
[2019-10-27 08:12] LABS: APTT 27.8 Seconds (25.0-31.3); PROTIME 10.4 Seconds (9.20-11.50)
== END | disposition home or self-care (01) ==
LOC: M.INT 01:56
PROVIDERS: Radiology Diagnostic Radiology
DX: Z45.2 Encounter for adjustment and management of vascular access device (principal); E86.0 Dehydration; I13.0 Hypertensive heart and chronic kidney disease with heart failure and stage 1 through stage 4 chronic kidney disease, or unspecified chronic kidney disease; N18.3 Chronic kidney disease, stage 3 (moderate); I50.9 Heart failure, unspecified; F31.9 Bipolar disorder, unspecified; F41.9 Anxiety disorder, unspecified; Z98.890 Other specified postprocedural states; Z79.899 Other long term (current) drug therapy; Z98.84 Bariatric surgery status; Z90.49 Acquired absence of other specified parts of digestive tract; Z87.891 Personal history of nicotine dependence

== ENCOUNTER 2019-10-28 10:22 | Emergency (ER) | payer OTHER ==
[~2019-10-28] VITALS: Ht 167.6 cm; Wt 96.6 kg
[2019-10-28 12:01] VITALS: BP 166/113
== END 2019-10-28 12:03 | disposition home or self-care (01) ==
LOC: M.ERS 10:22
DX: G89.29 Other chronic pain (principal); R07.89 Other chest pain; F31.9 Bipolar disorder, unspecified; F41.9 Anxiety disorder, unspecified; E83.51 Hypocalcemia; I13.0 Hypertensive heart and chronic kidney disease with heart failure and stage 1 through stage 4 chronic kidney disease, or unspecified chronic kidney disease; N18.9 Chronic kidney disease, unspecified; I50.9 Heart failure, unspecified; K31.84 Gastroparesis; F43.10 Post-traumatic stress disorder, unspecified; Z90.49 Acquired absence of other specified parts of digestive tract; Z88.6 Allergy status to analgesic agent; Z88.8 Allergy status to other drugs, medicaments and biological substances; Z79.899 Other long term (current) drug therapy; Z79.84 Long term (current) use of oral hypoglycemic drugs; E89.0 Postprocedural hypothyroidism; Z98.84 Bariatric surgery status

== ENCOUNTER 2019-10-31 21:52 | Observation (INO) | payer OTHER ==
[~2019-10-31] VITALS: Ht 167.6 cm; Wt 99.3 kg
[2019-10-31 22:02] VITALS: BP 108/63
[2019-10-31 23:15] LABS: ABSOLUTE EOSINOPHILS 0.2 thou/uL (0.0-0.7); ABSOLUTE MONOCYTES 0.3 thou/uL (0.0-1.2); ABSOLUTE NEUTROPHILS 2.8 thou/uL (1.6-8.1); BASOPHILS 0.7 %; EOSINOPHILS 3.2 %; HEMATOCRIT 30.6 % (37.0-47.0); HEMOGLOBIN 10.2 gm/dL (12.0-15.0); LYMPHOCYTES 37.4 %; MCH 29.8 pg (26.0-34.0); MCHC 33.4 g/dL (28.0-37.0); MCV 89.2 fL (80.0-100.0); MONOCYTES 5.5 %; MPV 8.4 fl. (7.2-11.1); NUCLEATED RBCS 0 /100WBC; PLATELET COUNT* 184 thou/uL (150-400); POLYS 53.2 %; RBC 3.43 mil/uL (4.20-5.00); RDW-CV 15.3 % (10.5-14.5); WBC 5.2 thou/uL (4.0-11.0)
[2019-10-31 23:17] LABS: CALCIUM 7.3 mg/dL (8.5-10.1); CREATININE 1.2 mg/dL (0.6-1.3); POTASSIUM 3.8 mmol/L (3.5-5.1)
[2019-10-31 23:26] LABS: PROTIME 9.8 Seconds (9.20-11.50)
[2019-10-31 23:30] LABS: ALBUMIN 2.6 g/dL (3.4-5.0); TOTAL BILIRUBIN 0.1 mg/dL (<0.1-1.0); TOTAL PROTEIN 5.5 g/dL (6.4-8.2)
[2019-11-01 00:41] LABS: ESR (SEDRATE) 9 mm/hr (0-20)
[2019-11-01 02:11] LABS: URINE BILIRUBIN NEGATIVE (Negative); URINE BLOOD NEGATIVE (Negative); URINE CLARITY CLEAR; URINE COLOR YELLOW; URINE GLUCOSE-RANDOM NEGATIVE (Negative); URINE KETONES NEGATIVE (Negative); URINE LEUKOCYTES-REFLEX NEGATIVE (Negative); URINE NITRITE-REFLEX NEGATIVE (Negative); URINE PROTEIN NEGATIVE (Negative); URINE SPECIFIC GRAVITY <= 1.005 (1.005-1.030); URINE UROBILINOGEN 0.2 E.U./dl (0.2-1.0)
[2019-11-01 02:17] LABS: AMP/METHAMP Negative (Negative); BARBITURATES Negative (Negative); BENZODIAZEPINES Negative (Negative); COCAINE Negative (Negative); METHADONE Negative (Negative); OPIATES POSITIVE (Negative); PCP Negative (Negative); THC POSITIVE (Negative)
[2019-11-01 03:21] VITALS: BP 99/55
[2019-11-01 07:44] VITALS: BP 104/60
[2019-11-01 08:00] VITALS: BP 121/82
[2019-11-01 09:38] LABS: CALCIUM 7.4 mg/dL (8.5-10.1); CREATININE 1.1 mg/dL (0.6-1.3); MAGNESIUM 1.7 mg/dL (1.8-2.4); POTASSIUM 4.4 mmol/L (3.5-5.1)
--- NOTE | 2019-11-01 10:52 | EKG ---
[place] [address] ELECTROCARDIOGRAM REPORT Name: DOROTEO BHAKTA Room: [address]#: [id number] Admission: 10/31/19 Attend Phys: Nichole Hdz, Discharge: Date of : 76 Date of Service: 10/31/19 2249 Report #: [id number] THIS REPORT FOR: //name// [facility] ED Test Date: 2019-10-31 Test Time: 22:49:56 Pat Name: DOROTEO BHAKTA Department: Room: [facility] Gender: F Mercury Washer: : 1980 Requested By: Joanne Vasquez Order Number: [id number] MD: Triston Caruso Measurements Intervals [place] Rate: 44 P: 27 FL: 164 QRS: 32 QRSD: 111 T: 22 QT: 488 QTc: 418 Interpretive Statements Sinus bradycardia Borderline T abnormalities, anterior leads Compared to ECG 10/09/2019 10:53:48 Sinus rhythm no longer present Electronically Signed On 11-01-2019 10:51:45 CDT by Triston Caruso [email or web address] <ELECTRONICALLY SIGNED> By: Triston Caruso MD, FACC 11/01/19 1051 2249 2249 Triston Caruso MD, FAC /EPI
--- NOTE | 2019-11-01 10:53 | EKG ---
[place] [address] ELECTROCARDIOGRAM REPORT Name: DOROTEO BHAKTA Room: [address]R.#: [id number] Admission: 10/31/19 Attend Phys: Nichole Hdz, Discharge: Date of : 76 Date of Service: 10/31/19 2341 Report #: [id number] THIS REPORT FOR: //name// [facility] ED Test Date: 2019-10-31 Test Time: 23:41:57 Pat Name: DOROTEO BHAKTA Department: Room: [facility] Gender: F Ornament Stitcher: YAO : 1980 Requested By: Joanne Vasquez Order Number: [id number] MD: Triston Caruso Measurements Intervals [place] Rate: 47 P: 38 MT: 161 QRS: 35 QRSD: 111 T: 25 QT: 497 QTc: 440 Interpretive Statements Sinus bradycardia Baseline wander in lead(s) II Electronically Signed On 11-01-2019 10:52:07 CDT by Triston Caruso [email or web address] <ELECTRONICALLY SIGNED> By: Triston Caruso MD, [facility] 11/01/19 1052 2341 40 Triston Caruso MD, FAC /EPI
[2019-11-01 11:00] VITALS: BP 103/61; BP 71/49; BP 90/55
[2019-11-01] MEDS ORDERED: MAGOX 400400 MG PO ×2 (11:11)
[2019-11-01 12:00] VITALS: BP 71/49
--- NOTE | 2019-11-01 17:00 | NUR ---
ASSUMED PT CARE AT 0750 FROM ER. ASSESSMENT COMPLETED CHARTED. ABLE TO MAKE NEEDS KNOWN. C/O NECK AND BACK PAIN. RESTING IN BED MOST OF THE DAY. IV FLUIDS GIVEN PER EMAR. DISCHARGE APPROVED ALSO FOR TODAY AFTER ELECTROLYTE REPLACEMENT AND FLUID BOLUS. DISCHARGE PAPERWORK WENT OVER WITH PT. IV AND HEART MONITOR REMOVED. UP WITH SBA. PT LEFT IN WHEELCHAIR WITH STAFF TO FRONT DOOR AT AROUND 1615. ALL BELONGINGS TAKEN WITH PT.
== END 2019-11-01 16:15 | disposition home or self-care (01) ==
LOC: M.ERS 21:52 → M.2W 23:48 → M.TBA-ER 23:48 → M.2W 23:48
PROVIDERS: Emergency Medicine; Internal Medicine; ADMIT Internal Medicine
DX: R55 Syncope and collapse (principal); F31.9 Bipolar disorder, unspecified; R00.1 Bradycardia, unspecified; F43.10 Post-traumatic stress disorder, unspecified; F41.9 Anxiety disorder, unspecified; E83.51 Hypocalcemia; I11.0 Hypertensive heart disease with heart failure; I50.30 Unspecified diastolic (congestive) heart failure; F17.210 Nicotine dependence, cigarettes, uncomplicated; F15.10 Other stimulant abuse, uncomplicated; G47.00 Insomnia, unspecified; K31.84 Gastroparesis; K90.9 Intestinal malabsorption, unspecified; E66.01 Morbid (severe) obesity due to excess calories

== ENCOUNTER 2019-11-04 11:50 | Inpatient (IN) | payer OTHER ==
[~2019-11-04] VITALS: Ht 167.6 cm; Wt 102.1 kg
[~2019-11-04 11:50] MED LIST changes: +MAGOX 400400 MG PO
[2019-11-04 11:53] VITALS: BP 105/56
[2019-11-04 12:28] LABS: ABSOLUTE EOSINOPHILS 0.2 thou/uL (0.0-0.7); ABSOLUTE LYMPHOCYTES 1.4 thou/uL (0.8-5.3); ABSOLUTE MONOCYTES 0.2 thou/uL (0.0-1.2); ABSOLUTE NEUTROPHILS 2.6 thou/uL (1.6-8.1); BASOPHILS 0.9 %; EOSINOPHILS 4.1 %; HEMATOCRIT 34.5 % (37.0-47.0); HEMOGLOBIN 11.2 gm/dL (12.0-15.0); LYMPHOCYTES 32.1 %; MCH 29.4 pg (26.0-34.0); MCHC 32.5 g/dL (28.0-37.0); MCV 90.6 fL (80.0-100.0); MONOCYTES 4.6 %; MPV 8.2 fl. (7.2-11.1); NUCLEATED RBCS 0 /100WBC; PLATELET COUNT* 187 thou/uL (150-400); POLYS 58.3 %; RBC 3.81 mil/uL (4.20-5.00); RDW-CV 15.8 % (10.5-14.5); WBC 4.4 thou/uL (4.0-11.0)
[2019-11-04 12:40] LABS: CALCIUM 7.7 mg/dL (8.5-10.1); CREATININE 1.1 mg/dL (0.6-1.3); POTASSIUM 3.7 mmol/L (3.5-5.1)
[2019-11-04 12:51] LABS: ALBUMIN 2.5 g/dL (3.4-5.0); MAGNESIUM 1.3 mg/dL (1.8-2.4); TOTAL BILIRUBIN 0.2 mg/dL (<0.1-1.0); TOTAL PROTEIN 5.6 g/dL (6.4-8.2)
[2019-11-04 15:25] LABS: AMP/METHAMP Negative (Negative); BARBITURATES Negative (Negative); BENZODIAZEPINES Negative (Negative); COCAINE Negative (Negative); METHADONE Negative (Negative); OPIATES POSITIVE (Negative); PCP Negative (Negative); THC POSITIVE (Negative)
[2019-11-04 18:23] VITALS: BP 128/75
[2019-11-04 20:00] VITALS: BP 133/91
[2019-11-04] MEDS ORDERED: COMPRO25 MG RECTAL (20:16)
[2019-11-05] VITALS: BP 133/81
[2019-11-05 04:00] VITALS: BP 135/81
--- NOTE | 2019-11-05 04:44 | NUR ---
ASSUMED CARE OF PT AFTER REPORT AT 1930. PT A&OX4. VSS. ADMISSION HISTORY & PHYSICAL ASSESSMENT COMPLETED AND CHARTED. ORIENTED TO ROOM & CALL LIGHT. PT ON RA. PT TRACING SR/SB ON TELE. PT UPSTANDBY TO RESTROOM. NIH CHARTED. PT COMPLAINED OF CHEST PAIN-MED GIVEN PER MAR. CALL LIGHT WITHIN REACH.
[2019-11-05 06:08] LABS: ABSOLUTE EOSINOPHILS 0.2 thou/uL (0.0-0.7); ABSOLUTE LYMPHOCYTES 2.3 thou/uL (0.8-5.3); ABSOLUTE MONOCYTES 0.3 thou/uL (0.0-1.2); ABSOLUTE NEUTROPHILS 2.2 thou/uL (1.6-8.1); BASOPHILS 0.8 %; EOSINOPHILS 3.7 %; HEMATOCRIT 35.3 % (37.0-47.0); HEMOGLOBIN 11.5 gm/dL (12.0-15.0); LYMPHOCYTES 45.4 %; MCHC 32.4 g/dL (28.0-37.0); MCV 89.3 fL (80.0-100.0); MONOCYTES 5.6 %; MPV 8.5 fl. (7.2-11.1); NUCLEATED RBCS 0 /100WBC; PLATELET COUNT* 195 thou/uL (150-400); POLYS 44.5 %; RBC 3.96 mil/uL (4.20-5.00)
[2019-11-05 06:15] LABS: ALBUMIN 2.5 g/dL (3.4-5.0); CALCIUM 7.3 mg/dL (8.5-10.1); CREATININE 1.1 mg/dL (0.6-1.3); POTASSIUM 3.8 mmol/L (3.5-5.1); TOTAL BILIRUBIN 0.2 mg/dL (<0.1-1.0); TOTAL PROTEIN 5.5 g/dL (6.4-8.2)
[2019-11-05 08:00] VITALS: BP 153/81
--- NOTE | 2019-11-05 11:20 | EKG ---
[place] [address] ELECTROCARDIOGRAM REPORT Name: DOROTEO BHAKTA Room: [address] ADM IN .R.#: [id number] Admission: 11/04/19 Attend Phys: Yariel Henry Discharge: Date of : 76 Date of Service: 11/04/19 1220 Report #: [id number] THIS REPORT FOR: //name// [facility] ED Test Date: 2019-11-04 Test Time: 12:20:51 Pat Name: DOROTEO BHAKTA Department: Room: [address] Gender: F Heel Breaster: : 1980 Requested By: Shalom Loera Order Number: [id number] Caroline MD: Carlos Loera Measurements Intervals [place] Rate: 50 P: 16 ID: 166 QRS: 40 QRSD: 103 T: 34 QT: 438 QTc: 400 Interpretive Statements Sinus rhythm Compared to ECG 10/31/2019 23:41:57 Sinus bradycardia no longer present Electronically Signed On 11-05-2019 11:19:29 CDT by Carlos Loera [email or web address] <ELECTRONICALLY SIGNED> By: Shalom Loera MD, FAC 11/05/19 1119 1220 1220 Shalom Loera MD, [facility] /EPI
--- NOTE | 2019-11-05 11:20 | EKG ---
[place] [address] ELECTROCARDIOGRAM REPORT Name: DOROTEO BHAKTA Room: [address] ADM IN [facility].#: [id number] Admission: 11/04/19 Attend Phys: Yariel Henry Discharge: Date of : 76 Date of Service: 11/04/19 1153 Report #: [id number] THIS REPORT FOR: //name// [facility] ED Test Date: 2019-11-04 Test Time: 11:53:59 Pat Name: DOROTEO BHAKTA Department: Room: [facility] Gender: F Environmental Engineering Intern: TOSHIA : 1980 Requested By: Rian Osborn Order Number: [id number] MD: Carlos Loera Measurements Intervals [place] Rate: 61 P: 3 NM: 148 QRS: 43 QRSD: 103 T: 33 QT: 406 QTc: 409 Interpretive Statements Sinus rhythm Compared to ECG 10/31/2019 23:41:57 Sinus bradycardia no longer present Electronically Signed On 11-05-2019 11:19:16 CDT by Carlos Loera [email or web address] <ELECTRONICALLY SIGNED> By: Shalom Loera MD, [facility] 11/05/19 1119 1153 1153 Shalom Loera MD, [facility] /EPI
[2019-11-05 12:27] VITALS: BP 145/93
[2019-11-05 14:04] LABS: CHOLESTEROL 105 mg/dL (<200); HDL CHOLESTEROL 40 mg/dL (>40); LDL CHOLESTEROL 36 mg/dL (<100); SERUM ASSESSMENT CLEAR; TC:HDL 2.6 Ratio (Not establshd); TRIGLYCERIDE 145 mg/dL (<150); VLDL 29 mg/dL (<40)
[2019-11-05 16:22] VITALS: BP 149/95
[2019-11-05 19:20] VITALS: BP 150/103
--- NOTE | 2019-11-05 20:45 | NUR ---
PT C/O PAIN TO CHEST DESCRIBED PRESSURE 9/10 THAT IS NOT RELIEVED WITH ANALGESICS.NO NAUSEA.VSS ON RA.SR ON MONITOR.PT PROGRESSING TOWARDS GOALS. CLWR
[2019-11-06] VITALS: BP 173/108
[2019-11-06 04:03] VITALS: BP 164/84
[2019-11-06 04:05] LABS: ABSOLUTE EOSINOPHILS 0.2 thou/uL (0.0-0.7); ABSOLUTE LYMPHOCYTES 2.1 thou/uL (0.8-5.3); ABSOLUTE MONOCYTES 0.3 thou/uL (0.0-1.2); ABSOLUTE NEUTROPHILS 1.7 thou/uL (1.6-8.1); BASOPHILS 0.6 %; EOSINOPHILS 4.3 %; HEMATOCRIT 33.4 % (37.0-47.0); HEMOGLOBIN 11.1 gm/dL (12.0-15.0); LYMPHOCYTES 48.7 %; MCH 29.9 pg (26.0-34.0); MCHC 33.3 g/dL (28.0-37.0); MCV 89.7 fL (80.0-100.0); MONOCYTES 6.4 %; MPV 8.2 fl. (7.2-11.1); NUCLEATED RBCS 0 /100WBC; PLATELET COUNT* 179 thou/uL (150-400); RBC 3.72 mil/uL (4.20-5.00); RDW-CV 15.3 % (10.5-14.5); WBC 4.2 thou/uL (4.0-11.0)
[2019-11-06 04:23] LABS: ALBUMIN 2.5 g/dL (3.4-5.0); CALCIUM 7.1 mg/dL (8.5-10.1); POTASSIUM 3.9 mmol/L (3.5-5.1); TOTAL BILIRUBIN 0.2 mg/dL (<0.1-1.0); TOTAL PROTEIN 5.4 g/dL (6.4-8.2)
[2019-11-06 08:00] VITALS: BP 143/98
[2019-11-06] MEDS ORDERED: ROXICODONE5 M2 PO (13:44)
[2019-11-06] MEDS ORDERED: ACETAMINOPHEN500 M1 PO (13:46)
[2019-11-06 14:00] VITALS: BP 143/98
--- NOTE | 2019-11-06 14:07 | EKG ---
[place] [address] ELECTROCARDIOGRAM REPORT Name: DOROTOE BHAKTA Room: [address] ADM [place] .R.#: [id number] Admission: 11/04/19 Attend Phys: Yariel Henry Discharge: Date of : 76 Date of Service: 11/04/191925 Report #: [id number] THIS REPORT FOR: //name// [facility] Test Date: 2019-11-04 Test Time: 19:26:15 Pat Name: DOROTEO BHAKTA Department: Room: [address] Gender: F Orthopedic Nurse Practitioner: KREED7 : 1980 Requested By: Yariel Henry Order Number: [id number] Caroline MD: Triston Caruso Measurements Intervals [place] Rate: 43 P: 20 FL: 146 QRS: 51 QRSD: 107 T: 36 QT: 481 QTc: 407 Interpretive Statements Sinus bradycardia Compared to ECG 11/04/2019 12:20:51 no change Electronically Signed On 11-06-2019 14:05:48 CDT by Triston Caruso [email or web address] <ELECTRONICALLY SIGNED> By: Triston Caruso MD, [facility] 11/06/19 1405 1926 25 Triston Caruso MD, [facility] /EPI
[2019-11-06 16:44] VITALS: BP 154/90
[2019-11-06 17:07] LABS: T3 UPTAKE 21 % (24-39)
--- NOTE | 2019-11-06 18:48 | NUR ---
VSS, SB TO SINUS RHYTHM ON TELE, A&OX4, ROOM AIR, LEFT SIDE PORTACATH. STAYING FOR BUBBLE STUDY TOMORROW. HOURLY ROUNDING PERFORMED, POSSESSIONS AND CALL LIGHT WITHIN REACH. REPORTS CHRONIC BACK PAIN. COMPLEX BEHAVIOR PATIENT, SBA/AMBULATES IN ROOM
[2019-11-06 19:30] VITALS: BP 165/99
[2019-11-07 00:20] VITALS: BP 169/93
[2019-11-07 04:43] VITALS: BP 159/96
[2019-11-07 06:46] LABS: ABSOLUTE EOSINOPHILS 0.3 thou/uL (0.0-0.7); ABSOLUTE LYMPHOCYTES 2.1 thou/uL (0.8-5.3); ABSOLUTE MONOCYTES 0.3 thou/uL (0.0-1.2); ABSOLUTE NEUTROPHILS 2.2 thou/uL (1.6-8.1); BASOPHILS 0.9 %; EOSINOPHILS 6.3 %; HEMATOCRIT 33.7 % (37.0-47.0); HEMOGLOBIN 11.2 gm/dL (12.0-15.0); LYMPHOCYTES 42.1 %; MCH 29.7 pg (26.0-34.0); MCHC 33.3 g/dL (28.0-37.0); MCV 89.2 fL (80.0-100.0); MONOCYTES 5.9 %; NUCLEATED RBCS 0 /100WBC; PLATELET COUNT* 185 thou/uL (150-400); POLYS 44.8 %; RBC 3.79 mil/uL (4.20-5.00); WBC 4.9 thou/uL (4.0-11.0)
[2019-11-07 07:14] LABS: ALBUMIN 2.5 g/dL (3.4-5.0); POTASSIUM 4.1 mmol/L (3.5-5.1); TOTAL BILIRUBIN 0.2 mg/dL (<0.1-1.0); TOTAL PROTEIN 5.6 g/dL (6.4-8.2)
[2019-11-07 07:30] VITALS: BP 136/88
--- NOTE | 2019-11-07 07:48 | NUR ---
Pt is A&O. Resides at home with her dtr. Independent. Pt has a cane that she can use if needed. Hx of [facility]. No hx of SNF. Pt had a stress test yesterday, further testing to be completed today. Goal is home at [place]. Supportive family.
[2019-11-07 11:45] VITALS: BP 139/94
--- NOTE | 2019-11-07 13:12 | 2DMMODE ---
[place] [address] 2 D/M-MODE ECHOCARDIOGRAM Name: DOROTEO BHAKTA Fer Room: [address] IN [place]ena.#: [id number] Admission: 11/04/19 Attend Phys: Yariel Henry Discharge: Date of : 76 Date of Service: 11/07/19 1311 Report #: [id number] THIS REPORT FOR: cc: Bryan Dominguez,Bryan Samaniego,Triston Schmitz MD [facility] ~ APPROVED REPORT Study performed: 11/07/2019 10:00:08 EXAM: Limited 2D Echocardiogram with agitated saline contrast Patient Location: In-Patient BSA: 2.10 HR: 57 bpm BP: 136/88 mmHg Rhythm: NSR Other Information Study Quality: Good Indications CVA/TIA Echo Enhancing Agent Indication: Rule out Shunt Agent(s) / Amount(s) Used: Agitated Saline 10 cc Volumes Left Atrial Volume (Systole) LA ESV Index: 30.40 mL/m2 Left Ventricle The left ventricle is normal size. There is normal LV segmental wall motion. There is normal left ventricular wall thickness. The left ventricular systolic function is normal. The left ventricular ejection fraction is within the normal range. LVEF is 55-60%. Right Ventricle The right ventricle is normal size. The right ventricular systolic function is normal. Atria The left atrium size is normal. The interatrial septum is intact with [facility] [address] [place] [address] 2 D/M-MODE ECHOCARDIOGRAM Name: DOROTEO BHAKTA Fer Room: [address] IN M.R.#: [id number] Admission: 11/04/19 Attend Phys: Yariel Henry Discharge: Date of : 76 Date of Service: 11/07/19 1311 Report #: [id number] no evidence for an atrial septal defect. The right atrium size is normal. Aortic Valve The aortic valve is normal in structure. Mitral Valve The mitral valve is normal in structure. Tricuspid Valve The tricuspid valve is normal in structure. Pulmonic Valve The pulmonary valve is normal in structure. Great Vessels The aortic root is normal in size. IVC is normal in size and collapses >50% with inspiration. Pericardium There is no pericardial effusion. <Conclusion> LVEF is 55-60%. The interatrial septum is intact with no evidence for an atrial septal defect. <ELECTRONICALLY SIGNED> By: Triston Caruso MD, FACC 11/07/191310 10 1311 Triston Caruso MD, FACC /INF
[2019-11-07] MEDS ORDERED: ASA81BEC PO (13:35)
[2019-11-07] MEDS ORDERED: LISINOPRIL2.5 MG PO (13:36)
--- NOTE | 2019-11-07 16:03 | CON ---
[address] [address] CONSULTATION Name: YONYDOROTEO L Room: [address] IN M.R.#: [id number] Admission: 11/04/19 Attend Phys: Claudine Vazquez Discharge: Date of : 76 Report #: [id number] THIS REPORT FOR: //name// cc: Bryan Dominguez Steve T. DO ~ THIS REPORT FOR: //name// CC: Bryan Henry CARDIOLOGY CONSULTATION HISTORY OF PRESENT ILLNESS: I was asked by Dr. Henry to see this 38-year-old white female in cardiology consultation for evaluation and treatment of chest pain as well as bradycardia and orthostatic hypotension. Additionally, this lady has bipolar affective disorder, PTSD, social anxiety disorder and possible drug abuse. She had urine positive for opiates as well as marijuana on this admission and on subsequent admission last week. She had similar symptoms last week, although I am not sure, she had the chest pain. She is on a large number of psychotropic medications. She was apparently on an even larger number of medications last week, she had been on a beta brock at home and that was stopped. She says she stopped it, although I am not sure how reliable she is given the number of drugs and the possibility of confusing one drug for another. She is currently on 17 medications and I believe she was on several more before. She developed orthostatic hypotension symptoms again recently and came to the Emergency Room yesterday. She was dizzy and lightheaded and weak. She passed out last Wednesday when she has this and she stands up and tries to walk she gets pain in her chest as well as her left shoulder and left arm with numbness in the arm as well. She describes the pain as a pressure. It was a 6 of 10. The pain persisted until she sits down, then it goes away. When she was here previously, she was felt to be dehydrated and was hydrated and sent home. She did have a bit of a workup, however. She does have shortness of breath when she has this pain and she had nausea yesterday as well. She also has some upper abdominal pain, particularly right upper quadrant. She has right upper quadrant tenderness. She has had her gallbladder removed. She has nausea with that as well. She had several of those episodes of pain. Her troponins were negative. She had an echo when she was here last that showed normal left ventricular systolic function as well as normal diastolic function and she had only mild mitral regurgitation, otherwise it was a normal echo. Her EKG when she first came to the ER demonstrated a heart rate of 61 and was a normal EKG. She had 2 other ones, one of which the heart rate was 43 and was otherwise normal. There was another one with a heart rate of 50 that was also otherwise normal. There was minimal inferior ST segment elevation called by the computer on the EKG that had a heart rate of 43. It is not impressive; however, looks like it is at most 0.5 mm and it was rather flat ST segment elevation that was not convex upward. She feels fairly well today and is not bradycardic or hypotensive today. I believe she did get fluids. She has not been having diarrhea. [address] [address] CONSULTATION Name: DOROTEO HBAKTA Room: [address] IN M.R.#: [id number] Admission: 11/04/19 Attend Phys: Claudine Vazquez Discharge: Date of : 76 Report #: [id number] PAST MEDICAL HISTORY: As described above. ALLERGIES: ADDITIONALLY SHE IS ALLERGIC TO TAPE, NSAIDS, SCOPOLAMINE AND SUDAFED. HOME MEDICATIONS: Currently include albuterol p.r.n., amitriptyline 25 mg at bedtime p.r.n., calcitriol 2 tablets daily, vitamin D 1 cap weekly of 1250 mcg, gabapentin 400 mg t.i.d., Lamictal 200 mg b.i.d., levothyroxine 150 mcg daily, Linzess 290 mcg daily, magnesium oxide 400 mg daily, metformin 500 mg b.i.d., Sprintec 1 tablet daily, Protonix 40 mg b.i.d., potassium 10 mEq daily, Compazine 25 mg suppository daily as needed, Topamax 25 mg b.i.d., Trintellix 20 mg daily and Ambien 10 mg at bedtime p.r.n. Today, I had stopped the amitriptyline and the Compazine as both of those can cause orthostatic hypotension. Others of these psychotropic meds should be investigated for the possibility of bradycardia and hypotension. It is possible that her symptoms are drug induced. Also, her thyroid needs to be investigated. Check free T4, T3 and TSH. She is on metformin for PCOS. REVIEW OF SYSTEMS: Positive for weakness, palpitations, chest discomfort, shortness of breath, passing out, thyroid trouble, peptic ulcer disease, anemia, history of thyroid cancer, seasonal allergies, medical allergies, bipolar affective disorder, social anxiety disorder, Lyme arthritis and wearing glasses. Otherwise, review of systems is negative for some 35 different complaints in 14 different system categories. Please see our review of system form for details and negatives in review of systems. SOCIAL HISTORY: She is . 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 She does not smoke, drink or use illegal drugs. FAMILY HISTORY: Her paternal grandfather had an MD at age 53. PHYSICAL EXAMINATION: GENERAL: She presents as a well-developed, well-nourished white female, in no acute distress. VITAL SIGNS: Her pulse is 66 and regular, blood pressure was 110/80, respirations are 16 and regular and she is clinically afebrile. HEENT: Her head was atraumatic. Eyes clear. NECK: Supple. There is no jugular venous distention or hepatojugular reflux. Thyroid is not enlarged. There is no adenopathy. SKIN: Warm and dry. Mucous membranes are moist. LUNGS: Clear to auscultation and percussion. HEART: Revealed normal first and second heart sound. There is soft S4. There is no S3. There are no murmurs, rubs, thrills, heaves or gallops. PMI is nondisplaced. ABDOMEN: Soft and flat and is tender, especially in [place] [address] CONSULTATION Name: DOROTEO BHAKTA Room: [address] IN [facility]#: [id number] Admission: 11/04/19 Attend Phys: Claudine Vazquez Discharge: Date of : 76 Report #: [id number] and in the epigastric area. There are no other areas of tenderness. There are no palpable masses, no organomegaly. EXTREMITIES: Reveal no cyanosis, clubbing or edema. NEUROLOGIC: The patient mentated normally, talked normally, and moved all extremities normally. LABORATORY DATA: Chest x-ray is said to be normal. She had a CT of the chest that showed some possible adenopathy in the right paratracheal area, otherwise it was unremarkable. IMPRESSION: 1. Chest pain. 2. Bradycardia. 3. Orthostatic hypotension. 4. Bipolar affective disorder. 5. Posttraumatic stress disorder. 6. Social anxiety disorder. 7. Possible drug abuse. 8. Probable hypotension and bradycardia secondary to medications. RECOMMENDATION: Stop the amitriptyline and Compazine and investigate the other drugs to see if they could be contributing to this. I would be sure and hydrate her aggressively. Check her thyroid function and check a lipid profile and get a nuclear stress test. Thank you very much for asking me to see the patient. If there are any questions, please feel free to contact me. <ELECTRONICALLY SIGNED> By: Shalom Loera MD, FACC 11/07/19 1603 [id number]. Carlos Loera MD, FACC /nt
--- NOTE | 2019-11-07 16:19 | CARDNUC ---
[place] [address] CARDIAC NUCLEAR IMAGING REPORT Name: DOROTEO BHAKTA Fer Room: [address] IN [facility]#: [id number] Admission: 11/04/19 Attend Phys: Yariel Henry Discharge: Date of : 76 Date of Service: 11/07/19 1617 Report #: [id number] THIS REPORT FOR: cc: Bryan Dominguez Steve T. DO Biggs, F. Douglas MD [facility] ~ APPROVED REPORT Study performed: 11/05/2019 13:28:00 Indication: Chest pain, Dyspnea, Syncope, light headedness, orthostatic hypotension. Patient Location: In-Patient Room #: 202 Stress Tech: Jaylin Stafford Stress Nurse: Anika Huizar RN Ht: 5 ft 6 in Wt: 225 lbs BSA: 2.10 m2 BMI: 36.31 Medical History Medical History: Sinus Bradycardia, Obesity, chest pain/pressure, dyspnea, LE edema, nausea, syncope, lightheadedness/dizziness, weakness, orthostatic hypotension, DJD/ Back pain, MRSA, current smoker, hypertension. Medications: No cardiac meds. Allergies: NSAIDS, Scopolamine, tape/adhesives. Cardiac Risk Factors: Current Smoker, FHX of CAD, SOB, Tobacco History (Current/Recent), symptomatic bradycardia, edema , HTN, obesity. Previous Cardiac Procedures: None Pretest Chest Pain Characteristics: No chest pain Exercise History: Indeterminate Physical Disabilities: back pain/DJD, contact precautions, weakness. Meds Held (24 hrs): None Resting Data Rest SPECT myocardial perfusion imaging was performed in supine position 40 minutes following the intravenous injection of 32.5 mCi of Tc-99m Sestamibi. Time of rest injection: 08:50 The images were gated to evaluate regional wall motion and calculate left ventricular [place] [address] CARDIAC NUCLEAR IMAGING REPORT Name: DOROTEO BHAKTA Room: [address] IN [facility]#: [id number] Admission: 11/04/19 Attend Phys: Yariel Henry Discharge: Date of : 76 Date of Service: 11/07/19 1617 Report #: [id number] Administration Route: IV Administration Site: Other Pharmacologic Stress Pharmacologic stress test was performed by injecting Regadenoson 0.4 mg IV push over 10-15 seconds immediately followed by the intravenous injection of 28.3 mCi of Tc-99m Sestamibi. Time of stress injection: 11:14 Date: 11/06/2019 Administration Route: IV Administration Site: Other Heart Rate at time of stress injection: 124 bpm. Gated Stress SPECT was performed 45 minutes after stress injection. The images were gated to evaluate regional wall motion and calculate left ventricular ejection fraction. Stress Test Details Stress Test: Pharmacologic stress testing performed using 0.4 mg of regadenoson per 5 mL given IV over 10 seconds. Reason for pharmacologic stress test: DJD/back pain, weakness, contact precautions.. HR Max Heart Rate (APMHR): 180 bpm Resting HR: 79 bpm Target HR (85% APMHR): 153 bpm Max HR Achieved: 135 bpm % of APMHR: 75 Recovery HR: 88 bpm HR response to stress: Normal HR response to stress BP Resting BP: 130/109 mmHg Max BP: 134/93 mmHg Recovery BP: 133/97 mmHg BP response to stress: Normal blood pressure response to stress. ECG Resting ECG: Sinus Rhythm, normal EKG Stress ECG: Sinus Tachycardia, normal EKG ST Change: None Arrhythmia: None Recovery ECG: Sinus Rhythm, normal EKG Recovery ST Change: None Recovery Arrhythmia: None Clinical Reason for Termination: [place] [address] CARDIAC NUCLEAR IMAGING REPORT Name: DOROTEO BHAKTA Fer Room: [address]#: [id number] Admission: 11/04/19 Attend Phys: Yariel Henry Discharge: Date of : 76 Date of Service: 11/07/19 1617 Report #: [id number] Stress Symptoms: Lightheaded, Nausea, Dyspnea. Exercise duration: 00 min 00 sec Exercise capacity: 1.00 METs Nurse Comments A 38 year old female inpatient presented for a sitting lexiscan r/t recent chest pain/pressure, dyspnea, sinus bradycardia, lightheadedness and weakness. Test well tolerated. Recovery unremarkable with PO caffeine, effective. Patient was escorted by staff via wheelchair to Nuclear Medicine for imaging. Patient was stable and stated she felt better at that time. Stress ECG Conclusion Clinical: Non-ischemic Non-diagnostic pharmacologic stress due to failure to attain target HR. Study Quality Study: Good Artifact: Mild Soft tissue attenuation artifact Lung Uptake: Normal Study Data At rest, the left ventricular ejection fraction was 53%.. Post stress, the left ventricular ejection was 56%.. SSS: 5 SRS: the SDS: 2 TID = 0.97. Perfusion The resting study demonstrated a small mild lateral defect and a small moderate in size inferior defect. The post stress images demonstrated only a very small very mild lateral defect and a very small very mild inferior defect. There therefore no reversible defects seen is no evidence of ischemia. Prone images were not obtained. Images were reviewed using [employer]. Wall Motion Normal left ventricular wall motion. Nuclear Conclusion ECG Findings: non-diagnostic Clinical Findings: negative for ischemia Nuclear Findings: [place] [address] CARDIAC NUCLEAR IMAGING REPORT Name: YONYDOROTEO L Room: [address]#: [id number] Admission: 11/04/19 Attend Phys: Yariel Henry Discharge: Date of : 76 Date of Service: 11/07/19 1617 Report #: [id number] Exercise Capacity: not assessed Left Ventricular Function: normal Risk Study: low Normal study. No scintigraphic evidence for myocardial ischemia or scar. <Conclusion> Clinical: Non-ischemic Non-diagnostic pharmacologic stress due to failure to attain target HR. <ELECTRONICALLY SIGNED> By: Shalom Loera MD, FACC 11/07/191616 16 16 Shalom Loera MD, FACC /INF
--- NOTE | 2019-11-07 17:32 | NUR ---
ASSUMED CARE OF PATIENT AT APPROX 0730. ALERT AND ORIENTED X4. ASSESSMENT COMPLETED AND CHARTED. VSS ON ROOM AIR. COMPLAINT OF PAIN ADDRESSED WITH ORAL OXY. PATIENTS PORT DEACCESSED. PATIENT DISCHARGED AT 1650 WITH ALL PERSONAL BELONGINGS, PRESCRIPTIONS AND DISCHARGE INFORMATION.
[2019-11-08 02:07] LABS: GLYCOHEMOGLOBIN (HGB A1C) 5.1 % (4.8-5.6)
--- NOTE | 2019-11-08 13:46 | NUR ---
PT. DISCHARGED 11/06 PRIOR TO O.T. EVALUATION. PLEASE ORDER FURTHER O.T. SERVICES IF NEEDED.
== END 2019-11-07 16:50 | disposition home or self-care (01) | DRG 312 ==
LOC: M.ERS 11:50 → M.TBA-ER 13:04 → M.2W 13:04
PROVIDERS: Emergency Medicine Emergency Medical Services; Internal Medicine; ADMIT Internal Medicine
DX: I95.1 Orthostatic hypotension (principal); I67.82 Cerebral ischemia; G81.94 Hemiplegia, unspecified affecting left nondominant side; I13.0 Hypertensive heart and chronic kidney disease with heart failure and stage 1 through stage 4 chronic kidney disease, or unspecified chronic kidney disease; I50.32 Chronic diastolic (congestive) heart failure; E44.0 Moderate protein-calorie malnutrition; N18.3 Chronic kidney disease, stage 3 (moderate); E89.0 Postprocedural hypothyroidism; M51.16 Intervertebral disc disorders with radiculopathy, lumbar region; F31.9 Bipolar disorder, unspecified; F43.10 Post-traumatic stress disorder, unspecified; M48.061 Spinal stenosis, lumbar region without neurogenic claudication; E28.2 Polycystic ovarian syndrome; F17.210 Nicotine dependence, cigarettes, uncomplicated; I34.0 Nonrheumatic mitral (valve) insufficiency; K31.84 Gastroparesis; E83.51 Hypocalcemia; F41.9 Anxiety disorder, unspecified; F14.10 Cocaine abuse, uncomplicated; F11.10 Opioid abuse, uncomplicated; Z86.73 Personal history of transient ischemic attack (TIA), and cerebral infarction without residual deficits; Z85.850 Personal history of malignant neoplasm of thyroid; Z98.84 Bariatric surgery status; Z79.899 Other long term (current) drug therapy; Z90.49 Acquired absence of other specified parts of digestive tract; Z79.84 Long term (current) use of oral hypoglycemic drugs; Z88.8 Allergy status to other drugs, medicaments and biological substances; Z91.048 Other nonmedicinal substance allergy status; Z83.3 Family history of diabetes mellitus; Z98.891 History of uterine scar from previous surgery; Z82.49 Family history of ischemic heart disease and other diseases of the circulatory system; Z68.36 Body mass index [BMI] 36.0-36.9, adult

== ENCOUNTER → 2019-11-16 | Outpatient (CLI) | payer OTHER ==
[~2019-11-16] MED LIST changes: +ACETAMINOPHEN500 M1 PO; +ASA81BEC PO; +LISINOPRIL2.5 MG PO; +ROXICODONE5 M2 PO
[2019-11-16 12:54] VITALS: BP 118/68
== END ==
LOC: M.INFUS 01:31
DX: K31.84 Gastroparesis (principal); E86.0 Dehydration

== ENCOUNTER → 2019-12-14 | Outpatient (CLI) | payer OTHER ==
[2019-12-14 09:00] VITALS: BP 122/88
[2019-12-14 10:30] VITALS: BP 132/88
[2019-12-14 12:30] VITALS: BP 141/90
--- NOTE | 2019-12-14 13:13 | NUR ---
PORT INTACT AND PATENT. INFUSION COMPLETED AND TOELRATED WELL. ROC QUESTIONS OR NEEDS AT DISCHARGE.
== END ==
LOC: M.INFUS 04:13
DX: E86.0 Dehydration (principal); K31.84 Gastroparesis

== ENCOUNTER 2019-12-29 09:53 | Emergency (ER) | payer OTHER ==
[~2019-12-29] VITALS: Ht 167.6 cm; Wt 93.4 kg
[2019-12-29] MEDS ORDERED: AMOXICILLIN 50500 MG PO (10:25)
[2019-12-29] MEDS ORDERED: NORCO 5-325 TA1 EAC1 PO (10:25)
[2019-12-29 10:32] VITALS: BP 143/100
== END 2019-12-29 10:33 | disposition home or self-care (01) ==
LOC: M.ERS 09:53
DX: K02.9 Dental caries, unspecified (principal); G89.18 Other acute postprocedural pain; E89.0 Postprocedural hypothyroidism; I13.0 Hypertensive heart and chronic kidney disease with heart failure and stage 1 through stage 4 chronic kidney disease, or unspecified chronic kidney disease; N18.3 Chronic kidney disease, stage 3 (moderate); I50.32 Chronic diastolic (congestive) heart failure; Z87.891 Personal history of nicotine dependence; Z88.6 Allergy status to analgesic agent; Z88.8 Allergy status to other drugs, medicaments and biological substances; Z98.890 Other specified postprocedural states; Z90.49 Acquired absence of other specified parts of digestive tract; Z85.850 Personal history of malignant neoplasm of thyroid

== ENCOUNTER → 2020-01-04 | Outpatient (CLI) | payer OTHER ==
[~2020-01-04] MED LIST changes: +AMOXICILLIN 50500 MG PO
[2020-01-04 10:15] VITALS: BP 144/100
--- NOTE | 2020-01-04 13:34 | NUR ---
PATIENT BLOOD PRESSURE SLIGHTLY ELEVATED. PATIENT STATES THIS IS A NORMAL FINDING DESPITED TAKING HER B/P MEDS PER SCHEDULE. PATIENT ANTICIPATES PANNICULECTOMY AND HERIHORRAPHY TOMORROW WITH DR DANIELSON AT [facility]. PATEIRNT STATES THAT SHE IS AWARE OF BLOOD PRESSURE.
[2020-01-04 13:36] VITALS: BP 156/106
== END ==
LOC: M.INFUS 04:14
DX: K31.84 Gastroparesis (principal); E86.0 Dehydration

== ENCOUNTER → 2020-01-25 | Outpatient (CLI) | payer OTHER ==
[2020-01-25 08:47] VITALS: BP 113/78
[2020-01-25 10:45] VITALS: BP 122/84
--- NOTE | 2020-01-25 10:53 | NUR ---
ARRIVED AMBULATORY. MADE SELF COMFORTABLE IN RECLINER. PORT ACCESSED WITH OUT DIFFICULTY. BLOOD RETURN NOTED TO BE SLUGGISH. INFUSION STARTED AND WAS RUNNING WELL. PT RECIEVED PHONE CALL AND THEN STATED SHE HAD AN EMERGENCY AT HOME AND NEEDED TO STOP THE INFUISON. INFUSION STOPPED PORT FLUSHED AND DEACCESSED. DENEIS NEEDS AT DISCHARGE.
== END ==
LOC: M.INFUS 05:11
PROVIDERS: ATTEND Family Medicine
DX: E86.0 Dehydration (principal)

== ENCOUNTER 2020-02-28 11:55 | Emergency (ER) | payer OTHER | END 2020-02-28 13:09 | disposition left against medical advice (07) | LOC: M.ERS 11:55 | DX: R53.1 Weakness (principal); R42 Dizziness and giddiness; I10 Essential (primary) hypertension; Z87.891 Personal history of nicotine dependence; Z88.6 Allergy status to analgesic agent; Z88.8 Allergy status to other drugs, medicaments and biological substances; Z79.82 Long term (current) use of aspirin; Z79.899 Other long term (current) drug therapy; Z98.84 Bariatric surgery status; Z98.890 Other specified postprocedural states; Z90.49 Acquired absence of other specified parts of digestive tract; Z85.850 Personal history of malignant neoplasm of thyroid; Z95.0 Presence of cardiac pacemaker ==